=== PATIENT | female | born 1990 | race Hispanic/Latino ===

== ENCOUNTER 2021-01-23 17:09 | Emergency (ER) | payer BC, SELFPAY ==
[2021-01-23] MEDS ORDERED: METHYLPREDNISOLONE 125 MG INJ ONE (18:16)
[2021-01-23] MEDS ORDERED: DIPHENHYDRAMINE 50 MG/ML VIAL ONE (18:16)
--- NOTE | 2021-01-23 18:24 | EDPHYS ---
Physician Documentation [facility] Name: Deyanira Valencia Age: 30 yrs Sex: Female : 1990 Arrival Date: 01/23/2021 Time: 17:09 Bed 14 Private MD: Sindi Cao K ED Physician [place] Osorio HPI: 01/23 18:19 This 30 yrs old Female presents to ER via Ambulatory with complaints of Rash, rn Allergic Reaction. 18:19 The patient's rash thought to be caused by an unknown cause. The rash is located on the rn body diffusely. The rash can be described as erythematous, papular. Onset: The symptoms/episode began/occurred 2 week(s) ago. Associated signs and symptoms: Pertinent positives: itching, Pertinent negatives: burning sensation, difficulty breathing, fever, Pain. Severity of symptoms: At their worst the symptoms were mild in the emergency department the symptoms are unchanged. The patient has not experienced similar symptoms in the past. The patient has not recently seen a physician. And reports diffuse rash to entire body, started on torso and has spread to extremities, is very itchy. No shortness of breath or abdominal pain. No focal swelling. No change in medication or dosages. No known allergies. States improves with cortisone but then itchiness and rash returns.. Historical: - Allergies: 17:48 No Known Allergies; iw - Immunization history:: Adult Immunizations up to date. - Social history:: Smoking status: . - Family history:: not pertinent. - Hospitalizations: : No recent hospitalization is reported. ROS: 18:19 Constitutional: Negative for fever, chills, and weight loss, Eyes: Negative for injury, rn pain, redness, and discharge, Neck: Negative for injury, pain, and swelling, Cardiovascular: Negative for chest pain, palpitations, and edema, Respiratory: Negative for shortness of breath, cough, wheezing, and pleuritic chest pain, Abdomen/GI: Negative for abdominal pain, nausea, vomiting, diarrhea, and constipation, Back: Negative for injury and pain, : Negative for injury, bleeding, discharge, and swelling, MS/Extremity: Negative for injury and deformity, Skin: Positive for rash and itching Neuro: Negative for headache, weakness, numbness, tingling, and seizure. Exam: 18:19 Constitutional: This is a well developed, well nourished patient who is awake, alert, rn and in no acute distress. Head/Face: Normocephalic, atraumatic. Eyes: Pupils equal round and reactive to light, extra-ocular motions intact. Lids and lashes normal. Conjunctiva and sclera are non-icteric and not injected. Cornea within normal limits. Periorbital areas with no swelling, redness, or edema. ENT: No oral swelling or stridor Cardiovascular: Regular rate and rhythm. No pulse deficits. Respiratory: No increased work of breathing, no retractions or nasal flaring. Skin: Warm, dry, papular rash with excoriations diffusely. No bullae. No desquamation. No rash in flexural surfaces or on the hands. Vital Signs: 17:47 BP 113 / 84; Pulse 98; Resp 16; Temp 97.4; Pulse Ox 100% on R/A; iw 18:40 BP 124 / 87; Pulse 58; Resp 18; Pulse Ox 99% on R/A; jt3 MDM: 17:33 Patient medically screened. rn 18:19 Differential diagnosis: allergic reaction, Allergic reaction, drug reaction. Data rn reviewed: vital signs, nurses notes, and as a result, I will discharge patient. Counseling: I had a detailed discussion with the patient and/or guardian regarding: the historical points, exam findings, and any diagnostic results supporting the discharge/admit diagnosis, the need for outpatient follow up, to return to the emergency department if symptoms worsen or persist or if there are any questions or concerns that arise at home. Special discussion: I discussed with the patient/guardian in detail that at this point there is no indication for admission to the hospital. It is understood, however, that if the symptoms persist or worsen the patient needs to return immediately for re-evaluation. Administered Medications: 18:28 Drug: SOLU-Medrol (methylPREDNISolone sodium succinate) 125 mg Route: IM; Site: right jt3 gluteus; 18:51 Follow up: Response: No adverse reaction jt3 18:28 Drug: Benadryl (diphenhydrAMINE) 25 mg Route: IM; Site: right deltoid; jt3 18:51 Follow up: Response: No adverse reaction jt3 Disposition Summary: 01/23/21 18:23 Discharge Ordered Location: Home rn Problem: new rn Symptoms: have improved rn Condition: Stable rn Diagnosis - Rash and other nonspecific skin eruption rn Followup: rn - With: Private Physician - When: As needed - Reason: Recheck today's complaints, Re-evaluation by your physician Discharge Instructions: - Discharge Summary Sheet rn - Rash, Adult rn Forms: - Medication Reconciliation Form rn - Thank You Letter rn - Antibiotic infection control rn - Prescription Opioid Use rn - Work release form jt3 Prescriptions: - Hydroxyzine HCl 50 mg Oral Tablet - take 1 tablet by ORAL route every 8 hours As needed; 20 tablet; Refills: 0, rn Product Selection Permitted - Prednisone 20 mg Oral Tablet - take 3 tablets by ORAL route once daily for 5 days; 15 tablet; Refills: 0, rn Product Selection Permitted Signatures: Germania Haddad, RN Chico Zepeda MD MD rn TejcNicola santana RN RN jt3
--- NOTE | 2021-01-23 18:24 | ER ---
Nurse's Notes [facility] Name: Deyanira Valencia Age: 30 yrs Sex: Female : 1990 Arrival Date: 01/23/2021 Time: 17:09 Bed 14 Private MD: Sindi Cao K Diagnosis: Rash and other nonspecific skin eruption Presentation: 01/23 17:47 Chief complaint: Patient states: diffuse rash over torso and arms X 2 weeks , itchy. iw Coronavirus screen: At this time, the client does not indicate any symptoms associated with coronavirus-19. Ebola Screen: Patient negative for fever greater than or equal to 101.5 degrees Fahrenheit, and additional compatible Ebola Virus Disease symptoms Patient denies exposure to infectious person. Patient denies travel to an Ebola-affected area in the 21 days before illness onset. No symptoms or risks identified at this time. Onset: The symptoms/episode began/occurred 2 week(s) ago. Anaphylaxis evaluation, no signs or symptoms of anaphylaxis were noted. Initial Sepsis Screen: Does the patient meet any 2 criteria? No. Patient's initial sepsis screen is negative. Does the patient have a suspected source of infection? No. Patient's initial sepsis screen is negative. Risk Assessment: Do you want to hurt yourself or someone else? Patient reports no desire to harm self or others. Onset of symptoms was January 08, 2021. 17:47 Method Of Arrival: Ambulatory 17:47 Acuity: TONEY 5 iw Historical: - Allergies: 17:48 No Known Allergies; iw - Immunization history:: Adult Immunizations up to date. - Social history:: Smoking status: . - Family history:: not pertinent. - Hospitalizations: : No recent hospitalization is reported. Screenin:08 Abuse screen: Denies threats or abuse. Denies injuries from another. Nutritional jt3 screening: No deficits noted. Tuberculosis screening: No symptoms or risk factors identified. Fall Risk None identified. Assessment: 18:08 General: Appears in no apparent distress. Behavior is calm, cooperative. Pain: Denies jt3 pain. Respiratory: No deficits noted. Airway is patent Respiratory effort is even, unlabored, Breath sounds are clear. Derm: Rash noted that is red, Pt. reports small red bumps on her abdomen and under her breast. Alert and oriented x4. Denies difficulty breathing. Vital Signs: 17:47 BP 113 / 84; Pulse 98; Resp 16; Temp 97.4; Pulse Ox 100% on R/A; iw 18:40 BP 124 / 87; Pulse 58; Resp 18; Pulse Ox 99% on R/A; jt3 ED Course: 17:09 Patient arrived in ED. am2 17:10 Sindi Cao MD is Private Physician. am2 17:33 Chico Osorio MD is Attending Physician. rn 17:48 Triage completed. iw 17:49 Arm band placed on. iw 18:04 Nicola Iniguez RN is Primary Nurse. jt3 18:08 Patient has correct armband on for positive identification. Bed in low position. Call jt3 light in reach. Side rails up X2. 18:08 No provider procedures requiring assistance completed. jt3 Administered Medications: 18:28 Drug: SOLU-Medrol (methylPREDNISolone sodium succinate) 125 mg Route: IM; Site: right jt3 gluteus; 18:51 Follow up: Response: No adverse reaction jt3 18:28 Drug: Benadryl (diphenhydrAMINE) 25 mg Route: IM; Site: right deltoid; jt3 18:51 Follow up: Response: No adverse reaction jt3 Outcome: 18:23 Discharge ordered by . rn 18:45 Discharged to home ambulatory. jt3 18:45 Condition: improved 18:45 Discharge instructions given to patient. 18:49 Patient left the ED. jt3 Signatures: Germania Haddad RN DOTTY Chico Osorio MD MD rn Moreno, Amanda am2 Nicola Iniguez RN RN jt3
[2021-01-23 18:54] VITALS: TEMP 97.4
[2021-01-23 18:55] VITALS: BP 124/87; O2SAT 99
== END 2021-01-23 18:49 | disposition home or self-care (01) ==
LOC: ER 17:09
DX: R21 Rash and other nonspecific skin eruption (principal)
CPT/HCPCS: 96372; 99283; J1200; J2930

== ENCOUNTER 2022-06-08 14:33 | Emergency (ER) | payer OTHER ==
--- OUTSIDE RECORDS SUMMARY | 2022-06-08 14:39 | XMS REPORT | Continuity of Care Document ---
:1990 [facility] t Address [address] [facility] [address] [place] [address] Care Team Providers Name Role Phone Sindi Cao MD Primary Care Physician Jazzy Dominguez Attending Clinician Unavailable [email or web address] Attending Clinician Unavailable Dana Nunn MD Attending Clinician DANA NUNN Attending Clinician Unavailable Jazzy Dominguez Attending Clinician [phone] [email or web address] Attending Clinician Unavailable Gabino Alexis Attending Clinician [phone] DAVID VAUGHN Attending Clinician Unavailable MARIANA WAITE Attending Clinician Unavailable Jazzy Dominguez Admitting Clinician Unavailable [email or web address] Admitting Clinician Unavailable Dana Nunn MD Admitting Clinician DANA NUNN Admitting Clinician Unavailable GC_[place] Admitting Clinician Unavailable Payers Payer Name Policy Type Policy Number Effective Date Expiration Date Serena strong [facility] [id number] 2021 CHOICE (MEDICAID 00:00:00 REPLACEMENT - HMO) Problems Condition Condition Condition Status Onset Resolution Last Treating Co mments Source Name Details Category Date Date Treatment Clinician Date Alteration Alteration Disease Active 2021-03 [facility] in comfort in comfort 0-07 [facility] [place] [facility] uterine uterine Branch contractio contractio ns ns SARS-CoV-2 SARS-CoV-2 Problem Active [facility] 7[facility]06 Medical 00:00: 00 Genital Genital Problem Active [facility] herpes Herpes 5-12 Medical simplex Simplex 00:00: 00 Bile leak Bile leak Disease Active 2012-[address] [facility] Injury of Injury of Disease Active 2012-[address] [facility] bile duct bile duct 0[facility]28 [facility] Chest pain Chest pain Disease [facility] [place] Disease Active [facility] lithiasis lithiasis 7-16 [facility] with with 00:00: Medical obstructio obstructio 00 Ce nter n n ARF (acute ARF (acute Disease Active [facility] renal renal 7[facility] failure) failure) 00[facility] Medica l 00 Center Abdominal Abdominal Disease Active [facility] pain pain [facility] Allergies, Adverse Reactions, Alerts Allergy Allergy Status Severity Reaction(s) Onset Inactive Treating Comm ents Source Name Type Date Date Clinician No Known DA Active U 2021-03 [facility] [place] NO KNOWN Drug Active Univers ALLERGIE Class ity [facility] Social History Social Habit Start Date Stop Date Quantity Comments Source ASSERTION 2021-04-23 [facility] 00[facility]00 [facility] Alcohol intake 2015-09-02 2015-09-[address] [facility] 00:00:00 00:00:00 non-drinker of Medical Ce nter alcohol (finding) Sex Assigned At [address] [facility] 00:[facility]00 [facility] Smoking Status Start Date Stop Date Source Never Smoker [facility] Tobacco smoking consumption unknown [facility] Medications Ordered Filled Start Stop Current Ordering Indication Dosage Frequency Signature Comments Components Source Medication Medication Date Date Medication? Clinician (SIG) Name Name acyclovir acyclovir No 1 Q8H acyclovir [facility] 400 mg 400 mg 400 mg [facility] tablet Take tablet Take tablet 1 tablet 1 tablet Take 1 every 8 every 8 tablet hours by hours by every 8 oral route oral route hours by for 30 for 30 oral route days. days. for 30 days. fluticasone fluticasone No fluticason [facility] propionate propionate e Med ical 50 50 propionate mcg/actuati mcg/actuati 50 on nasal on nasal mcg/actuat spray,suspe spray,suspe ion nasal nsion SHAKE nsion SHAKE spray,susp LIQUID AND LIQUID AND ension USE 1 SPRAY USE 1 SPRAY SHAKE IN EACH IN EACH LIQUID AND NOSTRIL NOSTRIL USE 1 EVERY DAY EVERY DAY SPRAY IN EACH NOSTRIL EVERY DAY metronidazo metronidazo No 1 BID metronidaz [facility] le 500 mg le 500 mg ole 500 mg Medical tablet Take tablet Take tablet 1 tablet 1 tablet Take 1 twice a day twice a day tablet by oral by oral twice a route for 7 route for 7 day by days. days. oral route for 7 days. ondansetron ondansetron No 1 Q8H ondansetro [facility] HCl 4 mg HCl 4 mg n HCl 4 mg M edical tablet Take tablet Take tablet 1 tablet 1 tablet Take 1 every 8 every 8 tablet hours by hours by every 8 oral route. oral route. hours by oral route. valacyclovi valacyclovi No 1 Q12H valacyclov [facility] r 1 gram r 1 gram ir 1 gram Me dical tablet Take tablet Take tablet 1 tablet 1 tablet Take 1 every 12 every 12 tablet hours by hours by every 12 oral route oral route hours by for 7 days. for 7 days. oral route for 7 days. acyclovir acyclovir No 1 Q8H acyclovir [facility] 400 mg 400 mg 400 mg Medical tablet Take tablet Take tablet 1 tablet 1 tablet Take 1 every 8 every 8 tablet hours by hours by every 8 oral route oral route hours by for 30 for 30 oral route days. days. for 30 days. fluticasone fluticasone No fluticason [facility] propionate propionate e Med ical 50 50 propionate mcg/actuati mcg/actuati 50 on nasal on nasal mcg/actuat spray,suspe spray,suspe ion nasal nsion SHAKE nsion SHAKE spray,susp LIQUID AND LIQUID AND ension USE 1 SPRAY USE 1 SPRAY SHAKE IN EACH IN EACH LIQUID AND NOSTRIL NOSTRIL USE 1 EVERY DAY EVERY DAY SPRAY IN EACH NOSTRIL EVERY DAY metronidazo metronidazo No 1 BID metronidaz [facility] le 500 mg le 500 mg ole 500 mg Medical tablet Take tablet Take tablet 1 tablet 1 tablet Take 1 twice a day twice a day tablet by oral by oral twice a route for 7 route for 7 day by days. days. oral route for 7 days. ondansetron ondansetron No 1 Q8H ondansetro [facility] HCl 4 mg HCl 4 mg n HCl 4 mg M edical tablet Take tablet Take tablet 1 tablet 1 tablet Take 1 every 8 every 8 tablet hours by hours by every 8 oral route. oral route. hours by oral route. valacyclovi valacyclovi No 1 Q12H valacyclov [facility] r 1 gram r 1 gram ir 1 gram Me dical tablet Take tablet Take tablet 1 tablet 1 tablet Take 1 every 12 every 12 tablet hours by hours by every 12 oral route oral route hours by for 7 days. for 7 days. oral route for 7 days. acyclovir acyclovir No acyclovir [facility] 400 mg 400 mg 400 mg Medical tablet TAKE tablet TAKE tablet 1 TABLET BY 1 TABLET BY TAKE 1 MOUTH EVERY MOUTH EVERY TABLET BY 8 HOURS 8 HOURS MOUTH EVERY 8 HOURS fluticasone fluticasone No fluticason [facility] propionate propionate e Med ical 50 50 propionate mcg/actuati mcg/actuati 50 on nasal on nasal mcg/actuat spray,suspe spray,suspe ion nasal nsion SHAKE nsion SHAKE spray,susp LIQUID AND LIQUID AND ension USE 1 SPRAY USE 1 SPRAY SHAKE IN EACH IN EACH LIQUID AND NOSTRIL NOSTRIL USE 1 EVERY DAY EVERY DAY SPRAY IN EACH NOSTRIL EVERY DAY metronidazo metronidazo No 1 BID metronidaz [facility] le 500 mg le 500 mg ole 500 mg Medical tablet Take tablet Take tablet 1 tablet 1 tablet Take 1 twice a day twice a day tablet by oral by oral twice a route for 7 route for 7 day by days. days. oral route for 7 days. ondansetron ondansetron No 1 Q8H ondansetro [facility] HCl 4 mg HCl 4 mg n HCl 4 mg M edical tablet Take tablet Take tablet 1 tablet 1 tablet Take 1 every 8 every 8 tablet hours by hours by every 8 oral route. oral route. hours by oral route. valacyclovi valacyclovi No 1 Q12H valacyclov [facility] r 1 gram r 1 gram ir 1 gram Me dical tablet Take tablet Take tablet 1 tablet 1 tablet Take 1 every 12 every 12 tablet hours by hours by every 12 oral route oral route hours by for 7 days. for 7 days. oral route for 7 days. acyclovir acyclovir No acyclovir [facility] 400 mg 400 mg 400 mg Medical tablet TAKE tablet TAKE tablet 1 TABLET BY 1 TABLET BY TAKE 1 MOUTH EVERY MOUTH EVERY TABLET BY 8 HOURS 8 HOURS MOUTH EVERY 8 HOURS fluticasone fluticasone No fluticason [facility] propionate propionate e Med ical 50 50 propionate mcg/actuati mcg/actuati 50 on nasal on nasal mcg/actuat spray,suspe spray,suspe ion nasal nsion SHAKE nsion SHAKE spray,susp LIQUID AND LIQUID AND ension USE 1 SPRAY USE 1 SPRAY SHAKE IN EACH IN EACH LIQUID AND NOSTRIL NOSTRIL USE 1 EVERY DAY EVERY DAY SPRAY IN EACH NOSTRIL EVERY DAY metronidazo metronidazo No 1 BID metronidaz [facility] le 500 mg le 500 mg ole 500 mg Medical tablet Take tablet Take tablet 1 tablet 1 tablet Take 1 twice a day twice a day tablet by oral by oral twice a route for 7 route for 7 day by days. days. oral route for 7 days. ondansetron ondansetron No 1 Q8H ondansetro [facility] HCl 4 mg HCl 4 mg n HCl 4 mg M edical tablet Take tablet Take tablet 1 tablet 1 tablet Take 1 every 8 every 8 tablet hours by hours by every 8 oral route. oral route. hours by oral route. valacyclovi valacyclovi No 1 Q12H valacyclov [facility] r 1 gram r 1 gram ir 1 gram Me dical tablet Take tablet Take tablet 1 tablet 1 tablet Take 1 every 12 every 12 tablet hours by hours by every 12 oral route oral route hours by for 7 days. for 7 days. oral route for 7 days. ondansetron ondansetron No 1 Q8H ondansetro [facility] HCl 4 mg HCl 4 mg n HCl 4 mg M edical tablet Take tablet Take tablet 1 tablet 1 tablet Take 1 every 8 every 8 tablet hours by hours by every 8 oral route. oral route. hours by oral route. ondansetron ondansetron No 1 Q8H ondansetro [facility] HCl 4 mg HCl 4 mg n HCl 4 mg M edical tablet Take tablet Take tablet 1 tablet 1 tablet Take 1 every 8 every 8 tablet hours by hours by every 8 oral route. oral route. hours by oral route. ondansetron ondansetron No 1 Q8H ondansetro [facility] HCl 4 mg HCl 4 mg n HCl 4 mg M edical tablet Take tablet Take tablet 1 tablet 1 tablet Take 1 every 8 every 8 tablet hours by hours by every 8 oral route. oral route. hours by oral route. valacyclovi valacyclovi No 1 Q12H valacyclov [facility] r 1 gram r 1 gram ir 1 gram Me dical tablet Take tablet Take tablet 1 tablet 1 tablet Take 1 every 12 every 12 tablet hours by hours by every 12 oral route oral route hours by for 7 days. for 7 days. oral route for 7 days. metronidazo metronidazo No 1 BID metronidaz [facility] le 500 mg le 500 mg ole 500 mg Medical tablet Take tablet Take tablet 1 tablet 1 tablet Take 1 twice a day twice a day tablet by oral by oral twice a route for 7 route for 7 day by days. days. oral route for 7 days. ondansetron ondansetron No 1 Q8H ondansetro [facility] HCl 4 mg HCl 4 mg n HCl 4 mg M edical tablet Take tablet Take tablet 1 tablet 1 tablet Take 1 every 8 every 8 tablet hours by hours by every 8 oral route. oral route. hours by oral route. valacyclovi valacyclovi No 1 Q12H valacyclov [facility] r 1 gram r 1 gram ir 1 gram Me dical tablet Take tablet Take tablet 1 tablet 1 tablet Take 1 every 12 every 12 tablet hours by hours by every 12 oral route oral route hours by for 7 days. for 7 days. oral route for 7 days. metronidazo metronidazo No 1 BID metronidaz [facility] le 500 mg le 500 mg ole 500 mg Medical tablet Take tablet Take tablet 1 tablet 1 tablet Take 1 twice a day twice a day tablet by oral by oral twice a route for 7 route for 7 day by days. days. oral route for 7 days. ondansetron ondansetron No 1 Q8H ondansetro [facility] HCl 4 mg HCl 4 mg n HCl 4 mg M edical tablet Take tablet Take tablet 1 tablet 1 tablet Take 1 every 8 every 8 tablet hours by hours by every 8 oral route. oral route. hours by oral route. valacyclovi valacyclovi No 1 Q12H valacyclov [facility] r 1 gram r 1 gram ir 1 gram Me dical tablet Take tablet Take tablet 1 tablet 1 tablet Take 1 every 12 every 12 tablet hours by hours by every 12 oral route oral route hours by for 7 days. for 7 days. oral route for 7 days. metronidazo metronidazo No 1 BID metronidaz [facility] le 500 mg le 500 mg ole 500 mg Medical tablet Take tablet Take tablet 1 tablet 1 tablet Take 1 twice a day twice a day tablet by oral by oral twice a route for 7 route for 7 day by days. days. oral route for 7 days. ondansetron ondansetron No 1 Q8H ondansetro [facility] HCl 4 mg HCl 4 mg n HCl 4 mg M edical tablet Take tablet Take tablet 1 tablet 1 tablet Take 1 every 8 every 8 tablet hours by hours by every 8 oral route. oral route. hours by oral route. valacyclovi valacyclovi No 1 Q12H valacyclov [facility] r 1 gram r 1 gram ir 1 gram Me dical tablet Take tablet Take tablet 1 tablet 1 tablet Take 1 every 12 every 12 tablet hours by hours by every 12 oral route oral route hours by for 7 days. for 7 days. oral route for 7 days. metronidazo metronidazo No 1 BID metronidaz [facility] le 500 mg le 500 mg ole 500 mg Medical tablet Take tablet Take tablet 1 tablet 1 tablet Take 1 twice a day twice a day tablet by oral by oral twice a route for 7 route for 7 day by days. days. oral route for 7 days. ondansetron ondansetron No 1 Q8H ondansetro [facility] HCl 4 mg HCl 4 mg n HCl 4 mg M edical tablet Take tablet Take tablet 1 tablet 1 tablet Take 1 every 8 every 8 tablet hours by hours by every 8 oral route. oral route. hours by oral route. valacyclovi valacyclovi No 1 Q12H valacyclov [facility] r 1 gram r 1 gram ir 1 gram Me dical tablet Take tablet Take tablet 1 tablet 1 tablet Take 1 every 12 every 12 tablet hours by hours by every 12 oral route oral route hours by for 7 days. for 7 days. oral route for 7 days. metronidazo metronidazo No 1 BID metronidaz [facility] le 500 mg le 500 mg ole 500 mg Medical tablet Take tablet Take tablet 1 tablet 1 tablet Take 1 twice a day twice a day tablet by oral by oral twice a route for 7 route for 7 day by days. days. oral route for 7 days. ondansetron ondansetron No 1 Q8H ondansetro [facility] HCl 4 mg HCl 4 mg n HCl 4 mg M edical tablet Take tablet Take tablet 1 tablet 1 tablet Take 1 every 8 every 8 tablet hours by hours by every 8 oral route. oral route. hours by oral route. valacyclovi valacyclovi No 1 Q12H valacyclov [facility] r 1 gram r 1 gram ir 1 gram Me dical tablet Take tablet Take tablet 1 tablet 1 tablet Take 1 every 12 every 12 tablet hours by hours by every 12 oral route oral route hours by for 7 days. for 7 days. oral route for 7 days. fluticasone fluticasone No fluticason [facility] propionate propionate e Med ical 50 50 propionate mcg/actuati mcg/actuati 50 on nasal on nasal mcg/actuat spray,suspe spray,suspe ion nasal nsion SHAKE nsion SHAKE spray,susp LIQUID AND LIQUID AND ension USE 1 SPRAY USE 1 SPRAY SHAKE IN EACH IN EACH LIQUID AND NOSTRIL NOSTRIL USE 1 EVERY DAY EVERY DAY SPRAY IN EACH NOSTRIL EVERY DAY metronidazo metronidazo No 1 BID metronidaz [facility] le 500 mg le 500 mg ole 500 mg Medical tablet Take tablet Take tablet 1 tablet 1 tablet Take 1 twice a day twice a day tablet by oral by oral twice a route for 7 route for 7 day by days. days. oral route for 7 days. ondansetron ondansetron No 1 Q8H ondansetro [facility] HCl 4 mg HCl 4 mg n HCl 4 mg M edical tablet Take tablet Take tablet 1 tablet 1 tablet Take 1 every 8 every 8 tablet hours by hours by every 8 oral route. oral route. hours by oral route. valacyclovi valacyclovi No 1 Q12H valacyclov [facility] r 1 gram r 1 gram ir 1 gram Me dical tablet Take tablet Take tablet 1 tablet 1 tablet Take 1 every 12 every 12 tablet hours by hours by every 12 oral route oral route hours by for 7 days. for 7 days. oral route for 7 days. acyclovir acyclovir No acyclovir [facility] 400 mg 400 mg 400 mg Medical tablet TAKE tablet TAKE tablet 1 TABLET BY 1 TABLET BY TAKE 1 MOUTH EVERY MOUTH EVERY TABLET BY 8 HOURS 8 HOURS MOUTH EVERY 8 HOURS fluticasone fluticasone No fluticason [facility] propionate propionate e Med ical 50 50 propionate mcg/actuati mcg/actuati 50 on nasal on nasal mcg/actuat spray,suspe spray,suspe ion nasal nsion SHAKE nsion SHAKE spray,susp LIQUID AND LIQUID AND ension USE 1 SPRAY USE 1 SPRAY SHAKE IN EACH IN EACH LIQUID AND NOSTRIL NOSTRIL USE 1 EVERY DAY EVERY DAY SPRAY IN EACH NOSTRIL EVERY DAY ibuprofen ibuprofen No ibuprofen [facility] 600 mg 600 mg 600 mg Medical tablet TAKE tablet TAKE tablet 1 TABLET BY 1 TABLET BY TAKE 1 MOUTH EVERY MOUTH EVERY TABLET BY 6 HOURS 6 HOURS MOUTH NEEDED FOR NEEDED FOR EVERY 6 MILD PAIN. MILD PAIN. HOURS USE FIRST USE FIRST NEEDED FOR MILD PAIN. USE FIRST metronidazo metronidazo No 1 BID metronidaz [facility] le 500 mg le 500 mg ole 500 mg Medical tablet Take tablet Take tablet 1 tablet 1 tablet Take 1 twice a day twice a day tablet by oral by oral twice a route for 7 route for 7 day by days. days. oral route for 7 days. ondansetron ondansetron No 1 Q8H ondansetro [facility] HCl 4 mg HCl 4 mg n HCl 4 mg M edical tablet Take tablet Take tablet 1 tablet 1 tablet Take 1 every 8 every 8 tablet hours by hours by every 8 oral route. oral route. hours by oral route. oxycodone 5 oxycodone 5 No oxycodone [facility] mg tablet mg tablet 5 mg Medic al TAKE 1 TAKE 1 tablet TABLET BY TABLET BY TAKE 1 MOUTH EVERY MOUTH EVERY TABLET BY 4 HOURS 4 HOURS MOUTH NEEDED FOR NEEDED FOR EVERY 4 MODERATE MODERATE HOURS PAIN PAIN NEEDED FOR MODERATE PAIN valacyclovi valacyclovi No 1 Q12H valacyclov [facility] r 1 gram r 1 gram ir 1 gram Me dical tablet Take tablet Take tablet 1 tablet 1 tablet Take 1 every 12 every 12 tablet hours by hours by every 12 oral route oral route hours by for 7 days. for 7 days. oral route for 7 days. acyclovir acyclovir No acyclovir [facility] 400 mg 400 mg 400 mg Medical tablet TAKE tablet TAKE tablet 1 TABLET BY 1 TABLET BY TAKE 1 MOUTH EVERY MOUTH EVERY TABLET BY 8 HOURS 8 HOURS MOUTH EVERY 8 HOURS fluticasone fluticasone No fluticason [facility] propionate propionate e Med ical 50 50 propionate mcg/actuati mcg/actuati 50 on nasal on nasal mcg/actuat spray,suspe spray,suspe ion nasal nsion SHAKE nsion SHAKE spray,susp LIQUID AND LIQUID AND ension USE 1 SPRAY USE 1 SPRAY SHAKE IN EACH IN EACH LIQUID AND NOSTRIL NOSTRIL USE 1 EVERY DAY EVERY DAY SPRAY IN EACH NOSTRIL EVERY DAY ibuprofen ibuprofen No ibuprofen [facility] 600 mg 600 mg 600 mg Medical tablet TAKE tablet TAKE tablet 1 TABLET BY 1 TABLET BY TAKE 1 MOUTH EVERY MOUTH EVERY TABLET BY 6 HOURS 6 HOURS MOUTH NEEDED FOR NEEDED FOR EVERY 6 MILD PAIN. MILD PAIN. HOURS USE FIRST USE FIRST NEEDED FOR MILD PAIN. USE FIRST metronidazo metronidazo No 1 BID metronidaz [facility] le 500 mg le 500 mg ole 500 mg Medical tablet Take tablet Take tablet 1 tablet 1 tablet Take 1 twice a day twice a day tablet by oral by oral twice a route for 7 route for 7 day by days. days. oral route for 7 days. ondansetron ondansetron No 1 Q8H ondansetro [facility] HCl 4 mg HCl 4 mg n HCl 4 mg M edical tablet Take tablet Take tablet 1 tablet 1 tablet Take 1 every 8 every 8 tablet hours by hours by every 8 oral route. oral route. hours by oral route. oxycodone 5 oxycodone 5 No oxycodone [facility] mg tablet mg tablet 5 mg Medic al TAKE 1 TAKE 1 tablet TABLET BY TABLET BY TAKE 1 MOUTH EVERY MOUTH EVERY TABLET BY 4 HOURS 4 HOURS MOUTH NEEDED FOR NEEDED FOR EVERY 4 MODERATE MODERATE HOURS PAIN PAIN NEEDED FOR MODERATE PAIN valacyclovi valacyclovi No 1 Q12H valacyclov [facility] r 1 gram r 1 gram ir 1 gram Me dical tablet Take tablet Take tablet 1 tablet 1 tablet Take 1 every 12 every 12 tablet hours by hours by every 12 oral route oral route hours by for 7 days. for 7 days. oral route for 7 days. Immunizations Ordered Immunization Filled Immunization Date Status Commen ts Source Name Name Tdap Tdap Unknown Completed [facility] Tdap Tdap Unknown Completed [facility] Tdap Tdap Unknown Completed [facility] Tdap Tdap Unknown Completed [facility] Tdap Tdap Unknown Completed [facility] Tdap Tdap Unknown Completed [facility] Tdap Tdap Unknown Completed [facility] Tdap Tdap Unknown Completed [facility] Tdap Tdap Unknown Completed [facility] Tdap Tdap Unknown Completed [facility] Vital Signs Vital Name Observation Time Observation Value Comments Source BP Diastolic 2022-02-26 00:00:00 62 mm[Hg] [facility] Height 2022-02-26 00:00:00 60 [in_i] [facility] BMI (Body Mass 2022-02-26 00:00:00 33.6 kg/m2 [facility] Medical Index) BP Systolic 2022-02-26 00:00:00 120 mm[Hg] [facility] Body Weight 2022-02-26 00:00:00 172 [lb_av] [facility] BP Diastolic 2022-01-23 00:00:00 80 mm[Hg] [facility] Height 2022-01-23 00:00:00 60 [in_i] [facility] BMI (Body Mass 2022-01-23 00:00:00 32.6 kg/m2 [facility] Medical Index) BP Systolic 2022-01-23 00:00:00 120 mm[Hg] [facility] Body Weight 2022-01-23 00:00:00 167 [lb_av] [facility] BP Diastolic 2022-01-06 00:00:00 80 mm[Hg] [facility] Height 2022-01-06 00:00:00 60 [in_i] [facility] BMI (Body Mass 2022-01-06 00:00:00 36.3 kg/m2 [facility] Medical Index) BP Systolic 2022-01-06 00:00:00 124 mm[Hg] [facility] Body Weight 2022-01-06 00:00:00 186 [lb_av] [facility] BP Diastolic 2021-12-31 00:00:00 64 mm[Hg] [facility] Height 2021-12-31 00:00:00 60 [in_i] [facility] BMI (Body Mass 2021-12-31 00:00:00 35.7 kg/m2 [facility] Medical Index) BP Systolic 2021-12-31 00:00:00 130 mm[Hg] [facility] Body Weight 2021-12-31 00:00:00 183 [lb_av] [facility] Heart rate 2021-12-26 15:00:00 76 /min [facility] Oxygen saturation in 2021-12-26 15:00:00 98 /min [facility] Arterial blood by [facility] Pulse oximetry Branch Systolic blood 2021-12-26 14:45:00 127 mm[Hg] [facility] Diastolic blood 2021-12-26 14:45:00 76 mm[Hg] [facility] Body temperature 2021-12-26 12:00:00 36.89 Dannielle [facility] 2021-12-26 12:00:00 18 /min [facility] Body height 2021-12-26 12:00:00 152.4 cm [facility] Body weight 2021-12-26 12:00:00 82.101 kg [facility] BMI 2021-12-26 12:00:00 35.35 kg/m2 [facility] BP Diastolic 2021-12-25 00:00:00 60 mm[Hg] [facility] Height 2021-12-25 00:00:00 60 [in_i] [facility] BMI (Body Mass 2021-12-25 00:00:00 36.1 kg/m2 [facility] Medical Index) BP Systolic 2021-12-25 00:00:00 120 mm[Hg] [facility] Body Weight 2021-12-25 00:00:00 185 [lb_av] [facility] BP Diastolic 2021-12-17 00:00:00 78 mm[Hg] [facility] BP Systolic 2021-12-17 00:00:00 110 mm[Hg] [facility] Body Weight 2021-12-17 00:00:00 184 [lb_av] [facility] BP Diastolic 2021-12-03 00:00:00 66 mm[Hg] [facility] Height 2021-12-03 00:00:00 60 [in_i] [facility] BMI (Body Mass 2021-12-03 00:00:00 35.3 kg/m2 [facility] Medical Index) BP Systolic 2021-12-03 00:00:00 120 mm[Hg] [facility] Body Weight 2021-12-03 00:00:00 181 [lb_av] [facility] BP Diastolic 2021-11-19 00:00:00 58 mm[Hg] [facility] Height 2021-11-19 00:00:00 60 [in_i] [facility] BMI (Body Mass 2021-11-19 00:00:00 34.6 kg/m2 [facility] Medical Index) BP Systolic 2021-11-19 00:00:00 100 mm[Hg] [facility] Body Weight 2021-11-19 00:00:00 177 [lb_av] [facility] BP Diastolic 2021-11-05 00:00:00 70 mm[Hg] [facility] Height 2021-11-05 00:00:00 60 [in_i] [facility] BMI (Body Mass 2021-11-05 00:00:00 33.6 kg/m2 [facility] Medical Index) BP Systolic 2021-11-05 00:00:00 102 mm[Hg] [facility] Body Weight 2021-11-05 00:00:00 172 [lb_av] [facility] BP Diastolic 2021-10-22 00:00:00 60 mm[Hg] [facility] Height 2021-10-22 00:00:00 60 [in_i] [facility] BMI (Body Mass 2021-10-22 00:00:00 31[facility]8 [facility] BP Systolic 2021-10-22 00:00:00 110 mm[Hg] [facility] Body Weight 2021-10-22 00:00:00 163 [lb_av] [facility] BP Diastolic 2021-09-24 00:00:00 68 mm[Hg] [facility] Height 2021-09-24 00:00:00 60 [in_i] [facility] BMI (Body Mass 2021-09-24 00:00:00 31.6 kg/m2 [facility] BP Systolic 2021-09-24 00:00:00 100 mm[Hg] [facility] Body Weight 2021-09-24 00:00:00 162 [lb_av] [facility] BP Diastolic 2021-08-26 00:00:00 72 mm[Hg] [facility] BP Systolic 2021-08-26 00:00:00 102 mm[Hg] [facility] Body Weight 2021-08-26 00:00:00 158 [lb_av] [facility] BP Diastolic 2021-07-29 00:00:00 70 mm[Hg] [facility] Height 2021-07-29 00:00:00 60 [in_i] [facility] BMI (Body Mass 2021-07-29 00:00:00 30.1 kg/m2 [facility] BP Systolic 2021-07-29 00:00:00 124 mm[Hg] [facility] Body Weight 2021-07-29 00:00:00 154 [lb_av] Jw M edical BP Diastolic 2021-07-15 00:00:00 58 mm[Hg] [facility] ed[facility] Height 2021-07-15 00:00:00 60 [in_i] [facility] ed[facility] BMI (Body Mass 2021-07-15 00:00:00 29.5 kg/m2 [facility] BP Systolic 2021-07-15 00:00:00 116 mm[Hg] [facility] Body Weight 2021-07-15 00:00:00 151 [lb_av] [facility] BP Diastolic 2021-07-01 00:00:00 64 mm[Hg] [facility] Height 2021-07-01 00:00:00 60 [in_i] [facility] BMI (Body Mass 2021-07-01 00:00:00 29.3 kg/m2 [facility]) BP Systolic 2021-07-01 00:00:00 110 mm[Hg] Jw [facility] ed[facility] Body Weight 2021-07-01 00:00:00 150 [lb_av] Jw Oquendo edical Procedures Procedure Date / Time Performing Clinician Source Performed [id number] 2022-01-10 00:00:00 ROMMEL.Patricia [facility] NOTICE OF PRIVACY 2021-12-26 11:37:32 Doctor Unassigned, No [facility] PRACTICES Name Medical Branch CONSENT/REFUSAL FOR 2021-12-26 11:37:17 Doctor Unassigned, No Un [facility] DIAGNOSIS AND TREATMENT Name Medical Branch ASSIGNMENT OF BENEFITS 2021-12-26 11:36:58 Doctor Unassigned, No [facility] Name Medical Branch ULTRASOUND RE TO 2021-11-19 00:00:00 [facility] EVALUATION OF UTERUS PER FETUS US, obstetric, 2021-07-29 00:00:00 [facility] maternal evaluation + anatomy ABDOMINAL ULTRASOUND OF 2021-07-01 00:00:00 [facility] UTERUS (LESS THAN 14 WEEKS 0 DAYS) SINGLE OR FIRST FETUS Procedure on Small [facility] Intestine Procedure on [facility] Gallbladder Plan of Care Planned Activity Planned Date Details Comments Source Future Scheduled Test 2022-06-08 COVID-19 VACCINE [facility] 14:36:05 (#1) [code = COVID-19 VACCINE (#1)] Future Scheduled Test 2022-06-08 Screening for [facility] 14:36:05 malignant neoplasm of cervix (procedure) [code = 617534907] Future Scheduled Test 2022-06-08 INFLUENZA VACCINE [facility] 14:36:05 [code = INFLUENZA VACCINE] Diagnostic Test 2022-01-06 urinalysis, [facility] Pending 00:00:00 dipstick [code = urinalysis, dipstick] Encounters Start End Encounter Admission Attending Care Care Encounter Source Date/Time Date/Time Type Type Clinicians Facility Department ID 2022-01-14 [id number] [facility] 13:49:[address] [facility] 2022-02-26 2022-02-26 Sameen [facility] [id number] [facility] 00:00:00 00:00:00 Elina Dominguez [facility] karen ARCOS: [address], Office* [address] [address] , Ph. 2022-02-25 2022-02-25 Outpatient GC_[facility]AOMC_ PRIV PRIV [id number] [facility] 00:00:00 00:00:00 Noorcolt [id number] [facility] teodoro 2022-02-25 2022-02-25 Outpatient GC_[facility]OM[facility]_ PRIV PRIV 237 [id number] [facility] 00:00:00 00:00:00 Noorudrayna [id number] [facility] 2022-02-25 2022-02-25 Outpatient GC_[facility]OM[facility]_ PRIV PRIV 237 [id number] [facility] 00:00:00 00:00:00 Noorcolt [id number] [facility] 2022-02-16 2022-02-16 Outpatient GC_[facility]WHAOMC_ PRIV PRIV 237 [id number] [facility] 00:00:00 00:00:00 Noorudrayna [id number] [facility] teodoro 2022-01-23 2022-01-23 Outpatient GC_[facility]AOMC_ PRIV PRIV 237 [id number] [facility] 00:00:00 00:00:00 Noorudrayna [id number] [facility] teodoro 2022-01-23 2022-01-23 Sameen [facility] [id number] [facility] 00:00:00 00:00:00 Elina Dominguez [facility] karen ARCOS: [address] [facility] Kevin [address], Office* [address], [place] [address] , Ph. 2022-01-22 2022-01-22 Outpatient GC_[facility]WHAOMC_ PRIV PRIV 237 [id number] [facility] 00:00:00 00:00:00 Noorudrayna [id number] [facility] teodoro 2022-01-17 2022-01-17 Outpatient GC_[facility]_ PRIV PRIV 237 [id number] [facility] 00:00:00 00:00:00 Noorudrayna [id number] [facility] teodoro 2022-01-15 2022-01-15 Outpatient GC_[facility]OM[facility]_ PRIV PRIV 237 [id number] [facility] 00:00:00 00:00:00 Daliceliocolt [id number] [facility] 2022-01-09 2022-01-13 Inpatient EM MICHAEL Dmoinguez OBPP [id number] [facility] 12:49:00 23:00:00 Sameen 49 [facility] 2022-01-06 2022-01-06 [facility]en [facility] 00:00:00 00:00:00 Elina Dominguez MD: [address], Office* [address], [place] [address] , Ph. 2021-12-31 2021-12-31 Emergency EM OLINDA Dominguez MAGALI [id number] [facility] 12:36:00 16:04:00 Sameen 38 [facility] 2021-12-31 2021-12-31 Sameen [facility] 00:00:00 00:00:00 Elina Dominguez [place] karen ARCOS: [address] T[address], Office* [address], [place] [address] , Ph. 2021-12-26 2021-12-26 [facility] [id number] Univers 06:50:00 10:15:00 Encounter Dana SORTO [id number] itmadeline [facility] [id number] [facility] [id number] [facility] 083 Branch 2021-12-26 2021-12-26 Outpatient P [facility] T[facility] [id number] Univers 06:50:00 10:15:00 DANA [facility] 2021-12-25 2021-12-25 Sameen [facility] 06 [facility] 00:00:00 00:00:00 Elina Dominguez [place] karen ARCOS: [address], Office* [address], [place] [address] , Ph. 2021-12-17 2021-12-17 Sameen [facility] 00:00:00 00:00:00 Angelica [facility] karen MD: 7900 [facility], Office* [address], [place] [address] , Ph. 2021-12-07 2021-12-07 Outpatient GC_[facility]AOM[facility]_ PRIV PRIV [id number] [facility] 00:00:00 00:00:00 Nooruddin [id number] [facility] 2021-12-03 2021-12-03 Outpatient Nooruddin, PRIV PRIV [id number] 00:00:00 00:00:00 Sameen [id number] 2021-12-03 2021-12-03 Sameen [facility] [place] [facility] 00:00:00 00:00:00 Angelica [facility] karen MD: 7900 [facility] Kevin Colbertnin [address], Office* [address], [place] [address] , Ph. 2021-11-28 2021-11-28 Outpatient GC_SWHATBIC PRIV PRIV 237 [id number] [facility] 00:00:00 00:00:00 _Nooruddi [id number] [facility] 2021-11-19 2021-11-19 Outpatient Nooruddin, PRIV PRIV [id number] 00:00:00 00:00:00 Same [id number] 2021-11-19 2021-11-19 Sameen [facility] 00:00:00 00:00:00 Angelica [facility] karen MD: [address] G[facility]ril[facility] CLINICAvril [address], Office* [address], [place] [address] , Ph. 2021-11-07 2021-11-07 Outpatient GC_[facility]_ PRIV PRIV 237 [id number] [facility] 00:00:00 00:00:00 Nooruddin [id number] [facility] teodoro 2021-11-05 2021-11-05 Gabino [facility] 17 [facility] 00:00:00 00:00:00 Cody [facility] gerard Alexis GC_SHAHID_ : [address]* [address], [address], [place] [address] , Ph. 2021-11-05 2021-11-05 Outpatient Reuben, PRIV PRIV [id number] 00:00:00 00:00:00 Gabino [id number] Cody [id number] 2021-10-31 2021-10-31 Outpatient GC_[facility]_ PRIV PRIV 237 [id number] [facility] 00:00:00 00:00:00 Nooruddin [id number] [facility] 2021-10-22 2021-10-22 Outpatient GC_[facility]AOM[facility]_ PRIV PRIV 237 [id number] [facility] 00:00:00 00:00:00 Nooruddin [id number] [facility] 2021-10-22 2021-10-22 Sameen [facility] 03 [facility] 00:00:00 00:00:00 Elina Dominguez [place] karen ARCOS: 7900 GC_[facility]_ Kevin [address], Office* [address], [place] [address] , Ph. 2021-10-22 2021-10-22 Outpatient Nooruddin, PRIV PRIV [id number] 00:00:00 00:00:00 Sameen [id number] 2021-09-30 2021-09-30 Outpatient GC_[facility]_ PRIV PRIV 237 [id number] [facility] 00:00:00 00:00:00 Nooruddin [id number] [facility] teodoro 2021-09-24 2021-09-24 Outpatient GC_[facility]_ PRIV PRIV 237 [id number] [facility] 12:11:00 12:11:00 Nooruddin [id number] [facility] 2021-09-24 2021-09-24 Sameen [facility] 06 [facility] 00:00:00 00:00:00 Elina Dominguez [place] karen ARCOS: 7900 GC_[facility]_ Kevin [address], Office* [address], [place] [address] , Ph. 2021-09-24 2021-09-24 Outpatient Nooruddin, PRIV PRIV [id number] 00:00:00 00:00:00 [facility] [id number] 2021-09-18 2021-09-18 Outpatient GC_[facility]WHAOMC_ PRIV PRIV [id number] [facility] 12:55:00 12:55:00 Nooruddin [id number] [facility] 2021-09-18 2021-09-18 Outpatient GC_SWHAOMC_ PRIV PRIV 237 [id number] [facility] 12:55:00 12:55:00 Nooruddin [id number] [facility] 2021-08-28 2021-08-28 Outpatient GC_[facility]WHAOMC_ PRIV PRIV 237 [id number] [facility] 08:31:00 08:31:00 Nooruddin [id number] [facility] 2021-08-26 2021-08-26 Outpatient GC_[facility]_ PRIV PRIV 237 [id number] [facility] 11:32:00 11:32:00 Nooruddin [id number] [facility] 2021-08-26 2021-08-26 Sameen [facility] [id number] [facility] 00:00:00 00:00:00 Angelica [facility] karen ARCOS: 7400 GC_[facility]_ Kevin [address], Office* [address], [place] [address] , Ph. 2021-08-26 2021-08-26 Outpatient Nooruddin, PRIV PRIV [id number] 00:00:00 00:00:00 Galina [id number] 2021-08-21 2021-08-21 Outpatient GC_SWHATBIC PRIV PRIV [id number] [facility] 03:23:00 03:23:00 _Nooruddi [id number] [facility] 2021-08-21 2021-08-21 Outpatient GC_[facility]AOMC_ PRIV PRIV [id number] [facility] 03:23:00 03:23:00 Nooruddin [id number] [facility] 2021-08-19 2021-08-19 Outpatient GC_SWHATBIC PRIV PRIV 237 [id number] [facility] 10:21:00 10:21:00 _Nooruddi [id number] [facility] 2021-07-31 2021-07-31 Outpatient GC_[facility]WHAOMC_ PRIV PRIV 237 [id number] [facility] 11:07:00 11:07:00 Nooruddin [id number] [facility] 2021-07-29 2021-07-29 Outpatient GC_[facility]AOMC_ PRIV PRIV 237 [id number] [facility] 04:05:00 04:05:00 Noorudrayna [id number] [facility] 2021-07-29 2021-07-29 Sameen [facility] 10 [facility] 00:00:00 00:00:00 Angelica [facility] karen ARCOS: 7900 GC_SWHAOMC_ [facility], Office* [address], [place] [address] , Ph. 2021-07-29 2021-07-29 Outpatient Nooruddin, PRIV PRIV [id number] 00:00:00 00:00:00 Jazzy [id number] 2021-07-23 2021-07-23 Outpatient GC_[facility]_ PRIV PRIV 237 [id number] [facility] 07:00:00 07:00:00 Nooruddin [id number] [facility] 2021-07-23 2021-07-23 Outpatient GC_SWHAOMC_ PRIV PRIV 237 [id number] [facility] 07:00:00 07:00:00 Noorcolt [id number] [facility] 2021-07-22 2021-07-22 Outpatient GC_SWHAOMC_ PRIV PRIV 237 [id number] [facility] 02:09:00 02:09:00 Nooruddin [id number] [facility] 2021-07-15 2021-07-15 Outpatient GC_[facility]AOMC_ PRIV PRIV 237 [id number] [facility] 02:31:00 02:31:00 Nooruddin [id number] [facility] 2021-07-15 2021-07-15 Sameen [facility] 00:00:00 00:00:00 Angelica [facility] karen MD: 7900 GC_S[facility]AOMC_ Kevin [facility], Office* [address], [place] [address] , Ph. 2021-07-15 2021-07-15 Outpatient Nooruddin, PRIV PRIV [id number] 00:00:00 00:00:00 Jazzy [id number] 2021-07-14 2021-07-14 Outpatient GC_[facility]AOM[facility]_ PRIV PRIV 237 [id number] [facility] 01:31:00 01:31:00 Nooruddin [id number] [facility] 2021-07-10 2021-07-10 Outpatient GC_[facility]WHAOMC_ PRIV PRIV [id number] [facility] 01:29:00 01:29:00 Nooruddin [id number] [facility] 2021-07-09 2021-07-09 Outpatient GC_SWHAOMC_ PRIV PRIV 237 [id number] [facility] 07:54:00 07:54:00 Nooruddin [id number] [facility] 2021-07-01 2021-07-01 Outpatient GC_SWHAOMC_ PRIV PRIV 237 [id number] [facility] 02:59:00 02:59:00 Nooruddin [id number] [facility] 2021-07-01 2021-07-01 Outpatient Nooruddin, PRIV PRIV [id number] 00:00:00 00:00:00 Jazzy [id number] 2021-07-01 2021-07-01 Sameen [facility] 00:00:00 00:00:00 Angelica [facility] karen ARCOS: 7900 GC_[facility]OM[facility]_ Kevin [facility], Office* [address], [place] [address] , Ph. 2021-06-30 2021-06-30 Outpatient GC_[facility]AOMC_ PRIV PRIV 237 [id number] [facility] 04:43:00 04:43:00 Nooruddin [id number] [facility] 2021-06-27 2021-06-27 Outpatient GC_[facility]AOMC_ PRIV PRIV 237 [id number] [facility] 04:12:00 04:12:00 Nooruddin [id number] [facility] 2021-06-20 2021-06-20 Outpatient GC_SWHAOMC_ PRIV PRIV 237 [id number] [facility] 12:04:00 12:04:00 Nooruddin [id number] [facility] 2021-06-03 2021-06-03 Outpatient GC_[facility]WHAOMC_ PRIV PRIV [id number] [facility] 10:20:00 10:20:00 Nooruddin [id number] [facility] 2012-09-20 2012-09-20 Outpatient JH VAUGHN, [facility] [id number] 06:13:00 06:13:00 DAVID [id number] [facility] 2012-07-28 2012-07-28 Emergency ER RAVINDRA, [facility] [id number] [place] 21:12:00 23:40:00 MARIANA [id number] [facility] Results Test Description Test Time Test Comments Results Result Comments Source SURGICAL 2022-01-27 16:46:00 Test Item Value Reference Range Interpretation Comme nts SURGICAL RUN DATE: (test 01/27/22 [facility] PAGE 1 RUN TIME: 1646 Specimen Inquiry RUN USER: INTERFACE code = PATIENT: HIEU SINHA LOC: BE U #: [id number] AGE/SX: 31/ ROOM: [facility] RE01/09/22REG DR: Sa vic Dominguez MD : 89 BED: A DIS: 01/13/22 STATUS: DIS IN TLOC: SPEC #: [id number] RECD: STATUS: MARVINMarlon ROSA #: [id number] EZIO: 01/10/22- SUBM DR: Jazzy Dominguez MD ENTERED: 01/12/22 SP TYPE: SURGICAL OTHR DR: ORDERED: ANATOMIC SPEC, SPEC TRACK, [id number] PROCEDURES: 88 307 (01/12/22) TISSUES: A. 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 - Umbilical cord with 3 coils per 10 cm.- Three vessel umbilical cord with no histo logic abnormalities. - membranes with mild acute chorioamnionitis. GROSS DESCRIPTION Received shala kelly, labeled with Patient's name, , MRN and "placenta", is a singletonplacenta with attac hed cord and membranes. The umbilical cord measures 48 cm in totallength (including 12 cm detached fr agment), 1.5 cm in diameter, is centrally placed, 7 cmfrom the nearest placental edge, is tammie-whi te, smooth and glistening. Cross sectioningdemonstrates 3 vessels. There are 3 coils in 10 cm of cord.The membranes are estrada, with white patches, dusky and semiopaque. They have marginalattachment and are ruptured 2 cm from the disc edge.The placental disc is ovoid, measures 19.5 x 15 x 2.8 cm, and weig hs 418 grams without themembranes and cord. The surface is purple-blue, smooth and glis tening, withunremarkable vasculature. The maternal surface estrada-brown, smooth, glistening; it is in tactand complete. Serial sections through the disc show estrada-red, beefy parenchyma; no lesionsare gr ossly identified. [employer] Route Traffic Controller sections submitted as follows: A1: Membrane roll and cordA2-4: Disc cros s-sections.XZ 01/26/22 Technical component performed at [id number] , [place], [place] [address] Unless gross only, the diagnosis is based upon microscopic examination.Immunohistochemi stry: This test was developed and its performance characteristicsdetermined by this laboratory. It has n ot been approved nor does it need approval by the CONTINUED ON NEXT PAGE RUN DATE: 01/27/22 [facility] PAGE 2 RUN TIME: 1646 Specimen Inquiry RUN USER: INTERFACE SPEC #: [id number] PATIENT: HIEU LOPEZ #[id number] (Continued) GROSS DESCRIPTION (Continued ) [facility]. Appropriate positive and negative controls are reviewed and judged to beacceptable. This kierra milton is certified under the Clinical Laboratory ImprovementAmendments (CLIA-88) as qualified to pe rform high complexity clinical laboratory testing. CLINICAL INFORMATION 01/10/22, 39.3 WEEKS, G2 T0 L0, C/S, FEVER , CHORIO, FAILURE OF DESCENT, HSV+. Signed SIGNATURE ON FILE Socorro Padron 01/27/22 1646 END OF REPORT COMPREHENSIVE METABOLIC [id number] 11:21:00 Test Item Value Reference Range Interpretation Comments SODIUM (test code = NA) 138 mEq/L 135-145 N POTASSIUM (test code = K) 3.4 mEq/L 3.5-5.0 L CHLORIDE (test code = CL) 105 mEq/L 100-115 N CARBON DIOXIDE (test code = CO2) 28 mEq/L 22-31 N ANION GAP (test code = GAP) 8.80 10-20 L GLUCOSE (test code = GLU) 91 mg/dL 65-110 N BLOOD UREA NITROGEN (test code = 11 mg/dL 7-18 N BUN) GLOMERULAR FILTRATION RATE (test 99 ml/min >60 N code = GFR) CREATININE (test code = CREAT) 0.7 mg/dL 0.5-1.0 N TOTAL PROTEIN (test code = PROT) 4.8 gm/dL 6.3-8.2 L ALBUMIN (test code = ALB) 1.9 gm/dL 3.4-4.8 L CALCIUM (test code = CA) 8.0 mg/dL 8.4-10.2 L BILIRUBIN TOTAL (test code = BILT) 0.4 mg/dL 0.2-1.0 N SGOT/AST (test code = AST) 16 units/L 15-37 N SGPT/ALT (test code = ALT) 14 units/L 12-78 N ALKALINE PHOSPHATASE TOTAL (test 74 units/L 46-116 code = ALKP) NURSE ADVISED SHE WILL DRAW THIS PATIENT.CBC W/AUTO [id number] 11:11:00 Test Item Value Reference Range Interpretation Comments WHITE BLOOD CELL (test 17.0 K/mm3 6.5-12.3 H Resul ts verified by code = WBC) repeat analysis RED BLOOD CELL (test 3.35 M/mm3 3.51-4.69 L code = RBC) HEMOGLOBIN (test code = 10.1 g/dL 10.1-13.8 N HGB) HEMATOCRIT (test code = 29.9 % 32.5-41.8 L HCT) MEAN CELL VOLUME (test 89.3 fL 84.6-96.6 N code = MCV) MEAN CELL HGB (test code 30.1 pg 27.3-33.9 N = MCH) MEAN CELL HGB 33.8 gm/dL 32.0-34.2 N CONCETRATION (test code = MCHC) RED CELL DISTRIBUTION 13.1 % 12.2-16.3 N WIDTH (test code = RDW) PLATELET COUNT (test 319 K/mm3 134-363 N code = PLT) MEAN PLATELET VOLUME 9.4 fL 9.2-12.7 N (test code = MPV) NEUTROPHIL % (test code 85.3 % 57.9-77.3 H = NT%) LYMPHOCYTE % (test code 8.9 % 14.5-29.7 L = LY%) MONOCYTE % (test code = 4.1 % 3.6-10.2 N MO%) EOSINOPHIL % (test code 0.6 % 0.0-3.0 N = EO%) BASOPHIL % (test code = 0.2 % 0.1-0.9 N BA%) NEUTROPHIL # (test code 14.5 K/mm3 = NT#) LYMPHOCYTE # (test code 1.5 K/mm3 = LY#) MONOCYTE # (test code = 0.7 K/mm3 MO#) EOSINOPHIL # (test code 0.11 K/mm3 = EO#) BASOPHIL # (test code = 0.0 K/mm3 BA#) RBC MORPHOLOGY REQUIRED NORMAL NORMAL (test code = RBCM) PLATELET MORPHOLOGY NORMAL NORMAL REQUIRED (test code = PLTMR) NURSE ADVISED SHE WILL DRAW THIS PATIENT.- XR ABDOMEN 1 [id number] 00:00:00 [facility] : 1990 Sex: F Patient Name: HIEU LOPEZ Unit No: [id number] EXAMS: CPT CODE: [id number] XR ABDOMEN 1 V 58240 PROCEDURE INFORMATION: Exam: XR Abdomen Exam date and time: 01/12/2022 10:06 AM Age: 31 years old Clinical indication: Nausea and vomiting; Prior surgery; Surgery type: 01/10, [id number]; Additional info: Continuous nausea and vomiting TECHNIQUE: Imaging protocol: Radiologic exam of the abdomen. Views: Frontal supine view of the abdomen. 1 View. COMPARISON: No relevant prior studies available. FINDINGS: Heart/Mediastinum: The cardiac silhouette is magnified in the AP projection. Lungs: Clear lung bases. Pleural spaces: No pleural fluid. Gastrointestinal tract: Diffuse bowel air distention without pneumatosis. Low volume air is identified in the rectal vault favoring preserved bowel patency. Organs: Cholecystectomy clips are seen in the right upper quadrant. Vasculature: No portal venous air. Bones/joints: The visualized skeleton is grossly unremarkable. Soft tissues: No abnormal radiopaque densities. IMPRESSION: 1. Findings favoring postoperative adynamic ileus. 2. No pneumatosis or portal venous air. 3. Clear lung bases. 4. Prior cholecystectomy. at 1019 Reported and signed by: Rebel Fuchs, [facility]: Jazzy Dominguez MD Technologist: Rod Johnson, RT Trnscrbd D/ (1019) GCD.CPS Orig Print D/T: S: 01/12/2022 (1019) [facility] NAME: HIEU LOPEZ Radiology Department PHYS: MARICEL.[place] - Jazzy Dominguez [address] : 1990 AGE: 31 SEX: F [place], [place] [address] LOC: F.4670 A PHONE #: [phone] EXAM DATE: 01/12/2022 STATUS: ADM IN FAX #: [phone] RAD NO: Page 1 Signed ReportHGB [id number] 12:18:00 Test Item Value Reference Range Interpretation Comments HEMOGLOBIN (test code = HGB) 10.5 g/dL 10.1-13.8 N HEMATOCRIT (test code = HCT) 30.5 % 32.5-41.8 L UR PROTEIN/CREATININE [id number] 00:41:00 Test Item Value Reference Range Interpretation Comments UR PROTEIN RANDOM (test code = 246.5 mg/dL PROTU) UR CREATININE RANDOM (test code 130.3 mg/dL = CREATU) PROTEIN/CREATININE RATIO (test 1.9 mg/gcrea <200 code = P/CRATIO) COMPREHENSIVE METABOLIC [id number] 22:33:00 Test Item Value Reference Range Interpretation Comments SODIUM (test code = NA) 134 mEq/L 135-145 L POTASSIUM (test code = K) 4.4 mEq/L 3.5-5.0 N CHLORIDE (test code = CL) 101 mEq/L 100-115 N CARBON DIOXIDE (test code = CO2) 24 mEq/L 22-31 N ANION GAP (test code = GAP) 13.70 10-20 N GLUCOSE (test code = GLU) 132 mg/dL 65-110 H BLOOD UREA NITROGEN (test code = 9 mg/dL 7-18 N BUN) GLOMERULAR FILTRATION RATE (test 66 ml/min >60 N code = GFR) CREATININE (test code = CREAT) 1.0 mg/dL 0.5-1.0 N TOTAL PROTEIN (test code = PROT) 5.9 gm/dL 6.3-8.2 L ALBUMIN (test code = ALB) 2.4 gm/dL 3.4-4.8 L CALCIUM (test code = CA) 8.3 mg/dL 8.4-10.2 L BILIRUBIN TOTAL (test code = 0.5 mg/dL 0.2-1.0 N BILT) SGOT/AST (test code = AST) 20 units/L 15-37 N SGPT/ALT (test code = ALT) 27 units/L 12-78 N ALKALINE PHOSPHATASE TOTAL (test 117 units/L 46-116 H code = ALKP) AG HEPATITIS B [id number] 14:27:00 Test Item Value Reference Range Interpretation Comments AG HEPATITIS B SURFACE (test code NONREACTIVE NONREACTIVE = HBSAG) AB HEPATITIS C [id number] 14:27:00 Test Item Value Reference Range Interpretation Comments AB HEPATITIS C (test code = NONREACTIVE NONREACTIVE HCVAB) SIGNAL TO CUTOFF (test code = 0.03 <0.80 N CUTOFF) AB [id number] 14:27:00 Test Item Value Reference Range Interpretation Comments AB TREPONEMA (test code = TREPAB) NONREACTIVE NONREACTIVE AB HIV 1 14:27:00 Test Item Value Reference Range Interpretation Comments AB HIV 1 2 (test NONREACTIVE NONREACTIVE Done by [facility] code = [id number]) 4th Gen HIV Ag/Ab Combo Screen CBC W/AUTO [id number] 13:17:00 Test Item Value Reference Range Interpretation Comments WHITE BLOOD CELL (test code = WBC) 9.3 K/mm3 6.5-12.3 N RED BLOOD CELL (test code = RBC) 4.10 M/mm3 3.51-4.69 N HEMOGLOBIN (test code = HGB) 12.4 g/dL 10.1-13.8 N HEMATOCRIT (test code = HCT) 36.5 % 32.5-41.8 N MEAN CELL VOLUME (test code = MCV) 89.0 fL 84.6-96.6 N MEAN CELL HGB (test code = MCH) 30.2 pg 27.3-33.9 N MEAN CELL HGB CONCETRATION (test 34.0 gm/dL 32.0-34.2 N code = MCHC) RED CELL DISTRIBUTION WIDTH (test 12.8 % 12.2-16.3 N code = RDW) PLATELET COUNT (test code = PLT) 279 K/mm3 134-363 N MEAN PLATELET VOLUME (test code = 10.0 fL 9.2-12.7 N MPV) NEUTROPHIL % (test code = NT%) 71.4 % 57.9-77.3 N LYMPHOCYTE % (test code = LY%) 19.3 % 14.5-29.7 N MONOCYTE % (test code = MO%) 7.1 % 3.6-10.2 N EOSINOPHIL % (test code = EO%) 1.2 % 0.0-3.0 N BASOPHIL % (test code = BA%) 0.4 % 0.1-0.9 N NEUTROPHIL # (test code = NT#) 6.6 K/mm3 LYMPHOCYTE # (test code = LY#) 1.8 K/mm3 MONOCYTE # (test code = MO#) 0.7 K/mm3 EOSINOPHIL # (test code = EO#) 0.11 K/mm3 BASOPHIL # (test code = BA#) 0.0 K/mm3 RBC MORPHOLOGY REQUIRED (test code NORMAL NORMAL = RBCM) PLATELET MORPHOLOGY REQUIRED (test NORMAL NORMAL code = PLTMR) RUPTURE OF [id number] 12:23:00 Test Item Value Reference Range Interpretation Comments RUPTURE OF MEMBRANES (test code = RUPTURED ROM) Urinalysis macro (dipstick) panel - [id number] 13:27:00 Test Item Value Reference Range Interpretation Comments Leukocytes (test code = Leukocytes) Negative Nitrite (test code = Nitrite) negative Protein (test code = Protein) Trace Glucose (test code = Glucose) Negative [facility]) panel - [id number] 09:58:00 Test Item Value Reference Range Interpretation Comments Leukocytes (test code = Leukocytes) Negative Nitrite (test code = Nitrite) negative Protein (test code = Protein) Negative Glucose (test code = Glucose) Negative [facility] macro (dipstick) panel - [id number] 09:58:00 Test Item Value Reference Range Interpretation Comments Leukocytes (test code = Leukocytes) Negative Nitrite (test code = Nitrite) negative Protein (test code = Protein) Negative Glucose (test code = Glucose) Negative [facility] MedicalRUPTURE OF [id number] 15:32:00 Test Item Value Reference Range Interpretation Comments RUPTURE OF MEMBRANES (test code NON-RUPTURED = ROM) - US [id number] 00:00:00 [facility] : 1990 Sex: F Patient Name: HIEU LOPEZ Unit No: [id number] EXAMS: CPT CODE: [id number] US LTD 96733 PROCEDURE INFORMATION: Exam: US , Limited Exam date and time: 12/31/2021 1:46 PM Age: 31 years old Clinical indication: Lmp or gestational age (in weeks): 38; Antepartum complications; Other: Low fluid; LABS AND CLINICAL REPORTS: Gestational age (Established): 38 w 0 d Estimated due date (Established): 01/14/2022 TECHNIQUE: Imaging protocol: Real- time ultrasound of the maternal uterus with image documentation. Exam focused on the clinical indication. COMPARISON: No relevant prior studies available. FINDINGS: JAVIER (known): 01/14/2022. GA (known JAVIER): 38 weeks 0 days . Presentation: Vertex. Heart rate: 150 bpm. Placenta: Anterior, grade 2/3 placenta with no evidence of placenta previa nor retroplacental fluid collection. Amniotic fluid: Amniotic fluid index equals 9.2 cm. Cervix: Not well seen Other findings: Amniotic fluid index: MATY is 9.2 cm. heart rate: 150 bpm IMPRESSION: Live intrauterine gestation as described. at 1418 Reported and signed by: Moris Escobar MD CC: Jazzy Dominguez MD Technologist: Mayra Cooper RDMS Probe: Trnscrbd D/ (1418) GCD.CPS Orig Print D/T: S: 12/31/2021 (1418) [facility] NAME: HIEU LOPEZ Radiology Department PHYS: MARICELBurton - Jazzy Dominguez [address] : 1990 AGE: 31 SEX: F [place] [address] LOC: JacMAGALI PHONE #: [phone] EXAM DATE: 12/31/2021 STATUS: REG ER FAX #: [phone] RAD NO: Page 1 Signed Report Patient Name: HIEU LOPEZ Unit No: [id number] EXAMS: CPT CODE: [id number] LTD 73425 (Continued) [facility] NAME: HIEU LOPEZN Radiology Department PHYS: Jazzy Salvador [address] : 1990 AGE: 31 SEX: F [place] [address] LOC: JacMAGALI PHONE #: [phone] EXAM DATE: 12/31/2021 STATUS: REG ER FAX #: [phone] RAD NO: Page 2 Signed ReportUrinalysis macro (dipstick) panel - [id number] 16:19:00 Test Item Value Reference Range Interpretation Comments Leukocytes (test code = Leukocytes) Negative Nitrite (test code = Nitrite) negative Protein (test code = Protein) Trace Glucose (test code = Glucose) Negative [facility] MedicalUrinalysis macro (dipstick) panel - [id number] 16:19:00 Test Item Value Reference Range Interpretation Comments Leukocytes (test code = Leukocytes) Negative Nitrite (test code = Nitrite) negative Protein (test code = Protein) Trace Glucose (test code = Glucose) Negative [facility] MedicalUrinalysis macro (dipstick) panel - [id number] 16:19:00 Test Item Value Reference Range Interpretation Comments Leukocytes (test code = Leukocytes) Negative Nitrite (test code = Nitrite) negative Protein (test code = Protein) Trace Glucose (test code = Glucose) Negative [facility] MedicalUrinalysis macro (dipstick) panel - [id number] 16:19:00 Test Item Value Reference Range Interpretation Comments Leukocytes (test code = Leukocytes) Negative Nitrite (test code = Nitrite) negative Protein (test code = Protein) Trace Glucose (test code = Glucose) Negative [facility] MedicalStreptococcus agalactiae [Presence] in Specimen by Organism specific [id number] 00:00:00 Test Item Value Reference Range Interpretation Comments culture, genital (strep B) (test negative negative code = culture, genital (strep B)) [facility] MedicalStreptococcus agalactiae [Presence] in Specimen by Organism specific [id number] 00:00:00 Test Item Value Reference Range Interpretation Comments culture, genital (strep B) (test negative negative code = culture, genital (strep B)) [facility] MedicalStreptococcus agalactiae [Presence] in Specimen by Organism specific [id number] 00:00:00 Test Item Value Reference Range Interpretation Comments culture, genital (strep B) (test negative negative code = culture, genital (strep B)) [facility] MedicalStreptococcus agalactiae [Presence] in Specimen by Organism specific [id number] 00:00:00 Test Item Value Reference Range Interpretation Comments culture, genital (strep B) (test negative negative code = culture, genital (strep B)) [facility] MedicalUrinalysis macro (dipstick) panel - [id number] 15:55:00 Test Item Value Reference Range Interpretation Comments Leukocytes (test code = Leukocytes) Negative Nitrite (test code = Nitrite) negative Protein (test code = Protein) Trace Glucose (test code = Glucose) Negative [facility] MedicalUrinalysis macro (dipstick) panel - [id number] 15:55:00 Test Item Value Reference Range Interpretation Comments Leukocytes (test code = Leukocytes) Negative Nitrite (test code = Nitrite) negative Protein (test code = Protein) Trace Glucose (test code = Glucose) Negative [facility] MedicalUrinalysis macro (dipstick) panel - [id number] 15:55:00 Test Item Value Reference Range Interpretation Comments Leukocytes (test code = Leukocytes) Negative Nitrite (test code = Nitrite) negative Protein (test code = Protein) Trace Glucose (test code = Glucose) Negative [facility] MedicalReagin Ab [Presence] in Serum by [id number] 00:00:00 Test Item Value Reference Range Interpretation Comments RPR (test code = RPR) non-reactive non-reactive [facility] MedicalHIV 1+2 Ab+HIV1 p24 Ag [Presence] in Serum or Plasma by [id number] 00:00:00 Test Item Value Reference Range Interpretation Comments HIV Ag/Ab (test code = HIV non-reactive non-reactive Ag/Ab) [facility] MedicalReagin Ab [Presence] in Serum by [id number] 00:00:00 Test Item Value Reference Range Interpretation Comments RPR (test code = RPR) non-reactive non-reactive [facility] MedicalHIV 1+2 Ab+HIV1 p24 Ag [Presence] in Serum or Plasma by [id number] 00:00:00 Test Item Value Reference Range Interpretation Comments HIV Ag/Ab (test code = HIV non-reactive non-reactive Ag/Ab) [facility] MedicalReagin Ab [Presence] in Serum by [id number] 00:00:00 Test Item Value Reference Range Interpretation Comments RPR (test code = RPR) non-reactive non-reactive [facility] MedicalHIV 1+2 Ab+HIV1 p24 Ag [Presence] in Serum or Plasma by [id number] 00:00:00 Test Item Value Reference Range Interpretation Comments HIV Ag/Ab (test code = HIV non-reactive non-reactive Ag/Ab) [facility] MedicalChlamydia trachomatis+Neisseria gonorrhoeae rRNA [Presence] in Urine by [id number] 00:00:00 Test Item Value Reference Range Interpretation Comments aptima combo 2 urine (CT) (test code = CT neg negative aptima combo 2 urine (CT)) aptima combo 2 urine (GC) (test code = GC neg negative aptima combo 2 urine (GC)) [facility] MedicalChlamydia trachomatis+Neisseria gonorrhoeae rRNA [Presence] in Urine by [id number] 00:00:00 Test Item Value Reference Range Interpretation Comments aptima combo 2 urine (CT) (test code = CT neg negative aptima combo 2 urine (CT)) aptima combo 2 urine (GC) (test code = GC neg negative aptima combo 2 urine (GC)) [facility] MedicalChlamydia trachomatis+Neisseria gonorrhoeae rRNA [Presence] in Urine by [id number] 00:00:00 Test Item Value Reference Range Interpretation Comments aptima combo 2 urine (CT) (test code = CT neg negative aptima combo 2 urine (CT)) aptima combo 2 urine (GC) (test code = GC neg negative aptima combo 2 urine (GC)) [facility] MedicalChlamydia trachomatis+Neisseria gonorrhoeae rRNA [Presence] in Urine by [id number] 00:00:00 Test Item Value Reference Range Interpretation Comments aptima combo 2 urine (CT) (test code = CT neg negative aptima combo 2 urine (CT)) aptima combo 2 urine (GC) (test code = GC neg negative aptima combo 2 urine (GC)) [facility] MedicalCBC panel - Blood by Automated [id number] 00:00:00 Test Item Value Reference Range Interpretation Comments WBC (test code = WBC) 9.1 10 3.7-12.0 RBC (test code = RBC) 3.60 10 3.60-5.50 L HGB (test code = HGB) 11.0 g/dL 11.5-15.6 L HCT (test code = HCT) 32.0 % 34.5-46.5 L MCV (test code = MCV) 88.9 um 80.0-102.0 MCH (test code = MCH) 30.6 pg 25.0-34.1 MCHC (test code = MCHC) 34.5 g/dL 29.0-35.0 RDW (test code = RDW) 13.1 % 10.9-16.9 plt (test code = plt) 284 10 136-392 MPV (test code = MPV) 7.4 um 7.4-11.1 L gran % (test code = gran %) 68.3 % 36.0-78.0 lymph % (test code = lymph %) 20.4 % 12.0-48.0 mono % (test code = mono %) 8.0 % 0.0-13.0 eos % (test code = eos %) 3 % 0-8 baso % (test code = baso %) 1 % 0-2 gran # (test code = gran #) 6.2 10 1.2-6.8 lymph # (test code = lymph #) 1.9 10 1.2-3.2 mono # (test code = mono #) 0.7 10 0.3-0.8 eos # (test code = eos #) 0.3 10 0.0-0.2 H baso # (test code = baso #) 0.0 10 0.0-0.2 [facility] panel - Blood by Automated [id number] 00:00:00 Test Item Value Reference Range Interpretation Comments WBC (test code = WBC) 9.1 10 3.7-12.0 RBC (test code = RBC) 3.60 10 3.60-5.50 L HGB (test code = HGB) 11.0 g/dL 11.5-15.6 L HCT (test code = HCT) 32.0 % 34.5-46.5 L MCV (test code = MCV) 88.9 um 80.0-102.0 MCH (test code = MCH) 30.6 pg 25.0-34.1 MCHC (test code = MCHC) 34.5 g/dL 29.0-35.0 RDW (test code = RDW) 13.1 % 10.9-16.9 plt (test code = plt) 284 10 136-392 MPV (test code = MPV) 7.4 um 7.4-11.1 L gran % (test code = gran %) 68.3 % 36.0-78.0 lymph % (test code = lymph %) 20.4 % 12.0-48.0 mono % (test code = mono %) 8.0 % 0.0-13.0 eos % (test code = eos %) 3 % 0-8 baso % (test code = baso %) 1 % 0-2 gran # (test code = gran #) 6.2 10 1.2-6.8 lymph # (test code = lymph #) 1.9 10 1.2-3.2 mono # (test code = mono #) 0.7 10 0.3-0.8 eos # (test code = eos #) 0.3 10 0.0-0.2 H baso # (test code = baso #) 0.0 10 0.0-0.2 [facility] panel - Blood by Automated [id number] 00:00:00 Test Item Value Reference Range Interpretation Comments WBC (test code = WBC) 9.1 10 3.7-12.0 RBC (test code = RBC) 3.60 10 3.60-5.50 L HGB (test code = HGB) 11.0 g/dL 11.5-15.6 L HCT (test code = HCT) 32.0 % 34.5-46.5 L MCV (test code = MCV) 88.9 um 80.0-102.0 MCH (test code = MCH) 30.6 pg 25.0-34.1 MCHC (test code = MCHC) 34.5 g/dL 29.0-35.0 RDW (test code = RDW) 13.1 % 10.9-16.9 plt (test code = plt) 284 10 136-392 MPV (test code = MPV) 7.4 um 7.4-11.1 L gran % (test code = gran %) 68.3 % 36.0-78.0 lymph % (test code = lymph %) 20.4 % 12.0-48.0 mono % (test code = mono %) 8.0 % 0.0-13.0 eos % (test code = eos %) 3 % 0-8 baso % (test code = baso %) 1 % 0-2 gran # (test code = gran #) 6.2 10 1.2-6.8 lymph # (test code = lymph #) 1.9 10 1.2-3.2 mono # (test code = mono #) 0.7 10 0.3-0.8 eos # (test code = eos #) 0.3 10 0.0-0.2 H baso # (test code = baso #) 0.0 10 0.0-0.2 [facility] panel - Blood by Automated [id number] 00:00:00 Test Item Value Reference Range Interpretation Comments WBC (test code = WBC) 9.1 10 3.7-12.0 RBC (test code = RBC) 3.60 10 3.60-5.50 L HGB (test code = HGB) 11.0 g/dL 11.5-15.6 L HCT (test code = HCT) 32.0 % 34.5-46.5 L MCV (test code = MCV) 88.9 um 80.0-102.0 MCH (test code = MCH) 30.6 pg 25.0-34.1 MCHC (test code = MCHC) 34.5 g/dL 29.0-35.0 RDW (test code = RDW) 13.1 % 10.9-16.9 plt (test code = plt) 284 10 136-392 MPV (test code = MPV) 7.4 um 7.4-11.1 L gran % (test code = gran %) 68.3 % 36.0-78.0 lymph % (test code = lymph %) 20.4 % 12.0-48.0 mono % (test code = mono %) 8.0 % 0.0-13.0 eos % (test code = eos %) 3 % 0-8 baso % (test code = baso %) 1 % 0-2 gran # (test code = gran #) 6.2 10 1.2-6.8 lymph # (test code = lymph #) 1.9 10 1.2-3.2 mono # (test code = mono #) 0.7 10 0.3-0.8 eos # (test code = eos #) 0.3 10 0.0-0.2 H baso # (test code = baso #) 0.0 10 0.0-0.2 [facility] MedicalUrinalysis macro (dipstick) panel - [id number] 14:51:00 Test Item Value Reference Range Interpretation Comments Leukocytes (test code = Leukocytes) Negative Nitrite (test code = Nitrite) negative Protein (test code = Protein) Negative Glucose (test code = Glucose) Negative [facility] MedicalUrinalysis macro (dipstick) panel - [id number] 14:51:00 Test Item Value Reference Range Interpretation Comments Leukocytes (test code = Leukocytes) Negative Nitrite (test code = Nitrite) negative Protein (test code = Protein) Negative Glucose (test code = Glucose) Negative [facility] MedicalUrinalysis macro (dipstick) panel - [id number] 14:51:00 Test Item Value Reference Range Interpretation Comments Leukocytes (test code = Leukocytes) Negative Nitrite (test code = Nitrite) negative Protein (test code = Protein) Negative Glucose (test code = Glucose) Negative [facility] MedicalUrinalysis macro (dipstick) panel - [id number] 10:42:38 Test Item Value Reference Range Interpretation Comments Protein (test code = Protein) Negative Glucose (test code = Glucose) Negative [facility] MedicalUrinalysis macro (dipstick) panel - [id number] 10:42:38 Test Item Value Reference Range Interpretation Comments Protein (test code = Protein) Negative Glucose (test code = Glucose) Negative [facility] MedicalUrinalysis macro (dipstick) panel - [id number] 10:42:38 Test Item Value Reference Range Interpretation Comments Protein (test code = Protein) Negative Glucose (test code = Glucose) Negative [facility] MedicalUrinalysis macro (dipstick) panel - [id number] 10:42:38 Test Item Value Reference Range Interpretation Comments Protein (test code = Protein) Negative Glucose (test code = Glucose) Negative [facility] MedicalUrinalysis macro (dipstick) panel - [id number] 14:19:00 Test Item Value Reference Range Interpretation Comments Leukocytes (test code = Leukocytes) Negative Nitrite (test code = Nitrite) negative Protein (test code = Protein) Negative Glucose (test code = Glucose) Negative [facility] MedicalUrinalysis macro (dipstick) panel - [id number] 12:33:00 Test Item Value Reference Range Interpretation Comments Leukocytes (test code = Leukocytes) Negative Nitrite (test code = Nitrite) negative Protein (test code = Protein) Negative Glucose (test code = Glucose) Negative [facility] MedicalGlucose [Mass/volume] in Serum or Plasma --1 hour post dose [id number] 00:00:00 Test Item Value Reference Range Interpretation Comments g.T.T. 1HR(50) (test code = g.T.T. 133 mg/dL <140 1HR(50)) [facility] MedicalGlucose [Mass/volume] in Serum or Plasma --1 hour post dose [id number] 00:00:00 Test Item Value Reference Range Interpretation Comments g.T.T. 1HR(50) (test code = g.T.T. 133 mg/dL <140 1HR(50)) [facility]CBC panel - Blood by Automated [id number] 00:00:00 Test Item Value Reference Range Interpretation Comments WBC (test code = WBC) 8.0 10 3.7-12.0 RBC (test code = RBC) 3.91 10 3.60-5.50 HGB (test code = HGB) 12.1 g/dL 11.5-15.6 HCT (test code = HCT) 35.2 % 34.5-46.5 MCV (test code = MCV) 90.2 um 80.0-102.0 MCH (test code = MCH) 31.0 pg 25.0-34.1 MCHC (test code = MCHC) 34.3 g/dL 29.0-35.0 RDW (test code = RDW) 13.1 % 10.9-16.9 plt (test code = plt) 294 10 136-392 MPV (test code = MPV) 6.9 um 7.4-11.1 L gran % (test code = gran %) 69.3 % 36.0-78.0 lymph % (test code = lymph %) 22.2 % 12.0-48.0 mono % (test code = mono %) 6.5 % 0.0-13.0 eos % (test code = eos %) 2 % 0-8 baso % (test code = baso %) 0 % 0-2 gran # (test code = gran #) 5.5 10 1.2-6.8 lymph # (test code = lymph #) 1.8 10 1.2-3.2 mono # (test code = mono #) 0.5 10 0.3-0.8 eos # (test code = eos #) 0.1 10 0.0-0.2 baso # (test code = baso #) 0.0 10 0.0-0.2 [facility] panel - Blood by Automated [id number] 00:00:00 Test Item Value Reference Range Interpretation Comments WBC (test code = WBC) 8.0 10 3.7-12.0 RBC (test code = RBC) 3.91 10 3.60-5.50 HGB (test code = HGB) 12.1 g/dL 11.5-15.6 HCT (test code = HCT) 35.2 % 34.5-46.5 MCV (test code = MCV) 90.2 um 80.0-102.0 MCH (test code = MCH) 31.0 pg 25.0-34.1 MCHC (test code = MCHC) 34.3 g/dL 29.0-35.0 RDW (test code = RDW) 13.1 % 10.9-16.9 plt (test code = plt) 294 10 136-392 MPV (test code = MPV) 6.9 um 7.4-11.1 L gran % (test code = gran %) 69.3 % 36.0-78.0 lymph % (test code = lymph %) 22.2 % 12.0-48.0 mono % (test code = mono %) 6.5 % 0.0-13.0 eos % (test code = eos %) 2 % 0-8 baso % (test code = baso %) 0 % 0-2 gran # (test code = gran #) 5.5 10 1.2-6.8 lymph # (test code = lymph #) 1.8 10 1.2-3.2 mono # (test code = mono #) 0.5 10 0.3-0.8 eos # (test code = eos #) 0.1 10 0.0-0.2 baso # (test code = baso #) 0.0 10 0.0-0.2 [facility] MedicalUrinalysis macro (dipstick) panel - [id number] 11:12:00 Test Item Value Reference Range Interpretation Comments Leukocytes (test code = Leukocytes) Negative Nitrite (test code = Nitrite) negative Protein (test code = Protein) Negative Glucose (test code = Glucose) Negative [facility] 1- aptima [id number] 00:00:00 Test Item Value Reference Range Interpretation Comments hsv 1- aptima tube (test code = hsv detected not detected A 1- aptima tube) [facility] 2- aptima [id number] 00:00:00 Test Item Value Reference Range Interpretation Comments hsv 2- aptima tube (test code = not detected not detected hsv 2- aptima tube) [facility] 1- aptima [id number] 00:00:00 Test Item Value Reference Range Interpretation Comments hsv 1- aptima tube (test code = hsv detected not detected A 1- aptima tube) [facility] 2- aptima [id number] 00:00:00 Test Item Value Reference Range Interpretation Comments hsv 2- aptima tube (test code = not detected not detected hsv 2- aptima tube) [facility] [Mass/volume] in Serum or [id number] 00:00:00 Test Item Value Reference Range Interpretation Comments maternal serum AFP screen (test code negative = maternal serum AFP screen) [facility] MedicalUrinalysis macro (dipstick) panel - [id number] 09:11:00 Test Item Value Reference Range Interpretation Comments Leukocytes (test code = Leukocytes) Negative Nitrite (test code = Nitrite) negative Protein (test code = Protein) Trace Glucose (test code = Glucose) Negative [facility] MedicalUrinalysis macro (dipstick) panel - [id number] 09:11:00 Test Item Value Reference Range Interpretation Comments Leukocytes (test code = Leukocytes) Negative Nitrite (test code = Nitrite) negative Protein (test code = Protein) Trace Glucose (test code = Glucose) Negative [facility] MedicalUrinalysis macro (dipstick) panel - [id number] 10:27:00 Test Item Value Reference Range Interpretation Comments Leukocytes (test code = Leukocytes) Negative Nitrite (test code = Nitrite) negative Protein (test code = Protein) Negative Glucose (test code = Glucose) Negative [facility] Medicalpap, LB + HR [id number] 00:00:00 Test Item Value Reference Range Interpretation Comments Pap, liquid-based (test code = Pap, nilm nilm liquid-based) [facility] Medicalpap, LB + HR [id number] 00:00:00 Test Item Value Reference Range Interpretation Comments Pap, liquid-based (test code = Pap, nilm nilm liquid-based) [facility] MedicalChlamydia trachomatis and Neisseria gonorrhoeae rRNA panel - Specimen by JAVED with probe [id number] 00:00:00 Test Item Value Reference Range Interpretation Comments aptima combo 2 swab (CT) (test code = CT neg negative aptima combo 2 swab (CT)) aptima combo 2 swab (GC) (test code = GC neg negative aptima combo 2 swab (GC)) [facility] MedicalChlamydia trachomatis and Neisseria gonorrhoeae rRNA panel - Specimen by JAVED with probe [id number] 00:00:00 Test Item Value Reference Range Interpretation Comments aptima combo 2 swab (CT) (test code = CT neg negative aptima combo 2 swab (CT)) aptima combo 2 swab (GC) (test code = GC neg negative aptima combo 2 swab (GC)) [facility] MedicalHemoglobin electrophoresis panel in [id number] 00:00:00 Test Item Value Reference Range Interpretation Comments Hb A (test code = 97.3 % 96.7-97.8 Hb A) Hb A2 (test code = 2.7 % 2.2-3.2 Hb A2) Hb C (test code = not detected not detected Hb C) Hb F (test code = not detected See_Comment [Automate d message] Hb F) The system P2i generated this result transmitted ref erence range: <or=0.5. The reference range was not used to interpr et this result as normal/abnormal . Hb other (test not detected not detected code = Hb other) Hb S (test code = not detected not detected Hb S) [facility] Medicalimm/non-imm varicella IgG Ab.2021-07-04 00:00:00 Test Item Value Reference Range Interpretation Comments varicella zos. (IgG) (test code = immune immune varicella zos. (IgG)) [facility] MedicalBacteria identified in Urine by [id number] 00:00:00 Test Item Value Reference Range Interpretation Comments bacteria, urine (test code = none none-few bacteria, urine) blood, urine (test code = negative negative blood, urine) bilirubin, urine (test code = negative negative bilirubin, urine) cast, granular, ur (test code none seen 0-1 = cast, granular, ur) cast, hyaline, urine (test 0-4 0-4 code = cast, hyaline, urine) cast, RBC, urine (test code = none seen 0-1 cast, RBC, urine) character (test code = turbid clear A character) color (test code = color) yellow yellow, straw, keenan crystal amt. urine (test code none none = crystal amt. urine) crystals urine (test code = none none crystals urine) culture, urine (test code = no growth no growth culture, urine) epithelial cells, ur (test few none-few code = epithelial cells, ur) glucose, urine (test code = negative negative glucose, urine) ketone, urine (test code = trace negative A ketone, urine) leukocyte esterase (test code negative negative = leukocyte esterase) nitrites urine (test code = negative negative nitrites urine) pH urine (test code = pH 5.5 5.0-8.0 urine) protein, urine (test code = negative negative protein, urine) RBC, urine (test code = RBC, none seen none seen urine) specific gravity ur (test code 1.030 1.003-1.030 = specific gravity ur) urobilinogen urine (test code 0.2 mg/dL 0.2-1.0 = urobilinogen urine) WBC, urine (test code = WBC, 0-4 0-4 urine) [facility] panel - Serum and [id number] 00:00:00 Test Item Value Reference Range Interpretation Comments WBC (test code = 7.87 x10(3)/uL 4.00-10.10 WBC) RBC (test code = 4.19 x10(6)/uL 3.58-5.19 RBC) HGB (test code = 13.1 g/dL 11.0-15.5 HGB) HCT (test code = 37.4 % 31.5-44.8 HCT) MCV (test code = 89.3 fL 78.0-98.0 MCV) MCH (test code = 31.3 pg 25.2-32.6 MCH) MCHC (test code = 35.0 g/dL 31.0-34.7 H MCHC) RDW (test code = 12.7 % 12.0-15.5 RDW) platelet count (test 301 x10(3)/uL 140-425 code = platelet count) lymphs (test code = 24.1 % 13.7-50.9 lymphs) monos (test code = 6.2 % 3.0-11.9 monos) eos (test code = 1.7 % 0.0-5.0 eos) basos (test code = 0.5 % 0.0-1.0 basos) MPV (test code = 10.3 fL 8.6-12.1 MPV) polys (test code = 67.1 % 37.1-78.1 polys) RPR (test code = non-reactive non-reactive RPR) immature 0.4 % 0.0-1.0 granulocytes (test code = immature granulocytes) ABO/Rh blood type O pos (test code = ABO/Rh blood type) antibody screen negative negative (test code = antibody screen) hep. B surf. Ag non-reactive non-reactive (test code = hep. B surf. Ag) rubella,IgG (test 179.9 [IU]/mL See_Comment [Automat ed code = rubella,IgG) message] The system which generated this result transmitted reference range : immune >9.9. Th e reference range was not used to interpret this result as normal/abnormal . [facility] in [id number] 00:00:00 Test Item Value Reference Range Interpretation Comments Hb A (test code = 97.3 % 96.7-97.8 Hb A) Hb A2 (test code = 2.7 % 2.2-3.2 Hb A2) Hb C (test code = not detected not detected Hb C) Hb F (test code = not detected See_Comment [Automate d message] Hb F) The system P2i generated this result transmitted ref erence range: <or=0.5. The reference range was not used to interpr et this result as normal/abnormal . Hb other (test not detected not detected code = Hb other) Hb S (test code = not detected not detected Hb S) [facility].2021-07-04 00:00:00 Test Item Value Reference Range Interpretation Comments varicella zos. (IgG) (test code = immune immune varicella zos. (IgG)) [facility] in [facility] by [id number] 00:00:00 Test Item Value Reference Range Interpretation Comments bacteria, urine (test code = none none-few bacteria, urine) blood, urine (test code = negative negative blood, urine) bilirubin, urine (test code = negative negative bilirubin, urine) cast, granular, ur (test code none seen 0-1 = cast, granular, ur) cast, hyaline, urine (test 0-4 0-4 code = cast, hyaline, urine) cast, RBC, urine (test code = none seen 0-1 cast, RBC, urine) character (test code = turbid clear A character) color (test code = color) yellow yellow, straw, keenan crystal amt. urine (test code none none = crystal amt. urine) crystals urine (test code = none none crystals urine) culture, urine (test code = no growth no growth culture, urine) epithelial cells, ur (test few none-few code = epithelial cells, ur) glucose, urine (test code = negative negative glucose, urine) ketone, urine (test code = trace negative A ketone, urine) leukocyte esterase (test code negative negative = leukocyte esterase) nitrites urine (test code = negative negative nitrites urine) pH urine (test code = pH 5.5 5.0-8.0 urine) protein, urine (test code = negative negative protein, urine) RBC, urine (test code = RBC, none seen none seen urine) specific gravity ur (test code 1.030 1.003-1.030 = specific gravity ur) urobilinogen urine (test code 0.2 mg/dL 0.2-1.0 = urobilinogen urine) WBC, urine (test code = WBC, 0-4 0-4 urine) [facility] and [id number] 00:00:00 Test Item Value Reference Range Interpretation Comments WBC (test code = 7.87 x10(3)/uL 4.00-10.10 WBC) RBC (test code = 4.19 x10(6)/uL 3.58-5.19 RBC) HGB (test code = 13.1 g/dL 11.0-15.5 HGB) HCT (test code = 37.4 % 31.5-44.8 HCT) MCV (test code = 89.3 fL 78.0-98.0 MCV) MCH (test code = 31.3 pg 25.2-32.6 MCH) MCHC (test code = 35.0 g/dL 31.0-34.7 H MCHC) RDW (test code = 12.7 % 12.0-15.5 RDW) platelet count (test 301 x10(3)/uL 140-425 code = platelet count) lymphs (test code = 24.1 % 13.7-50.9 lymphs) monos (test code = 6.2 % 3.0-11.9 monos) eos (test code = 1.7 % 0.0-5.0 eos) basos (test code = 0.5 % 0.0-1.0 basos) MPV (test code = 10.3 fL 8.6-12.1 MPV) polys (test code = 67.1 % 37.1-78.1 polys) RPR (test code = non-reactive non-reactive RPR) immature 0.4 % 0.0-1.0 granulocytes (test code = immature granulocytes) ABO/Rh blood type O pos (test code = ABO/Rh blood type) antibody screen negative negative (test code = antibody screen) hep. B surf. Ag non-reactive non-reactive (test code = hep. B surf. Ag) rubella,IgG (test 179.9 [IU]/mL See_Comment [Automat ed code = rubella,IgG) message] The system which generated this result transmitted reference range : immune >9.9. Th e reference range was not used to interpret this result as normal/abnormal . [facility] panel in [id number] 00:00:00 Test Item Value Reference Range Interpretation Comments Hb A (test code = 97.3 % 96.7-97.8 Hb A) Hb A2 (test code = 2.7 % 2.2-3.2 Hb A2) Hb C (test code = not detected not detected Hb C) Hb F (test code = not detected See_Comment [Automate d message] Hb F) The system P2i generated this result transmitted ref erence range: <or=0.5. The reference range was not used to interpr et this result as normal/abnormal . Hb other (test not detected not detected code = Hb other) Hb S (test code = not detected not detected Hb S) [facility] varicella IgG Ab.2021-07-04 00:00:00 Test Item Value Reference Range Interpretation Comments varicella zos. (IgG) (test code = immune immune varicella zos. (IgG)) [facility]acteria identified in Urine by [id number] 00:00:00 Test Item Value Reference Range Interpretation Comments bacteria, urine (test code = none none-few bacteria, urine) blood, urine (test code = negative negative blood, urine) bilirubin, urine (test code = negative negative bilirubin, urine) cast, granular, ur (test code none seen 0-1 = cast, granular, ur) cast, hyaline, urine (test 0-4 0-4 code = cast, hyaline, urine) cast, RBC, urine (test code = none seen 0-1 cast, RBC, urine) character (test code = turbid clear A character) color (test code = color) yellow yellow, straw, keenan crystal amt. urine (test code none none = crystal amt. urine) crystals urine (test code = none none crystals urine) culture, urine (test code = no growth no growth culture, urine) epithelial cells, ur (test few none-few code = epithelial cells, ur) glucose, urine (test code = negative negative glucose, urine) ketone, urine (test code = trace negative A ketone, urine) leukocyte esterase (test code negative negative = leukocyte esterase) nitrites urine (test code = negative negative nitrites urine) pH urine (test code = pH 5.5 5.0-8.0 urine) protein, urine (test code = negative negative protein, urine) RBC, urine (test code = RBC, none seen none seen urine) specific gravity ur (test code 1.030 1.003-1.030 = specific gravity ur) urobilinogen urine (test code 0.2 mg/dL 0.2-1.0 = urobilinogen urine) WBC, urine (test code = WBC, 0-4 0-4 urine) [place] [id number] panel - Serum and [id number] 00:00:00 Test Item Value Reference Range Interpretation Comments WBC (test code = 7.87 x10(3)/uL 4.00-10.10 WBC) RBC (test code = 4.19 x10(6)/uL 3.58-5.19 RBC) HGB (test code = 13.1 g/dL 11.0-15.5 HGB) HCT (test code = 37.4 % 31.5-44.8 HCT) MCV (test code = 89.3 fL 78.0-98.0 MCV) MCH (test code = 31.3 pg 25.2-32.6 MCH) MCHC (test code = 35.0 g/dL 31.0-34.7 H MCHC) RDW (test code = 12.7 % 12.0-15.5 RDW) platelet count (test 301 x10(3)/uL 140-425 code = platelet count) lymphs (test code = 24.1 % 13.7-50.9 lymphs) monos (test code = 6.2 % 3.0-11.9 monos) eos (test code = 1.7 % 0.0-5.0 eos) basos (test code = 0.5 % 0.0-1.0 basos) MPV (test code = 10.3 fL 8.6-12.1 MPV) polys (test code = 67.1 % 37.1-78.1 polys) RPR (test code = non-reactive non-reactive RPR) immature 0.4 % 0.0-1.0 granulocytes (test code = immature granulocytes) ABO/Rh blood type O pos (test code = ABO/Rh blood type) antibody screen negative negative (test code = antibody screen) hep. B surf. Ag non-reactive non-reactive (test code = hep. B surf. Ag) rubella,IgG (test 179.9 [IU]/mL See_Comment [Automat ed code = rubella,IgG) message] The system which generated this result transmitted reference range : immune >9.9. Th e reference range was not used to interpret this result as normal/abnormal . [facility]/Hemoglobin.total in [id number] 00:00:00 Test Item Value Reference Range Interpretation Comments Hemoglobin A1c/Hemoglobin.total in 4.9 % 4.0-5.6 Blood (test code = 4548-4) [facility] 2000 [facility] - Serum or [id number] 00:00:00 Test Item Value Reference Range Interpretation Comments sodium (test code = 136 mmol/L 136-145 sodium) potassium (test code = 4.0 mmol/L 3.5-5.5 potassium) chloride (test code = 102 mmol/L 98-107 chloride) CO2 (test code = CO2) 22 mmol/ L 23-27 L glucose (test code = 97 mg/dL 70-99 glucose) BUN (test code = BUN) 8 mg/dL 6-20 creatinine (test code = 0.6 mg/dL 0.5-0.9 creatinine) calcium (test code = 9.3 mg/dL 8.8-10.6 calcium) total protein (test code = 6.5 g/dL 6.0-8.3 total protein) albumin (test code = 3.8 g/dL 3.5-5.2 albumin) total bilirubin (test code 0.2 mg/dL 0.0-1.2 = total bilirubin) alkaline phosphatase (test 43 U/L 44-147 L code = alkaline phosphatase) AST (SGOT) (test code = 14 U/L 0-32 AST (SGOT)) ALT (SGPT) (test code = 9 U/L 0-33 ALT (SGPT)) globulin (test code = 2.7 g/dL 1.7-3.7 globulin) A/G ratio (test code = A/G 1.4 calc. 1.1-2.9 ratio) BUN/creatinine ratio (test 13.3 calc 10.0-28.0 code = BUN/creatinine ratio) eGFR non- 126.519 >60.000 (test code = eGFR mL/min/1.73A? non-) eGFR 151.823 >60.000 (test code = eGFR mL/min/1.73A? serbian) [facility] MedicalHemoglobin A1c/Hemoglobin.total in [id number] 00:00:00 Test Item Value Reference Range Interpretation Comments Hemoglobin A1c/Hemoglobin.total in 4.9 % 4.0-5.6 Blood (test code = 4548-4) [facility] - Serum or [id number] 00:00:00 Test Item Value Reference Range Interpretation Comments sodium (test code = 136 mmol/L 136-145 sodium) potassium (test code = 4.0 mmol/L 3.5-5.5 potassium) chloride (test code = 102 mmol/L 98-107 chloride) CO2 (test code = CO2) 22 mmol/ L 23-27 L glucose (test code = 97 mg/dL 70-99 glucose) BUN (test code = BUN) 8 mg/dL 6-20 creatinine (test code = 0.6 mg/dL 0.5-0.9 creatinine) calcium (test code = 9.3 mg/dL 8.8-10.6 calcium) total protein (test code = 6.5 g/dL 6.0-8.3 total protein) albumin (test code = 3.8 g/dL 3.5-5.2 albumin) total bilirubin (test code 0.2 mg/dL 0.0-1.2 = total bilirubin) alkaline phosphatase (test 43 U/L 44-147 L code = alkaline phosphatase) AST (SGOT) (test code = 14 U/L 0-32 AST (SGOT)) ALT (SGPT) (test code = 9 U/L 0-33 ALT (SGPT)) globulin (test code = 2.7 g/dL 1.7-3.7 globulin) A/G ratio (test code = A/G 1.4 calc. 1.1-2.9 ratio) BUN/creatinine ratio (test 13.3 calc 10.0-28.0 code = BUN/creatinine ratio) eGFR non- 126.519 >60.000 (test code = eGFR mL/min/1.73A? non-) eGFR 151.823 >60.000 (test code = eGFR mL/min/1.73A? serbian) [facility] MedicalHemoglobin A1c/Hemoglobin.total in [id number] 00:00:00 Test Item Value Reference Range Interpretation Comments Hemoglobin A1c/Hemoglobin.total in 4.9 % 4.0-5.6 Blood (test code = 4548-4) [facility] - Serum or [id number] 00:00:00 Test Item Value Reference Range Interpretation Comments sodium (test code = 136 mmol/L 136-145 sodium) potassium (test code = 4.0 mmol/L 3.5-5.5 potassium) chloride (test code = 102 mmol/L 98-107 chloride) CO2 (test code = CO2) 22 mmol/ L 23-27 L glucose (test code = 97 mg/dL 70-99 glucose) BUN (test code = BUN) 8 mg/dL 6-20 creatinine (test code = 0.6 mg/dL 0.5-0.9 creatinine) calcium (test code = 9.3 mg/dL 8.8-10.6 calcium) total protein (test code = 6.5 g/dL 6.0-8.3 total protein) albumin (test code = 3.8 g/dL 3.5-5.2 albumin) total bilirubin (test code 0.2 mg/dL 0.0-1.2 = total bilirubin) alkaline phosphatase (test 43 U/L 44-147 L code = alkaline phosphatase) AST (SGOT) (test code = 14 U/L 0-32 AST (SGOT)) ALT (SGPT) (test code = 9 U/L 0-33 ALT (SGPT)) globulin (test code = 2.7 g/dL 1.7-3.7 globulin) A/G ratio (test code = A/G 1.4 calc. 1.1-2.9 ratio) BUN/creatinine ratio (test 13.3 calc 10.0-28.0 code = BUN/creatinine ratio) eGFR non- 126.519 >60.000 (test code = eGFR mL/min/1.73A? non-) eGFR 151.823 >60.000 (test code = eGFR mL/min/1.73A? serbian) [facility]+HIV1 p24 Ag [Presence] in Serum or Plasma by [id number] 00:00:00 Test Item Value Reference Range Interpretation Comments ethnicity: (test code = other ethnicity:) race: (test code = race:) other HIV Ag/Ab (test code = HIV non-reactive non-reactive Ag/Ab) [facility]atitis C virus Ab [Units/volume] in Serum by Immunoassay 2021-07-01 00:00:00 Test Item Value Reference Range Interpretation Comments ethnicity: (test code = other ethnicity:) race: (test code = race:) other hep C Ab. (S/co ratio) (test 0.09 S/co <0.80 code = hep C Ab. (S/co ratio)) hep. C Ab. (test code = hep. C non-reactive non-reactive Ab.) [facility] 1+2 Ab+HIV1 p24 Ag [Presence] in Serum or Plasma by [id number] 00:00:00 Test Item Value Reference Range Interpretation Comments ethnicity: (test code = other ethnicity:) race: (test code = race:) other HIV Ag/Ab (test code = HIV non-reactive non-reactive Ag/Ab) [facility]atitis C virus Ab [Units/volume] in Serum by Immunoassay 2021-07-01 00:00:00 Test Item Value Reference Range Interpretation Comments ethnicity: (test code = other ethnicity:) race: (test code = race:) other hep C Ab. (S/co ratio) (test 0.09 S/co <0.80 code = hep C Ab. (S/co ratio)) hep. C Ab. (test code = hep. C non-reactive non-reactive Ab.) [facility]HIV 1+2 Ab+HIV1 p24 Ag [Presence] in Serum or Plasma by [id number] 00:00:00 Test Item Value Reference Range Interpretation Comments ethnicity: (test code = other ethnicity:) race: (test code = race:) other HIV Ag/Ab (test code = HIV non-reactive non-reactive Ag/Ab) [facility]atitis C virus Ab [Units/volume] in Serum by Immunoassay 2021-07-01 00:00:00 Test Item Value Reference Range Interpretation Comments ethnicity: (test code = other ethnicity:) race: (test code = race:) other hep C Ab. (S/co ratio) (test 0.09 S/co <0.80 code = hep C Ab. (S/co ratio)) hep. C Ab. (test code = hep. C non-reactive non-reactive Ab.) [facility]
--- NOTE | 2022-06-08 17:48 | RAD REPORT ---
EXAM DESCRIPTION: Marielle Single View06/08/2022 5:17 pm CLINICAL HISTORY: Chest pain COMPARISON: 2012 FINDINGS: The lungs appear clear of acute infiltrate. The heart is normal size IMPRESSION: No acute abnormalities displayed
--- NOTE | 2022-06-08 18:04 | ER ---
Nurse's Notes [facility] Name: Deyanira Valencia Age: 31 yrs Sex: Female : 1990 Arrival Date: 06/08/2022 Time: 14:35 Bed IW1 Private MD: Diagnosis: Acute serous otitis media, left ear;Cough Presentation: 06/08 15:28 Chief complaint: Patient states: "I've had a cough with phlegm for 7 weeks now and I've aa5 taken antibiotics and steroids already". Coronavirus screen: cough unrelated to allergies. Ebola Screen: Patient denies travel to an Ebola-affected area in the 21 days before illness onset. Initial Sepsis Screen: Does the patient meet any 2 criteria? No. Patient's initial sepsis screen is negative. Does the patient have a suspected source of infection? No. Patient's initial sepsis screen is negative. Risk Assessment: Do you want to hurt yourself or someone else? Patient reports no desire to harm self or others. Onset of symptoms was 2022. 15:28 Method Of Arrival: Ambulatory aa5 15:28 Acuity: TONEY 3 aa5 Historical: - Allergies: 15:31 No Known Allergies; aa5 - PMHx: 15:31 None; aa5 - PSHx: 15:31 Cholecystectomy; aa5 15:33 Bile duct repair; aa5 - Immunization history:: Adult Immunizations unknown. - Social history:: Smoking status: Patient denies any tobacco usage or history of. Assessment: 18:35 Reassessment: Patient is alert, oriented x 3, equal unlabored respirations, skin aa5 warm/dry/pink. Vital Signs: 15:28 BP 146 / 98; Pulse 88; Resp 18 S; Temp 98(TE); Pulse Ox 100% on R/A; Weight 77.11 kg aa5 (R); Height 5 ft. 0 in. (R); 15:28 Body Mass Index 33.20 (77.11 kg, 152.4 cm) aa5 ED Course: 14:35 Patient arrived in ED. rg4 14:41 Steve Bravo PA is PHCP. [facility] 14:42 Jose Trujillo MD is Attending Physician. jmm 15:28 Arm band placed on. aa5 15:29 Triage completed. aa5 17:19 Chest Single View XRAY In Process Unspecified. EDMS 18:36 No provider procedures requiring assistance completed. Patient did not have IV access aa5 during this emergency room visit. Administered Medications: No medications were administered Outcome: 18:03 Discharge ordered by . dileep 18:36 Discharged to home ambulatory. aa5 18:36 Condition: stable 18:36 Discharge instructions given to patient, Instructed on discharge instructions, follow up and referral plans. medication usage, Demonstrated understanding of instructions, follow-up care, medications, Prescriptions given X 2. 18:36 Patient left the ED. aa5 Signatures: Dispatcher [employer] EDMS Steve Bravo PA PA jmm Calderon, Audri RN RN aa5 [facility] rg4 Corrections: (The following items were deleted from the chart) 15:34 15:28 BP 146 / 98; Pulse 88bpm; Resp 18bpm; Spontaneous; Pulse Ox 100% RA; Temp 98F aa5 Temporal; 77.11 kg Reported; Height 5 ft. 2 in. Reported; BMI: 31.0; aa5
--- NOTE | 2022-06-08 18:05 | EDPHYS ---
Physician Documentation [facility] Name: Deyanira Valencia Age: 31 yrs Sex: Female : 1990 Arrival Date: 06/08/2022 Time: 14:35 Bed IW1 Private MD: ED Physician Jose Trujillo HPI: 06/08 15:34 This 31 yrs old Female presents to ER via Ambulatory with complaints of Cough. [facility] 15:34 The patient or guardian reports cough. Onset: The symptoms/episode began/occurred jmm gradually, 7 week(s) ago. This is a 31 year old female with no chronic medical conditions that presents to the ED with complaints of cough, congestion, left ear pain. Recently finished a course of amoxicillin and steroids without relief. . Historical: - Allergies: 15:31 No Known Allergies; aa5 - PMHx: 15:31 None; aa5 - PSHx: 15:31 Cholecystectomy; aa5 15:33 Bile duct repair; aa5 - Immunization history:: Adult Immunizations unknown. - Social history:: Smoking status: Patient denies any tobacco usage or history of. ROS: 15:34 Constitutional: Negative for fever, chills, and weight loss, Cardiovascular: Negative jm for chest pain, palpitations, and edema. 15:34 ENT: Positive for ear pain. 15:34 Respiratory: Positive for cough. 15:34 All other systems are negative. Exam: 15:34 Constitutional: This is a well developed, well nourished patient who is awake, alert, jmm and in no acute distress. Head/Face: atraumatic. Eyes: EOMI, no conjunctival erythema appreciated 15:34 Neck: Trachea midline, Supple Chest/axilla: Normal chest wall appearance and motion. Cardiovascular: Regular rate and rhythm. No edema appreciated Respiratory: Normal respirations, no respiratory distress appreciated Abdomen/GI: Non distended Back: Normal ROM Skin: General appearance color normal MS/ Extremity: Moves all extremities, no obvious deformities appreciated, no edema noted to the lower extremities Neuro: Awake and alert Psych: Behavior is normal, Mood is normal, Patient is cooperative and pleasant 15:34 ENT: TM's: erythema, that is moderate, on the left, Posterior pharynx: erythema, that is mild. Vital Signs: 15:28 BP 146 / 98; Pulse 88; Resp 18 S; Temp 98(TE); Pulse Ox 100% on R/A; Weight 77.11 kg aa5 (R); Height 5 ft. 0 in. (R); 15:28 Body Mass Index 33.20 (77.11 kg, 152.4 cm) aa5 MDM: 15:34 Patient medically screened. [facility] 19:29 Differential Diagnosis: Bronchitis Upper Respiratory Infection Pharyngitis Otitis jmm Media. Data reviewed: vital signs, nurses notes, radiologic studies, plain films. Independent interpretation of the following test(s) in the Emergency Department X-Ray: My interpretation is no infiltrate appreciated. Counseling: I had a detailed discussion with the patient and/or guardian regarding: the historical points, exam findings, and any diagnostic results supporting the discharge/admit diagnosis, radiology results, the need for outpatient follow up, to return to the emergency department if symptoms worsen or persist or if there are any questions or concerns that arise at home. 06/08 15:34 Order name: Chest Single View XRAY; Complete Time: 17:49 jm Administered Medications: No medications were administered Disposition Summary: 06/08/22 18:03 Discharge Ordered Location: Home [facility] Condition: Stable [facility] Diagnosis - Acute serous otitis media, left ear jmm - Cough jm Followup: jmm - With: Private Physician - When: 2 - 3 days - Reason: Recheck today's complaints, Continuance of care, Re-evaluation by your physician Discharge Instructions: - Discharge Summary Sheet jmm - Otitis Media, Adult jmm - Cough, Adult jmm Forms: - Medication Reconciliation Form [facility] - Thank You Letter jm - Antibiotic Education m - Prescription Opioid Use [facility] - Work release form eb Prescriptions: - cefdinir 300 mg Oral capsule - take 1 capsule by ORAL route 2 times per day for 10 days; 20 capsule; Refills: jm 0, Product Selection Permitted - albuterol sulfate 90 mcg/actuation Inhalation HFA Aerosol Inhaler - inhale 2 Inhaler by INHALATION route every 4 to 6 hours as needed for shortness jmm of breath or wheezing; do not exceed 16 puffs per 24 hrs; 1 unit; Refills: 0, Product Selection Permitted Signatures: Dispatcher [employer] Steve Burns PA PA jmm Calderon, Audri, RN RN aa5
[2022-06-08 21:02] VITALS: BP 146/98; TEMP 98; O2SAT 100
== END 2022-06-08 18:36 | disposition home or self-care (01) ==
LOC: ER 14:33
DX: R05.9 Cough, unspecified (principal); H65.02 Acute serous otitis media, left ear
CPT/HCPCS: 71045

== ENCOUNTER 2022-06-12 09:01 | Emergency (ER) | payer OTHER ==
--- OUTSIDE RECORDS SUMMARY | 2022-06-12 09:06 | XMS REPORT | Continuity of Care Document ---
:1990 Author Organization [facility] t Address [address] [facility] [address] [place] [address] Care Team Providers Name Role Phone Sindi Cao MD Primary Care Physician Jazzy Dominguez Attending Clinician Unavailable GC_SHAHID_Angelica Attending Clinician Unavailable Dana Nunn MD Attending Clinician DANA NUNN Attending Clinician Unavailable Jazzy Dominguez Attending Clinician [phone] GC_GONZALEZ_Darin Attending Clinician Unavailable Gabino Alexis Attending Clinician [phone] DAVID VAUGHN Attending Clinician Unavailable MARIANA WAITE Attending Clinician Unavailable Jazzy Dominguez Admitting Clinician Unavailable GC_SHAHID_Angelica Admitting Clinician Unavailable Dana Nunn MD Admitting Clinician DANA NUNN Admitting Clinician Unavailable GC_Charlotte Admitting Clinician Unavailable Payers Payer Name Policy Type Policy Number Effective Date Expiration Date Serena strong [facility] [id number] 2021 CHOICE (MEDICAID 00:00:00 REPLACEMENT - HMO) [...] [facility] [place] NO KNOWN Drug Active Univers ALLERGIE Class ity of S [facility] Social History Social Habit Start Date Stop Date Quantity Comments Source ASSERTION 2021-04-23 University of 00:00:00 [facility] Alcohol intake 2015-09-02 2015-09-[address] [facility] 00:[facility]00 00:00:00 non-drinker of Medical Ce nter alcohol (finding) Sex Assigned At [address] [facility] 00:[facility] Smoking Status Start Date Stop Date Source Never Smoker [facility] Tobacco smoking consumption unknown [facility] Medications Ordered Filled Start Stop Current Ordering [...] BMI (Body Mass 2022-02-26 00:00:00 33.6 kg/m2 [facility] Medical Index) BP Systolic 2022-02-26 00:00:00 120 mm[Hg] Jw [facility] edical Body Weight 2022-02-26 00:00:00 172 [lb_av] Jw [facility] ed[facility] BP Diastolic 2022-01-23 00:00:00 80 mm[Hg] Jw [facility] Height 2022-01-23 00:00:00 60 [in_i] Jw [facility] edical BMI (Body Mass 2022-01-23 00:00:00 32.6 kg/m2 [facility] Medical Index) BP Systolic 2022-01-23 00:00:00 120 mm[Hg] Jw Oquendo edical Body Weight 2022-01-23 00:00:00 167 [lb_av] Jw O[facility]endo edical BP Diastolic 2022-01-06 00:00:00 80 mm[Hg] Jw [facility] edical Height 2022-01-06 00:00:00 60 [in_i] Jw Oquendo edical BMI (Body Mass 2022-01-06 00:00:00 36.3 kg/m2 [facility] Medical Index) BP Systolic 2022-01-06 00:00:00 124 mm[Hg] Jw O[facility]endo edical Body Weight 2022-01-06 00:00:00 186 [lb_av] Jw Oquendo edical BP Diastolic 2021-12-31 00:00:00 64 mm[Hg] Jw [facility] edical Height 2021-12-31 00:00:00 60 [in_i] Jw Oquendo edical BMI (Body Mass 2021-12-31 00:00:00 35.7 kg/m2 [facility] Medical Index) BP Systolic 2021-12-31 00:00:00 130 mm[Hg] Jw [facility] ed[facility] Body Weight 2021-12-31 00:00:00 183 [lb_av] Jw O[facility]endo edical Heart rate 2021-12-26 15:00:00 76 /min [facility] Oxygen saturation in 2021-12-26 15:00:00 98 /min [facility] Arterial blood by [facility] Pulse oximetry Branch Systolic blood 2021-12-26 14:45:00 127 mm[Hg] [facility]iver [facility] Diastolic blood 2021-12-26 14:45:00 76 mm[Hg] [facility] Body temperature 2021-12-26 12:00:00 36.89 Dannielle [facility] 2021-12-26 12:00:00 18 /min [facility] Body height 2021-12-26 12:00:00 152.4 cm [facility] Body weight 2021-12-26 12:00:00 82.101 kg [facility] BMI 2021-12-26 12:00:00 35.35 kg/m2 [facility] BP Diastolic 2021-12-25 00:00:00 60 mm[Hg] Jw [facility] ed[facility] Height 2021-12-25 00:00:00 60 [in_i] Jw Oquendo edical BMI (Body Mass 2021-12-25 00:00:00 36.1 kg/m2 [facility] Medical Index) BP Systolic 2021-12-25 00:00:00 120 [...] BMI (Body Mass 2021-12-03 00:00:00 35.3 kg/m2 [facility] Medical Index) BP Systolic 2021-12-03 00:00:00 120 mm[Hg] Jw M edical Body Weight 2021-12-03 00:00:00 181 [lb_av] Jw [facility]endo edical BP Diastolic 2021-11-19 00:00:00 58 mm[Hg] Jw M edical Height 2021-11-19 00:00:00 60 [in_i] Jw Oquendo edical BMI (Body Mass 2021-11-19 00:00:00 34.6 kg/m2 [facility] Medical Index) BP Systolic 2021-11-19 00:00:00 100 mm[Hg] Jw M edical Body Weight 2021-11-19 00:00:00 177 [lb_av] Jw [facility]endo edical BP Diastolic 2021-11-05 00:00:00 70 mm[Hg] Jw M edical Height 2021-11-05 00:00:00 60 [in_i] Jw Oquendo edical BMI (Body Mass 2021-11-05 00:00:00 33.6 kg/m2 [facility] Medical Index) BP Systolic 2021-11-05 00:00:00 102 mm[Hg] Jw M edical Body Weight 2021-11-05 00:00:00 172 [lb_av] Jw M edical BP Diastolic 2021-10-22 00:00:00 60 mm[Hg] Marjorieia M edical Height 2021-10-22 00:00:00 60 [in_i] Jw M edical BMI (Body Mass 2021-10-22 00:00:00 31.8 kg/m[facility] BP Systolic 2021-10-22 00:00:00 110 mm[Hg] [facility] M edical Body Weight 2021-10-22 00:00:00 163 [lb_av] [facility] BP Diastolic 2021-09-24 00:00:00 68 mm[Hg] [facility] M edical Height 2021-09-24 00:00:00 60 [in_i] [facility] M edical BMI (Body Mass 2021-09-24 00:00:00 31.6 kg/m2 [facility]) BP Systolic 2021-09-24 00:00:00 100 mm[Hg] [facility] M edical Body Weight 2021-09-24 00:00:00 162 [lb_av] Jw M edical BP Diastolic 2021-08-26 00:00:00 72 mm[Hg] [facility] M ed[facility] BP Systolic 2021-08-26 00:00:00 102 mm[Hg] [facility] M ed[facility] Body Weight 2021-08-26 00:00:00 158 [lb_av] Jw M edical BP Diastolic 2021-07-29 00:00:00 70 mm[Hg] Jw M edical Height 2021-07-29 00:00:00 60 [in_i] Jw M edical BMI (Body Mass 2021-07-29 00:00:00 30.1 kg/m2 [facility]) BP Systolic 2021-07-29 00:00:00 124 mm[Hg] Jw M edical Body Weight 2021-07-29 00:00:00 154 [lb_av] Jw M edical BP Diastolic 2021-07-15 00:00:00 58 mm[Hg] Jw M edical Height 2021-07-15 00:00:00 60 [in_i] Jw M edical BMI (Body Mass 2021-07-15 00:00:00 29.5 kg/m2 [facility]) BP Systolic 2021-07-15 00:00:00 116 mm[Hg] [facility] M edical Body Weight 2021-07-15 00:00:00 151 [lb_av] [facility] M ed[facility] BP Diastolic 2021-07-01 00:00:00 64 mm[Hg] [facility] ed[facility] Height 2021-07-01 00:00:00 60 [in_i] Marjorieia M edical BMI (Body Mass 2021-07-01 00:00:00 29.3 kg/m2 [facility] Index) BP Systolic 2021-07-01 00:00:00 110 mm[Hg] Jw Oquendo edical Body Weight 2021-07-01 00:00:00 150 [lb_av] Jw [facility] edical Procedures Procedure Date / Time Performing Clinician Source Performed [id number] 2022-01-10 00:00:00 JOHN [facility] NOTICE OF PRIVACY 2021-12-26 11:37:32 Doctor Unassigned, No [facility] PRACTICES Name Medical Branch CONSENT/REFUSAL FOR 2021-12-26 11:37:17 Doctor Unassigned, No [facility] Name Medical Branch ASSIGNMENT OF BENEFITS 2021-12-26 11:36:58 Doctor Unassigned, No [facility] Name Medical Branch ULTRASOUND RE TO 2021-11-19 [...] COVID-19 VACCINE (#1)] Future Scheduled Test 2022-06-08 COVID-19 VACCINE [facility] 14:36:05 (#1) [code = COVID-19 VACCINE (#1)] Future Scheduled Test 2022-06-08 [facility] 14:36:05 malignant neoplasm of cervix (procedure) [code = 607053781] Future Scheduled Test 2022-06-08 Screening for [facility] 14:36:05 malignant neoplasm of cervix (procedure) [code = 194953880] Future Scheduled Test 2022-06-[address] [facility] 14:36:05 [code = INFLUENZA VACCINE] Future Scheduled Test 2022-06-[address] [facility] 14:36:05 [code = INFLUENZA VACCINE] Diagnostic Test 2022-01-06 urinalysis, [facility] Pending 00:00:00 dipstick [code = urinalysis, dipstick] Encounters Start End Encounter Admission Attending Care Care Encounter Source Date/Time Date/Time Type Type Clinicians Facility Department ID 2022-01-14 [id number] [facility] 13:49:00 Sameen [facility] 2022-02-26 2022-02-26 [facility]en [facility] [id number] [facility] 00:00:00 00:00:00 Elina Dominguez MD: [address] [facility] [address], Office* [address], [place] [address] , Ph. 2022-02-25 2022-02-25 Outpatient GC_SWHAOMC_ PRIV PRIV 237 [id number] [facility] 00:00:00 00:00:00 Daliorcolt [id number] [facility] 2022-02-25 2022-02-25 Outpatient GC_SWHAOMC_ PRIV PRIV 237 [id number] [facility] 00:00:00 00:00:00 Noorudrayna [id number] [facility] 2022-02-25 2022-02-25 Outpatient GC_SWHAOMC_ PRIV PRIV 237 [id number] [facility] 00:00:00 00:00:00 Noorudrayna [id number] [facility] 2022-02-16 2022-02-16 Outpatient GC_SWHAOMC_ PRIV PRIV 237 [id number] [facility] 00:00:00 00:00:00 Noorudrayna [id number] [facility] 2022-01-23 2022-01-23 Outpatient GC_SWHAOMC_ PRIV PRIV 237 [id number] [facility] 00:00:00 00:00:00 Noorudrayna [id number] [facility] 2022-01-23 2022-01-23 Sameen [facility] [id number] [facility] 00:00:00 00:00:00 Elina Dominguez MD: [address] [facility], Office* [address], [place] [address] , Ph. 2022-01-22 2022-01-22 Outpatient GC_SWHAOMC_ PRIV PRIV 237 [id number] [facility] 00:00:00 00:00:00 Noorudrayna [id number] [facility] 2022-01-17 2022-01-17 Outpatient GC_SWHAOMC_ PRIV PRIV 237 [id number] [facility] 00:00:00 00:00:00 Nooruddin [id number] [facility] 2022-01-15 2022-01-15 Outpatient GC_SWHAOMC_ PRIV PRIV 237 [id number] [facility] 00:00:00 00:00:00 Nooruddin [id number] [facility] 2022-01-09 2022-01-13 Inpatient EM MICHAEL Dominguez OB [id number] [facility] 12:49:00 23:00:00 Sameen 49 [facility] [place] 2022-01-06 2022-01-06 Sameen [facility] 18 [facility] 00:00:00 00:00:00 Elina Dominguez MD: [address] [facility], Office* [address], [place] [address] , Ph. 2021-12-31 2021-12-31 Emergency EM MICHAEL Dominguez MAGALI [id number] [facility] 12:36:00 16:04:00 Sameen 38 [facility] [place] 2021-12-31 2021-12-31 Sameen [facility] 12 [facility] 00:00:00 00:00:00 Elina Dominguez In karen MD: [address] [facility], Office* [address], [place] [address] , Ph. 2021-12-26 2021-12-26 [facility] [id number] Univers 06:50:00 10:15:00 Encounter Dana SORTO [id number] [facility] [id number] [facility] [id number] [place] [id number] Branch 2021-12-26 2021-12-26 Outpatient P ADUM, [facility] TORIE [id number] Univers 06:50:00 10:15:00 DANA jennymadeline [facility] 2021-12-25 2021-12-25 Sameen [facility] 00:00:00 00:00:00 Elina Dominguez In karen ARCOS: [address] [facility], Office* [address], [place] [address] , Ph. 2021-12-17 2021-12-17 Sameen [facility] 00:00:00 00:00:00 Angelica [facility] In karen ARCOS: 7900 GC_[facility], Office* [address], [place] [address] , Ph. 2021-12-07 2021-12-07 Outpatient GC_SWHAOMC_ PRIV PRIV [id number] [facility] 00:00:00 00:00:00 Noorudrayna [id number] [facility] 2021-12-03 2021-12-03 Outpatient Nooruddin, PRIV PRIV [id number] 00:00:00 00:00:00 Jazzy [id number] 2021-12-03 2021-12-03 Sameen [facility] 00:00:00 00:00:00 Angelica [facility] In karen ARCOS: 79[address] [facility] [place] [facility], Office* [address], [place] [address] , Ph. 2021-11-28 2021-11-28 Outpatient GC_SWHATBIC PRIV PRIV 237 [id number] [facility] 00:00:00 00:00:00 _Nooruddi [id number] [facility] 2021-11-19 2021-11-19 Outpatient Nooruddin, PRIV PRIV [id number] 00:00:00 00:00:00 Sameen [id number] 2021-11-19 2021-11-19 Sameen [facility] 00:00:00 00:00:00 Elina Dominguez MD: [address], Office* [address], [place] [address] , Ph. 2021-11-07 2021-11-07 Outpatient GC_SWHAOMC_ PRIV PRIV 237 [id number] [facility] 00:00:00 00:00:00 Nooruddin [id number] Medi teodoro 2021-11-05 2021-11-05 Gabino [facility] 00:00:00 00:00:00 [facility] TOM Alexis MD: [address], [address], [place] [address] , Ph. 2021-11-05 2021-11-05 Outpatient Alexis, PRIV PRIV [id number] 00:00:00 00:00:00 Gabino [id number] Cody [id number] 2021-10-31 2021-10-31 Outpatient GC_SWHAOMC_ PRIV PRIV 237 [id number] [facility] 00:00:00 00:00:00 Nooruddin [id number] [facility] teodoro 2021-10-22 2021-10-22 Outpatient GC_SWHAOMC_ PRIV PRIV 237 [id number] [facility] 00:00:00 00:00:00 Nooruddin [id number] [facility] teodoro 2021-10-22 2021-10-22 Sameen [facility] 00:00:00 00:00:00 Elina Dominguez MD: [address] YANELYOMRoxie [address], Office* [address], [place] [address] , Ph. 2021-10-22 2021-10-22 Outpatient Noorudrayna, PRIV PRIV [id number] 00:00:00 00:00:00 Sameen [id number] 2021-09-30 2021-09-30 Outpatient GC_SWHAOMC_ PRIV PRIV 237 [id number] [facility] 00:00:00 00:00:00 Noorcolt [id number] [facility] 2021-09-24 2021-09-24 Outpatient GC_SWHAOMC_ PRIV PRIV 237 [id number] [facility] 12:11:00 12:11:00 Noorcolt [id number] [facility] 2021-09-24 2021-09-24 Sameen [facility] 06 [facility] 00:00:00 00:00:00 Eilna Dominguez MD: [address] GC_[facility]_ Kevin [facility], Office* [address], [place] [address] , Ph. 2021-09-24 2021-09-24 Outpatient Angelica, PRIV PRIV [id number] 00:00:00 00:00:00 Sameen [id number] 2021-09-18 2021-09-18 Outpatient GC_SWHAOMC_ PRIV PRIV 237 [id number] [facility] 12:55:00 12:55:00 Noorcolt [id number] [facility] 2021-09-18 2021-09-18 Outpatient GC_SWHAOMC_ PRIV PRIV [id number] [facility] 12:55:00 12:55:00 Noorcolt [id number] [facility] 2021-08-28 2021-08-28 Outpatient GC_SWHAOMC_ PRIV PRIV 237 [id number] [facility] 08:31:00 08:31:00 Noorcolt [id number] [facility] 2021-08-26 2021-08-26 Outpatient GC_SWHAOMC_ PRIV PRIV 237 [id number] [facility] 11:32:00 11:32:00 Nomarielle [id number] [facility] 2021-08-26 2021-08-26 Sameen [facility] [id number] [facility] 00:00:00 00:00:00 Elina Dominguez MD: 7900 GC_[facility]_ Kevin [address] [place], Office* [address], [place] [address] , Ph. 2021-08-26 2021-08-26 Outpatient Nooruddin, PRIV PRIV [id number] 00:00:00 00:00:00 Jazzy [id number] 2021-08-21 2021-08-21 Outpatient GC_SWHATBIC PRIV PRIV 237 [id number] [facility] 03:23:00 03:23:00 _Nooruddi [id number] [facility] 2021-08-21 2021-08-21 Outpatient GC_SWHAOMC_ PRIV PRIV [id number] [facility] 03:23:00 03:23:00 Nooruddin [id number] [facility] 2021-08-19 2021-08-19 Outpatient GC_SWHATBIC PRIV PRIV 237 [id number] [facility] 10:21:00 10:21:00 _Nooruddi [id number] [facility] 2021-07-31 2021-07-31 Outpatient GC_SWHAOMC_ PRIV PRIV [id number] [facility] 11:07:00 11:07:00 Nooruddin [id number] [facility] 2021-07-29 2021-07-29 Outpatient GC_SWHAOMC_ PRIV PRIV [id number] [facility] 04:05:00 04:05:00 Nooruddin [id number] [facility] 2021-07-29 2021-07-29 Sameen [facility] 10 [facility] 00:00:00 00:00:00 Angelica [facility] karen ARCOS: 7900 GC_S[facility]AOMC_ Kevin [address] [place], Office* [address], [place] [address] , Ph. 2021-07-29 2021-07-29 Outpatient Nooruddin, PRIV PRIV [id number] 00:00:00 00:00:00 Jazzy [id number] 2021-07-23 2021-07-23 Outpatient GC_SWHAOMC_ PRIV PRIV [id number] [facility] 07:00:00 07:00:00 Noorudrayna [id number] [facility] 2021-07-23 2021-07-23 Outpatient GC_SWHAOMC_ PRIV PRIV [id number] [facility] 07:00:00 07:00:00 Nooruddin [id number] [facility] 2021-07-22 2021-07-22 Outpatient GC_SWHAOMC_ PRIV PRIV [id number] [facility] 02:09:00 02:09:00 Noorudrayna [id number] [facility] 2021-07-15 2021-07-15 Outpatient GC_SWHAOMC_ PRIV PRIV [id number] [facility] 02:31:00 02:31:00 Noorudrayna [id number] [facility] 2021-07-15 2021-07-15 Sameen [facility] 00:00:00 00:00:00 Angelica [facility] karen ARCOS: 7900 GC_[facility]OM[facility]_ Kevin [facility], Office* [address], [place] [address] , Ph. 2021-07-15 2021-07-15 Outpatient Noorudrayna, PRIV PRIV [id number]- 00:00:00 00:00:00 Jazzy [id number] 2021-07-14 2021-07-14 Outpatient GC_SWHAOMC_ PRIV PRIV [id number] [facility] 01:31:00 01:31:00 Noorudrayna [id number] [facility] 2021-07-10 2021-07-10 Outpatient GC_SWHAOMC_ PRIV PRIV [id number] [facility] 01:29:00 01:29:00 Noorcolt [id number] [facility] 2021-07-09 2021-07-09 Outpatient GC_SWHAOMC_ PRIV PRIV [id number] [facility] 07:54:00 07:54:00 Noorudrayna [id number] [facility] 2021-07-01 2021-07-01 Outpatient GC_SWHAOMC_ PRIV PRIV 237 [id number] [facility] 02:59:00 02:59:00 Nooruddin [id number] [facility] 2021-07-01 2021-07-01 Outpatient MAJRORIE Dominguez PRIV [id number] 00:00:00 00:00:00 Jazzy [id number] 2021-07-01 2021-07-01 Sameen [facility] 12 [facility] 00:00:00 00:00:00 Angelica [facility] In karen ARCOS: 7900 GC_[facility]OM[facility]_ [facility], Office* [address], [place] [address] , Ph. 2021-06-30 2021-06-30 Outpatient GC_SWHAOMC_ PRIV PRIV [id number] [facility] 04:43:00 04:43:00 Nooruddin [id number] [facility] 2021-06-27 2021-06-27 Outpatient GC_SWHAOMC_ PRIV PRIV [id number] [facility] 04:12:00 04:12:00 Nooruddin [id number] [facility] 2021-06-20 2021-06-20 Outpatient GC_SWHAOMC_ PRIV PRIV [id number] [facility] 12:04:00 12:04:00 Nooruddin [id number] [facility] 2021-06-03 2021-06-03 Outpatient GC_SWHAOMC_ PRIV PRIV [id number] [facility] 10:20:00 10:20:00 Nooruddin [id number] [facility] 2012-09-20 2012-09-20 Outpatient JH VAUGHN, [facility] [id number] [place] 06:13:00 06:13:00 DAVID [id number] [facility] 2012-07-28 2012-07-28 Emergency ER RAVINDRA [facility] [id number] [place] 21:12:00 23:40:00 MARIANA [id number] [facility] Results Test Description Test Time Test Comments Results Result Comments Source SURGICAL 2022-01-27 16:46:00 Test Item Value Reference Range Interpretation Comme nts SURGICAL RUN DATE: (test 01/27/22 [facility] PAGE 1 RUN TIME: 1646 Specimen Inquiry RUN USER: INTERFACE code = PATIENT: ) IHEU LOPEZ LOC: BE U #: [id number] AGE/SX: 31/F ROOM: [facility] RE01/09/22REG DR: Sa vic Dominguez MD : 89 BED: A DIS: 01/13/22 STATUS: DIS IN TLOC: SPEC #: [id number] RECD: STATUS: VICKY ROSA #: [id number] EZIO: 01/10/22- SUBM DR: Jazzy Dominguez MD ENTERED: 01/12/22 SP TYPE: SURGICAL OTHR DR: ORDERED: ANATOMIC SPEC, SPEC TRACK, [id number] PROCEDURES: 883 07 (01/12/22) TISSUES: A. PLACENTA, THIRD TRIMESTER (30 [...] membranes with mild acute chorioamnionitis. GROSS DESCRIPTION Vishal kelly, labeled with Patient's name, MAURO, CAMELIA and "placenta", is a singletonplacenta with attac [...] beefy parenchyma; no lesionsare gr ossly identified. Architectural Designer sections submitted as follows: A1: Membrane roll and cordA2-4: Disc cros s-sections.XZ 01/26/22 Technical component performed at [id number] , [place], [place] [address] Unless gross only, the diagnosis is based upon microscopic examination.Immunohistochemi stry: This test was developed and its performance characteristicsdetermined by this laboratory. It has n ot been approved nor does it need approval by the CONTINUED ON NEXT PAGE RUN DATE: 01/27/22 Arnold garcia PAGE 2 RUN TIME: 6 Specimen Inquiry RUN USER: INTERFACE SPEC #: [id number] PATIENT: HIEU LOPEZ #[id number] (Continued) GROSS DESCRIPTION (Continued ) FDA. Appropriate positive and negative controls are reviewed and judged to beacceptable. Nemesio milton is certified under the Clinical Laboratory ImprovementAmendments (CLIA-88) as qualified to pe rform high complexity clinical laboratory testing. CLINICAL INFORMATION 01/10/22, 39.3 WEEKS, G2 T0 L0, C/S, FEVER , CHORIO, FAILURE OF DESCENT, HSV+. Signed SIGNATURE ON FILE Socorro Padron 01/27/22 1646 END OF REPORT COMPREHENSIVE METABOLIC [id number] 11:21:00 Test Item Value Reference Range Interpretation [...] ADVISED SHE WILL DRAW THIS PATIENT.CBC W/AUTO [id number] 11:11:00 Test Item Value Reference Range Interpretation [...] WILL DRAW THIS PATIENT.- XR ABDOMEN 1 [id number] 00:00:00 [facility] LOPEZRICKY HOYOSMadeline GLOVER : 1990 Sex: F Patient Name: HIEU LOPEZ Unit No: [id number] EXAMS: CPT CODE: [id number] XR ABDOMEN 1 [id number] PROCEDURE INFORMATION: Exam: XR Abdomen Exam date and time: 01/12/2022 10:06 AM Age: 31 years old Clinical indication: Nausea and vomiting; Prior surgery; Surgery type: 01/10, gallbladder 2012; Additional info: Continuous nausea and vomiting TECHNIQUE: Imaging protocol: Radiologic examof the abdomen. Views: Frontal supine view of [...] at 1019 Reported and signed by: Rebel Fuchs MD CC: Jazzy Dominguez MD Technologist: Rod Johnson, RT Trnscrbd D/ (1019) GCD.CPS Orig Print D/T: S: 01/12/2022 (1019) [facility] NAME: HIEU LOPEZ Radiology Department PHYS: MARICEL.Jazzy Lopez [address] : 1990 AGE: 31 SEX: F [place], [place] [address] LOC: [id number] [address] PHONE #: [phone] EXAM DATE: 01/12/2022 STATUS: ADM IN FAX #: [phone] RAD NO: Page 1 [facility] [id number] 12:18:00 Test Item Value Reference Range Interpretation Comments HEMOGLOBIN (test code = HGB) 10.5 g/dL 10.1-13.8 N HEMATOCRIT (test code = HCT) 30.5 % 32.5-41.8 L UR PROTEIN/CREATININE [id number] 00:41:00 Test Item Value Reference Range Interpretation Comments UR PROTEIN RANDOM (test code = 246.5 mg/dL PROTU) UR CREATININE RANDOM (test code 130.3 mg/dL = CREATU) PROTEIN/CREATININE RATIO (test 1.9 mg/gcrea <200 code = P/CRATIO) COMPREHENSIVE METABOLIC [id number] 22:33:00 Test Item Value Reference Range Interpretation [...] H code = ALKP) AG HEPATITIS B [id number] 14:27:00 Test Item Value Reference Range Interpretation Comments AG HEPATITIS B SURFACE (test code NONREACTIVE NONREACTIVE = HBSAG) AB HEPATITIS C [id number] 14:27:00 Test Item Value Reference Range Interpretation Comments AB HEPATITIS C (test code = NONREACTIVE NONREACTIVE HCVAB) SIGNAL TO CUTOFF (test code = 0.03 <0.80 N CUTOFF) AB [id number] 14:27:00 Test Item Value Reference Range Interpretation Comments AB TREPONEMA (test code = TREPAB) NONREACTIVE NONREACTIVE AB HIV 1 14:27:00 Test Item Value Reference Range Interpretation Comments AB HIV 1 2 (test NONREACTIVE NONREACTIVE Done by [facility] code = AUR10II) 4th Gen HIV Ag/Ab Combo Screen CBC W/AUTO [id number] 13:17:00 Test Item Value Reference Range Interpretation [...] NORMAL NORMAL code = PLTMR) RUPTURE OF [id number] 12:23:00 Test Item Value Reference Range Interpretation Comments RUPTURE OF MEMBRANES (test code = RUPTURED ROM) Urinalysis macro (dipstick) panel - [id number] 13:27:00 Test Item Value Reference Range Interpretation Comments Leukocytes (test code = Leukocytes) Negative Nitrite (test code = Nitrite) negative Protein (test code = Protein) Trace Glucose (test code = Glucose) Negative [facility]inal[facility] macro (dipstick) panel - [id number] 09:58:00 Test Item Value Reference Range Interpretation Comments Leukocytes (test code = Leukocytes) Negative Nitrite (test code = Nitrite) negative Protein (test code = Protein) Negative Glucose (test code = Glucose) Negative [facility] Medical[facility]inalysis macro (dipstick) panel - [id number] 09:58:00 Test Item Value Reference Range Interpretation Comments Leukocytes (test code = Leukocytes) Negative Nitrite (test code = Nitrite) negative Protein (test code = Protein) Negative Glucose (test code = Glucose) Negative [facility] MedicalRUPTURE OF [id number] 15:32:00 Test Item Value Reference Range Interpretation Comments RUPTURE OF MEMBRANES (test code NON-RUPTURED = ROM) - US [id number] 00:00:00 [facility]ICKY LOPEZMadeline GLOVER : 1990 Sex: F Patient Name: HIEU LOPEZN Unit No: [id number] EXAMS: CPT CODE: [id number] [place] [address]3944 PROCEDURE INFORMATION: Exam: US , Limited Exam [...] GCD.CPS Orig Print D/T: S: 12/31/2021 (1418) [facility] NAME: HIEU LOPEZ Radiology Department PHYS: MARICEL.Bur[place] - Jazzy Dominguez [address] : 1990 AGE: 31 SEX: F [place], [place] [address] LOC: JacMAGALI PHONE #: [phone] EXAM DATE: 12/31/2021 STATUS: REG ER FAX #: [phone] RAD NO: Page 1 Signed Report Patient Name: HIEU LOPEZ Unit No: [id number] EXAMS: CPT CODE: [id number] [place] L[place] 07059 (Continued) [facility] NAME: HIEU LOPEZ Radiology Department PHYS: DALIPAUL.[place] - Jazzy Dominguez [address] : 1990 AGE: 31 SEX: F [place], [place] [address] LOC: JacMAGALI PHONE #: [phone] EXAM DATE: 12/31/2021 STATUS: REG ER FAX #: [phone] RAD NO: Page 2 Signed Report Urinalysis macro (dipstick) panel - [id number] 16:19:00 Test Item Value Reference Range Interpretation Comments Leukocytes (test code = Leukocytes) Negative Nitrite (test code = Nitrite) negative Protein (test code = Protein) Trace Glucose (test code = Glucose) Negative [facility]Urinalysis macro (dipstick) panel - [id number] 16:19:00 Test Item Value Reference Range Interpretation Comments Leukocytes (test code = Leukocytes) Negative Nitrite (test code = Nitrite) negative Protein (test code = Protein) Trace Glucose (test code = Glucose) Negative [facility] MedicalUrinalysis macro (dipstick) panel - [id number] 16:19:00 Test Item Value Reference Range Interpretation Comments Leukocytes (test code = Leukocytes) Negative Nitrite (test code = Nitrite) negative Protein (test code = Protein) Trace Glucose (test code = Glucose) Negative [facility] MedicalUrinalysis macro (dipstick) panel - [id number] 16:19:00 Test Item Value Reference Range Interpretation Comments Leukocytes (test code = Leukocytes) Negative Nitrite (test code = Nitrite) negative Protein (test code = Protein) Trace Glucose (test code = Glucose) Negative [facility] MedicalStreptococcus agalactiae [Presence] in Specimen by Organism specific [id number] 00:00:00 Test Item Value Reference Range Interpretation Comments culture, genital (strep B) (test negative negative code = culture, genital (strep B)) [facility] MedicalStreptococcus agalactiae [Presence] in Specimen by Organism specific [id number] 00:00:00 Test Item Value Reference Range Interpretation Comments culture, genital (strep B) (test negative negative code = culture, genital (strep B)) [facility] MedicalStreptococcus agalactiae [Presence] in Specimen by Organism specific [id number] 00:00:00 Test Item Value Reference Range Interpretation Comments culture, genital (strep B) (test negative negative code = culture, genital (strep B)) [facility] MedicalStreptococcus agalactiae [Presence] in Specimen by Organism specific [id number] 00:00:00 Test Item Value Reference Range Interpretation Comments culture, genital (strep B) (test negative negative code = culture, genital (strep B)) [facility] MedicalUrinalysis macro (dipstick) panel - [id number] 15:55:00 Test Item Value Reference Range Interpretation Comments Leukocytes (test code = Leukocytes) Negative Nitrite (test code = Nitrite) negative Protein (test code = Protein) Trace Glucose (test code = Glucose) Negative [facility]Urinalysis macro (dipstick) panel - [id number] 15:55:00 Test Item Value Reference Range Interpretation Comments Leukocytes (test code = Leukocytes) Negative Nitrite (test code = Nitrite) negative Protein (test code = Protein) Trace Glucose (test code = Glucose) Negative [facility]Urinalysis macro (dipstick) panel - [id number] 15:55:00 Test Item Value Reference Range Interpretation Comments Leukocytes (test code = Leukocytes) Negative Nitrite (test code = Nitrite) negative Protein (test code = Protein) Trace Glucose (test code = Glucose) Negative [facility] MedicalReagin Ab [Presence] in Serum by [id number] 00:00:00 Test Item Value Reference Range Interpretation Comments RPR (test code = RPR) non-reactive non-reactive [facility] MedicalHIV 1+2 Ab+HIV1 p24 Ag [Presence] in Serum or Plasma by [id number] 00:00:00 Test Item Value Reference Range Interpretation Comments HIV Ag/Ab (test code = HIV non-reactive non-reactive Ag/Ab) [facility]Reagin Ab [Presence] in Serum by [id number] 00:00:00 Test Item Value Reference Range Interpretation Comments RPR (test code = RPR) non-reactive non-reactive [facility]HIV 1+2 Ab+HIV1 p24 Ag [Presence] in Serum or Plasma by [id number] 00:00:00 Test Item Value Reference Range Interpretation Comments HIV Ag/Ab (test code = HIV non-reactive non-reactive Ag/Ab) [facility]Reagin Ab [Presence] in Serum by [id number] 00:00:00 Test Item Value Reference Range Interpretation Comments RPR (test code = RPR) non-reactive non-reactive [facility]HIV 1+2 Ab+HIV1 p24 Ag [Presence] in Serum or Plasma by [id number] 00:00:00 Test Item Value Reference Range Interpretation Comments HIV Ag/Ab (test code = HIV non-reactive non-reactive Ag/Ab) [facility] MedicalChlamydia trachomatis+Neisseria gonorrhoeae rRNA [Presence] in Urine by [id number] 00:00:00 Test Item Value Reference Range Interpretation Comments aptima combo 2 urine (CT) (test code = CT neg negative aptima combo 2 urine (CT)) aptima combo 2 urine (GC) (test code = GC neg negative aptima combo 2 urine (GC)) [facility] MedicalChlamydia trachomatis+Neisseria gonorrhoeae rRNA [Presence] in Urine by [id number] 00:00:00 Test Item Value Reference Range Interpretation Comments aptima combo 2 urine (CT) (test code = CT neg negative aptima combo 2 urine (CT)) aptima combo 2 urine (GC) (test code = GC neg negative aptima combo 2 urine (GC)) [facility] MedicalChlamydia trachomatis+Neisseria gonorrhoeae rRNA [Presence] in Urine by [id number] 00:00:00 Test Item Value Reference Range Interpretation Comments aptima combo 2 urine (CT) (test code = CT neg negative aptima combo 2 urine (CT)) aptima combo 2 urine (GC) (test code = GC neg negative aptima combo 2 urine (GC)) [facility] MedicalChlamydia trachomatis+Neisseria gonorrhoeae rRNA [Presence] in Urine by [id number] 00:00:00 Test Item Value Reference Range Interpretation Comments aptima combo 2 urine (CT) (test code = CT neg negative aptima combo 2 urine (CT)) aptima combo 2 urine (GC) (test code = GC neg negative aptima combo 2 urine (GC)) [facility] panel - Blood by Automated [id number] 00:00:00 Test Item Value Reference Range Interpretation [...] code = baso #) 0.0 10 0.0-0.2 [facility] panel - Blood by Automated [id number] 00:00:00 Test Item Value Reference Range Interpretation [...] code = baso #) 0.0 10 0.0-0.2 [facility] panel - Blood by Automated [id number] 00:00:00 Test Item Value Reference Range Interpretation [...] code = baso #) 0.0 10 0.0-0.2 [facility] panel - Blood by Automated [id number] 00:00:00 Test Item Value Reference Range Interpretation [...] 0.0-0.2 [facility]inalysis macro (dipstick) panel - [id number] 14:51:00 Test Item Value Reference Range Interpretation Comments Leukocytes (test code = Leukocytes) Negative Nitrite (test code = Nitrite) negative Protein (test code = Protein) Negative Glucose (test code = Glucose) Negative [facility]Urinalysis macro (dipstick) panel - [id number] 14:51:00 Test Item Value Reference Range Interpretation Comments Leukocytes (test code = Leukocytes) Negative Nitrite (test code = Nitrite) negative Protein (test code = Protein) Negative Glucose (test code = Glucose) Negative [facility]Urinalysis macro (dipstick) panel - [id number] 14:51:00 Test Item Value Reference Range Interpretation Comments Leukocytes (test code = Leukocytes) Negative Nitrite (test code = Nitrite) negative Protein (test code = Protein) Negative Glucose (test code = Glucose) Negative [facility]Urinalysis macro (dipstick) panel - [id number] 10:42:38 Test Item Value Reference Range Interpretation Comments Protein (test code = Protein) Negative Glucose (test code = Glucose) Negative [facility]Urinalysis macro (dipstick) panel - [id number] 10:42:38 Test Item Value Reference Range Interpretation Comments Protein (test code = Protein) Negative Glucose (test code = Glucose) Negative [facility]Urinalysis macro (dipstick) panel - [id number] 10:42:38 Test Item Value Reference Range Interpretation Comments Protein (test code = Protein) Negative Glucose (test code = Glucose) Negative [facility]Urinalysis macro (dipstick) panel - [id number] 10:42:38 Test Item Value Reference Range Interpretation Comments Protein (test code = Protein) Negative Glucose (test code = Glucose) Negative [facility]Urinalysis macro (dipstick) panel - [id number] 14:19:00 Test Item Value Reference Range Interpretation Comments Leukocytes (test code = Leukocytes) Negative Nitrite (test code = Nitrite) negative Protein (test code = Protein) Negative Glucose (test code = Glucose) Negative [facility]Urinalysis macro (dipstick) panel - [id number] 12:33:00 Test Item Value Reference Range Interpretation Comments Leukocytes (test code = Leukocytes) Negative Nitrite (test code = Nitrite) negative Protein (test code = Protein) Negative Glucose (test code = Glucose) Negative [facility] MedicalGlucose [Mass/volume] in Serum or Plasma --1 hour post dose [id number] 00:00:00 Test Item Value Reference Range Interpretation Comments g.T.T. 1HR(50) (test code = g.T.T. 133 mg/dL <140 1HR(50)) [facility] MedicalGlucose [Mass/volume] in Serum or Plasma --1 hour post dose [id number] 00:00:00 Test Item Value Reference Range Interpretation Comments g.T.T. 1HR(50) (test code = g.T.T. 133 mg/dL <140 1HR(50)) [facility] panel - Blood by Automated [id number] 00:00:00 Test Item Value Reference Range Interpretation [...] code = baso #) 0.0 10 0.0-0.2 [facility] panel - Blood by Automated [id number] 00:00:00 Test Item Value Reference Range Interpretation [...] code = baso #) 0.0 10 0.0-0.2 [facility] - [id number] 11:12:00 Test Item Value Reference Range Interpretation Comments Leukocytes (test code = Leukocytes) Negative Nitrite (test code = Nitrite) negative Protein (test code = Protein) Negative Glucose (test code = Glucose) Negative [facility] 1- aptima [id number] 00:00:00 Test Item Value Reference Range Interpretation Comments hsv 1- aptima tube (test code = hsv detected not detected A 1- aptima tube) [facility] 2- aptima [id number] 00:00:00 Test Item Value Reference Range Interpretation Comments hsv 2- aptima tube (test code = not detected not detected hsv 2- aptima tube) [facility] 1- aptima [id number] 00:00:00 Test Item Value Reference Range Interpretation Comments hsv 1- aptima tube (test code = hsv detected not detected A 1- aptima tube) [facility] 2- aptima [id number] 00:00:00 Test Item Value Reference Range Interpretation Comments hsv 2- aptima tube (test code = not detected not detected hsv 2- aptima tube) [facility]-Snvaynxblym [Mass/volume] in Serum or [id number] 00:00:00 Test Item Value Reference Range Interpretation Comments maternal serum AFP screen (test code negative = maternal serum AFP screen) [facility] (dipstick) panel - [id number] 09:11:00 Test Item Value Reference Range Interpretation Comments Leukocytes (test code = Leukocytes) Negative Nitrite (test code = Nitrite) negative Protein (test code = Protein) Trace Glucose (test code = Glucose) Negative [facility]inalysis macro (dipstick) panel - [id number] 09:11:00 Test Item Value Reference Range Interpretation Comments Leukocytes (test code = Leukocytes) Negative Nitrite (test code = Nitrite) negative Protein (test code = Protein) Trace Glucose (test code = Glucose) Negative [facility]Urinalysis macro (dipstick) panel - [id number] 10:27:00 Test Item Value Reference Range Interpretation Comments Leukocytes (test code = Leukocytes) Negative Nitrite (test code = Nitrite) negative Protein (test code = Protein) Negative Glucose (test code = Glucose) Negative [facility] Medicalpap, LB + HR [id number] 00:00:00 Test Item Value Reference Range Interpretation Comments Pap, liquid-based (test code = Pap, nilm nilm liquid-based) [facility]pap, LB + HR [id number] 00:00:00 Test Item Value Reference Range Interpretation Comments Pap, liquid-based (test code = Pap, nilm nilm liquid-based) [facility] MedicalChlamydia trachomatis and Neisseria gonorrhoeae rRNA panel - Specimen by JAVED with probe [id number] 00:00:00 Test Item Value Reference Range Interpretation Comments aptima combo 2 swab (CT) (test code = CT neg negative aptima combo 2 swab (CT)) aptima combo 2 swab (GC) (test code = GC neg negative aptima combo 2 swab (GC)) [facility] MedicalChlamydia trachomatis and Neisseria gonorrhoeae rRNA panel - Specimen by JAVED with probe [id number] 00:00:00 Test Item Value Reference Range Interpretation Comments aptima combo 2 swab (CT) (test code = CT neg negative aptima combo 2 swab (CT)) aptima combo 2 swab (GC) (test code = GC neg negative aptima combo 2 swab (GC)) [facility] MedicalHemoglobin electrophoresis panel in [id number] 00:00:00 Test Item Value Reference Range Interpretation Comments Hb A (test code = 97.3 % 96.7-97.8 Hb A) Hb A2 (test code = 2.7 % 2.2-3.2 Hb A2) Hb C (test code = not detected not detected Hb C) Hb F (test code = not detected See_Comment [Automate d message] Hb F) The system [employer] generated this result transmitted ref erence range: [...] (IgG)) [facility] MedicalBacteria identified in Urine by [id number] 00:00:00 Test Item Value Reference Range Interpretation [...] (test code = WBC, 0-4 0-4 urine) [facility] and [id number] 00:00:00 Test Item Value Reference Range Interpretation [...] to interpret this result as normal/abnormal . [facility] MedicalHemoglobin electrophoresis panel in [id number] 00:00:00 Test Item Value Reference Range Interpretation Comments Hb A (test code = 97.3 % 96.7-97.8 Hb A) Hb A2 (test code = 2.7 % 2.2-3.2 Hb A2) Hb C (test code = not detected not detected Hb C) Hb F (test code = not detected See_Comment [Automate d message] Hb F) The system [employer] generated this result transmitted ref erence range: [...] code = immune immune varicella zos. (IgG)) [facility] MedicalBacteria identified in Urine by [id number] 00:00:00 Test Item Value Reference Range Interpretation [...] (test code = WBC, 0-4 0-4 urine) [place] [address] panel - Serum and [id number] 00:00:00 Test Item Value Reference Range Interpretation [...] to interpret this result as normal/abnormal . [facility] MedicalHemoglobin electrophoresis panel in [id number] 00:00:00 Test Item Value Reference Range Interpretation Comments Hb A (test code = 97.3 % 96.7-97.8 Hb A) Hb A2 (test code = 2.7 % 2.2-3.2 Hb A2) Hb C (test code = not detected not detected Hb C) Hb F (test code = not detected See_Comment [Automate d message] Hb F) The system [employer] generated this result transmitted ref erence range: [...] code = immune immune varicella zos. (IgG)) [facility] MedicalBacteria identified in Urine by [id number] 00:00:00 Test Item Value Reference Range Interpretation [...] (test code = WBC, 0-4 0-4 urine) [place] [address] panel - Serum and [id number] 00:00:00 Test Item Value Reference Range Interpretation [...] to interpret this result as normal/abnormal . [facility] HospitalHem[facility] A1c/Hemoglobin.total in [id number] 00:00:00 Test Item Value Reference Range Interpretation Comments Hemoglobin A1c/Hemoglobin.total in 4.9 % 4.0-5.6 Blood (test code = 4548-4) [facility] 2000 panel - Serum or [id number] 00:00:00 Test Item Value Reference Range Interpretation [...] 151.823 >60.000 (test code = eGFR mL/min/1.73A? wallisian) [facility] HospitalHemoglobin A1c/Hemoglobin.total in [id number] 00:00:00 Test Item Value Reference Range Interpretation Comments Hemoglobin A1c/Hemoglobin.total in 4.9 % 4.0-5.6 Blood (test code = 4548-4) [facility] 2000 panel - Serum or [id number] 00:00:00 Test Item Value Reference Range Interpretation [...] 151.823 >60.000 (test code = eGFR mL/min/1.73A? wallisian) [facility] MedicalHemoglobin A1c/Hemoglobin.total in [id number] 00:00:00 Test Item Value Reference Range Interpretation Comments Hemoglobin A1c/Hemoglobin.total in 4.9 % 4.0-5.6 Blood (test code = 4548-4) [facility] 2000 panel - Serum or [id number] 00:00:00 Test Item Value Reference Range Interpretation [...] 151.823 >60.000 (test code = eGFR mL/min/1.73A? wallisian) [facility]HIV 1+2 Ab+HIV1 p24 Ag [Presence] in Serum or Plasma by [id number] 00:00:00 Test Item Value Reference Range Interpretation [...] Ag [Presence] in Serum or Plasma by [id number] 00:00:00 Test Item Value Reference Range Interpretation [...] Ag [Presence] in Serum or Plasma by [id number] 00:00:00 Test Item Value Reference Range Interpretation Comments ethnicity: (test code = other ethnicity:) race: (test code = race:) other HIV Ag/Ab (test code = HIV non-reactive non-reactive Ag/Ab) [facility] virus Ab [Units/volume] in Serum by Immunoassay 2021-07-01 00:00:00 Test Item Value Reference Range Interpretation Comments ethnicity: (test code = other ethnicity:) race: (test code = race:) other hep C Ab. (S/co ratio) (test 0.09 S/co <0.80 code = hep C Ab. (S/co ratio)) hep. C Ab. (test code = hep. C non-reactive non-reactive Ab.) [facility]
--- NOTE | 2022-06-12 09:38 | ER ---
Nurse's Notes [facility] Name: Deyanira Valencia Age: 31 yrs Sex: Female : 1990 Arrival Date: 06/12/2022 Time: 09:05 Bed 20 Private MD: Diagnosis: Otitis media, unspecified, unspecified ear;Acute bronchospasm Presentation: 06/12 09:14 Chief complaint: Patient states: Cough x 8 months, brown sputum, had a chest x-ray jl7 Wednesday here, reports it was negative and MD prescribed Cefdinir but it's not helping. Left ear drainage x 1 year. Coronavirus screen: At this time, the client does not indicate any symptoms associated with coronavirus-19. Ebola Screen: No symptoms or risks identified at this time. Initial Sepsis Screen: Does the patient meet any 2 criteria? No. Patient's initial sepsis screen is negative. Does the patient have a suspected source of infection? No. Patient's initial sepsis screen is negative. Risk Assessment: Do you want to hurt yourself or someone else? Patient reports no desire to harm self or others. Onset of symptoms was December 2021. 09:14 Method Of Arrival: Ambulatory 7 09:14 Acuity: TONEY 3 jl7 Triage Assessment: 09:17 General: Appears in no apparent distress. uncomfortable, Behavior is calm, cooperative, jl7 appropriate for age. Pain: Complains of pain in left ear Pain currently is 7 out of 10 on a pain scale. Respiratory: Reports cough that is productive, persistent not auscultated in triage. 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 - Social history:: Smoking status: Patient denies any tobacco usage or history of. Screenin:04 [facility] ED Fall Risk Assessment (Adult) History of falling in the last 3 months, kr3 including since admission No falls in past 3 months (0 pts) Confusion or Disorientation No (0 pts) Intoxicated or Sedated No (0 pts) Impaired Gait No (0 pts) Mobility Assist Device Used No (0 pt) Altered Elimination No (0 pt) Score/Fall Risk Level 0 - 2 = Low Risk Oriented to surroundings, Maintained a safe environment, Educated pt \T\ family on fall prevention, incl call for assistance when getting out of bed, Assessed \T\ reinforced patient's understanding of fall precautions, Hourly rounding (assess needs \T\ fall precautionary measures) done. Abuse screen: Denies threats or abuse. Nutritional screening: No deficits noted. Tuberculosis screening: No symptoms or risk factors identified. Assessment: 10:03 Reassessment: Patient appears in no apparent distress at this time. Patient is alert, kr3 oriented x 3, equal unlabored respirations, skin warm/dry/pink. 10:05 Cardiovascular: Patient's skin is warm and dry. Respiratory: Airway is patent kr3 Respiratory effort is even, unlabored, Respiratory pattern is regular, symmetrical. Vital Signs: 09:14 BP 129 / 77; Pulse 91; Resp 17; Temp 98.1; Pulse Ox 99% on R/A; Weight 77.11 kg; Height jl7 5 ft. 0 in. ; Pain 7/10; 10:03 BP 128 / 74; Pulse 89; Resp 18; Temp 97.9(O); Pulse Ox 98% on R/A; kr3 09:14 Body Mass Index 33.20 (77.11 kg, 152.4 cm) jl7 09:14 Pain Scale: Adult [facility] ED Course: 09:05 Patient arrived in ED. mr 09:07 [facility] 09:07 Jacoby Fox MD is Attending Physician. jm 09:17 Triage completed. jl7 09:17 Arm band placed on right wrist. jl7 09:18 Bed in low position. Call light in reach. Side rails up X 1. kr3 09:37 Aicha Goyal MD is Referral Physician. jmm 09:40 Sandi March RN is Primary Nurse. kr3 10:04 No provider procedures requiring assistance completed. Patient did not have IV access kr3 during this emergency room visit. Administered Medications: 09:50 Drug: AZITHromycin PO 500 mg Route: PO; kr3 10:04 Follow up: Response: No adverse reaction kr3 Medication: 10:05 VIS not applicable for this client. kr3 Outcome: 09:38 Discharge ordered by . dileep 10:05 Discharged to home ambulatory. kr3 10:05 Condition: stable 10:05 Discharge instructions given to patient, Instructed on discharge instructions, follow up and referral plans. medication usage, Demonstrated understanding of instructions, follow-up care, medications, Prescriptions given X 1. 10:06 Patient left the ED. kr3 Signatures: Steve Bravo PA PA jmm Rivera, Mary mr Kerry Betancur RN RN jl7 Sandi March RN RN kr3
--- NOTE | 2022-06-12 09:38 | EDPHYS ---
Physician Documentation [facility] – [place], [place] Name: Deyanira Valencia Age: 31 yrs Sex: Female : 1990 Arrival Date: 06/12/2022 Time: 09:05 Bed 20 Private MD: ED Physician Jacoby Fox HPI: 06/12 09:34 This 31 yrs old Female presents to ER via Ambulatory with complaints of Cough, jmm Congestion, Ear Pain. 09:34 Onset: The symptoms/episode began/occurred gradually, 8 week(s) ago. Is a 31-year-old jmm female with no chronic medical conditions presents emerged part with complaints of cough beginning approximately 8 weeks ago along with left ear fullness. Patient recently visited the ED diagnosed with otitis media and prescribed cefdinir with no relief. Patient also complains of brown productive cough.. [employer]: 09:17 LMP 06/03/2022 jl7 Historical: - Allergies: 09:17 No Known Allergies; jl7 - Home Meds: 09:17 None [Active]; jl7 - PMHx: 09:17 None; jl7 - PSHx: 09:17 Bile duct repair; Cholecystectomy; jl7 - Immunization history:: Client reports having NOT received the Covid vaccine. - Social history:: Smoking status: Patient denies any tobacco usage or history of. ROS: 09:34 Constitutional: Negative for fever, chills, and weight loss, Cardiovascular: Negative jmm for chest pain, palpitations, and edema. 09:34 ENT: Positive for ear pain. 09:34 Respiratory: Positive for cough, wheezing. 09:34 All other systems are negative. Exam: 09:34 Constitutional: This is a well developed, well nourished patient who is awake, alert, jmm and in no acute distress. Head/Face: atraumatic. Eyes: EOMI, no conjunctival erythema appreciated 09:34 Neck: Trachea midline, Supple Chest/axilla: Normal chest wall appearance and motion. Cardiovascular: Regular rate and rhythm. No edema appreciated 09:34 Back: Normal ROM Skin: General appearance color normal MS/ Extremity: Moves all extremities, no obvious deformities appreciated, no edema noted to the lower extremities Neuro: Awake and alert Psych: Behavior is normal, Mood is normal, Patient is cooperative and pleasant 09:34 ENT: TM's: erythema, that is moderate, on the left, Posterior pharynx: erythema, that is mild. 09:34 Respiratory: the patient does not display signs of respiratory distress, Respirations: normal, Breath sounds: wheezing: that is mild, is scattered. Vital Signs: 09:14 BP 129 / 77; Pulse 91; Resp 17; Temp 98.1; Pulse Ox 99% on R/A; Weight 77.11 kg; Height jl7 5 ft. 0 in. ; Pain 7/10; 10:03 BP 128 / 74; Pulse 89; Resp 18; Temp 97.9(O); Pulse Ox 98% on R/A; kr3 09:14 Body Mass Index 33.20 (77.11 kg, 152.4 cm) jl7 09:14 Pain Scale: Adult jl7 MDM: 09:16 Patient medically screened. [facility] 09:36 Differential Diagnosis: Bronchitis Influenza Upper Respiratory Infection Otitis Media. [facility] Data reviewed: vital signs, nurses notes. I considered the following discharge prescriptions or medication management in the emergency department Medications were administered in the Emergency Department. See MAR. Historians other than the Patient: Mother. ED course: Patient is alert nontoxic in appearance in the ED. Will switch to azithromycin. Patient encouraged to follow-up with ENT. Otherwise given strict return precautions. Mother understood and agrees to plan of care. Patient understood and agrees to plan of care.. Administered Medications: 09:50 Drug: AZITHromycin PO 500 mg Route: PO; kr3 10:04 Follow up: Response: No adverse reaction kr3 Disposition: 14:49 Co-signature as Attending Physician, Jacoby Fox MD I reviewed the patient's care rt provided by the Advanced Practice Provider and agree with the diagnosis and treatment plan. Disposition Summary: 06/12/22 09:38 Discharge Ordered Location: Home [facility] Condition: Stable [facility] Diagnosis - Otitis media, unspecified, unspecified ear jmm - Acute bronchospasm [facility] Followup: [facility] - With: Aicha Goyal MD - When: 2 - 3 days - Reason: Recheck today's complaints, Continuance of care, Re-evaluation by your physician Discharge Instructions: - Discharge Summary Sheet jmm - Otitis Media, Adult m Forms: - Medication Reconciliation Form [facility] - Thank You Letter jm - Antibiotic Education m - Prescription Opioid Use [facility] Prescriptions: - Zithromax Z-Robert 250 mg Oral Tablet - take 1 tablet by ORAL route as directed for 5 days Day 1 - take two (2) tablets jm one time. Day 2, 3, 4 , 5 take one (1) tablet once daily.; 6 tablet; Refills: 0, Product Selection Permitted Signatures: Dispatcher [employer] EDMS Steve Bravo PA PA jmm Leal, Jahala, RN RN jl7 Sandi March RN RN kr3 Jacoby Fox MD MD rt Corrections: (The following items were deleted from the chart) 10:06 09:19 COVID-19/FLU A+B/RSV+MOL.LAB.BRZ ordered. EDMS EDMS
[2022-06-12] MEDS ORDERED: AZITHROMYCIN 250 MG TAB ONE (09:47)
[2022-06-12 10:26] VITALS: BP 128/74; TEMP 97.9; O2SAT 98
== END 2022-06-12 10:06 | disposition home or self-care (01) ==
LOC: ER 09:01
DX: J98.01 Acute bronchospasm (principal); H66.92 Otitis media, unspecified, left ear
CPT/HCPCS: 99283

== ENCOUNTER 2023-02-14 08:35 | Emergency (ER) | payer OTHER ==
--- OUTSIDE RECORDS SUMMARY | 2023-02-14 08:41 | XMS REPORT | Continuity of Care Document ---
:1990 Author Organization [facility] t Address [address] [facility] [address] [place] [address] Care Team Providers Name Role Phone Sharpless Primary Care Physician Jazzy Dominguez Attending Clinician Unavailable GC_Carlos Attending Clinician Unavailable Dana Nunn MD Attending Clinician DANA NUNN Attending Clinician Unavailable Jazzy Dominguez Attending Clinician [phone] GC_Charlotte Attending Clinician Unavailable Gabino Alexis Attending Clinician [phone] DAVID VAUGHN Attending Clinician Unavailable MARIANA WAITE Attending Clinician Unavailable Jazzy Dominguez Admitting Clinician Unavailable GC_Carlos Admitting Clinician Unavailable Dana Nunn MD Admitting Clinician DANA NUNN Admitting Clinician Unavailable GC_Charlotte Admitting Clinician Unavailable Payers Payer Name Policy Type Policy Number Effective Date Expiration Date Serena strong [facility] [id number] 2021 CHOICE (MEDICAID 00:00:00 REPLACEMENT - HMO) [...] Herpes 5-12 Medical simplex Simplex 00:00: 00 Injury of Injury of Disease Active 2012-[address] [facility] bile duct bile duct 0-28 [facility] Bile leak Bile leak Disease Active 2012-[address] [facility] Chest pain Chest [...] [facility] [place] NO KNOWN Drug Active Univers ALLERGIE Class ity of S [facility] Social History Social Habit Start Date Stop Date Quantity Comments Source ASSERTION 2021-04-23 [facility] 00:00:00 [facility] Sexual orientation [place] [facility] Alcohol intake 2015-09-02 2015-09-02 Current [facility] es 00:00:00 00:00:00 non-drinker of Medical Ce nter alcohol (finding) Sex Assigned At [birth year] [facility] kes 00:00:00 00:00:00 Medical Center Smoking Status Start Date Stop Date Source Never Smoker [facility] Tobacco smoking consumption unknown [facility] Medications Ordered Filled Start Stop Current Ordering [...] 7 days. oral route for 7 days. Vital Signs Vital Name Observation Time Observation Value Comments Source BP Diastolic 2022-02-26 00:00:00 62 mm[Hg] [facility] Height 2022-02-26 00:00:00 60 [in_i] [facility] BMI (Body Mass 2022-02-26 00:00:00 33.6 kg/m2 [facility] Medical Index) BP Systolic 2022-02-26 00:00:00 120 mm[Hg] [facility] Body Weight 2022-02-26 00:00:00 172 [lb_av] [facility] BP Diastolic 2022-01-23 00:00:00 80 mm[Hg] [facility] Height 2022-01-23 00:00:00 60 [in_i] [facility] BMI (Body Mass 2022-01-23 00:00:00 32.6 kg/m2 [facility] Medical Index) BP Systolic 2022-01-23 00:00:00 120 mm[Hg] [facility] Body Weight 2022-01-23 00:00:00 167 [lb_av] [facility] BP Diastolic 2022-01-06 00:00:00 80 mm[Hg] [facility] Height 2022-01-06 00:00:00 60 [in_i] [facility] BMI (Body Mass 2022-01-06 00:00:00 36.3 kg/m2 [facility] Medical Index) BP Systolic 2022-01-06 00:00:00 124 mm[Hg] [facility] Body Weight 2022-01-06 00:00:00 186 [lb_av] [facility] BP Diastolic 2021-12-31 00:00:00 64 mm[Hg] [facility] Height 2021-12-31 00:00:00 60 [in_i] [facility] BMI (Body Mass 2021-12-31 00:00:00 35.7 kg/m2 [facility] Medical Index) BP Systolic 2021-12-31 00:00:00 130 mm[Hg] [facility] Body Weight 2021-12-31 00:00:00 183 [lb_av] [facility] Heart rate 2021-12-26 15:00:00 76 /min [facility] Oxygen saturation in 2021-12-26 15:00:00 98 /min [facility] Arterial blood by [facility] Pulse oximetry Branch Systolic blood 2021-12-26 14:45:00 127 mm[Hg] Univer sity of pressure [facility] Diastolic blood 2021-12-26 14:45:00 76 mm[Hg] Unive rsity [facility] Body temperature 2021-12-26 12:00:00 36.89 Dannielle [facility] 2021-12-26 12:00:00 18 /min [facility] Body height 2021-12-26 12:00:00 152.4 cm [facility] Body weight 2021-12-26 12:00:00 82.101 kg [facility] BMI 2021-12-26 12:00:00 35.35 kg/m2 [facility] BP Diastolic 2021-12-25 00:00:00 60 mm[Hg] [facility] Height 2021-12-25 00:00:00 60 [in_i] [facility] BMI (Body Mass 2021-12-25 00:00:00 36.1 kg/m2 [facility] Medical Index) BP Systolic 2021-12-25 00:00:00 120 mm[Hg] [facility] Body Weight 2021-12-25 00:00:00 185 [lb_av] [facility] BP Diastolic 2021-12-17 00:00:00 78 mm[Hg] [facility] BP Systolic 2021-12-17 00:00:00 110 mm[Hg] [facility] Body Weight 2021-12-17 00:00:00 184 [lb_av] [facility] BP Diastolic 2021-12-03 00:00:00 66 mm[Hg] [facility] Height 2021-12-03 00:00:00 60 [in_i] [facility]w [facility] BMI (Body Mass 2021-12-03 00:00:00 35.3 kg/m2 [facility] Index) BP Systolic 2021-12-03 00:00:00 120 mm[Hg] [facility] Body Weight 2021-12-03 00:00:00 181 [lb_av] Jw M edical BP Diastolic 2021-11-19 00:00:00 58 mm[Hg] J[facility] M edical Height 2021-11-19 00:00:00 60 [in_i] [facility] BMI (Body Mass 2021-11-19 00:00:00 34.6 kg/m2 [facility] Medical Index) BP Systolic 2021-11-19 00:00:00 100 mm[Hg] Jw M edical Body Weight 2021-11-19 00:00:00 177 [lb_av] [facility] BP Diastolic 2021-11-05 00:00:00 70 mm[Hg] [facility] Height 2021-11-05 00:00:00 60 [in_i] [facility] BMI (Body Mass 2021-11-05 00:00:00 33.6 kg/m2 [facility] Medical Index) BP Systolic 2021-11-05 00:00:00 102 mm[Hg] [facility] Body Weight 2021-11-05 00:00:00 172 [lb_av] Jw M edical BP Diastolic 2021-10-22 00:00:00 60 mm[Hg] [facility] Height 2021-10-22 00:00:00 60 [in_i] [facility] BMI (Body Mass 2021-10-22 00:00:00 31.8 kg/m2 [facility] Medical Index) BP Systolic 2021-10-22 00:00:00 110 mm[Hg] Jw M edical Body Weight 2021-10-22 00:00:00 163 [lb_av] Jw M edical BP Diastolic 2021-09-24 00:00:00 68 mm[Hg] J[facility] M edical Height 2021-09-24 00:00:00 60 [in_i] [facility] BMI (Body Mass 2021-09-24 00:00:00 31.6 kg/m2 [facility] Medical Index) BP Systolic 2021-09-24 00:00:00 100 mm[Hg] [facility] Body Weight 2021-09-24 00:00:00 162 [lb_av] Jw M edical BP Diastolic 2021-08-26 00:00:00 72 mm[Hg] Jw M edical BP Systolic 2021-08-26 00:00:00 102 mm[Hg] [facility] M [facility] Body Weight 2021-08-26 00:00:00 158 [lb_av] Jw M edical BP Diastolic 2021-07-29 00:00:00 70 mm[Hg] [facility] M ed[facility] Height 2021-07-29 00:00:00 60 [in_i] [facility]w [facility] BMI (Body Mass 2021-07-29 00:00:00 30.1 kg/m2 [facility] Medical Index) BP Systolic 2021-07-29 00:00:00 124 mm[Hg] [facility] Body Weight 2021-07-29 00:00:00 154 [lb_av] [facility] BP Diastolic 2021-07-15 00:00:00 58 mm[Hg] [facility] M [facility] Height 2021-07-15 00:00:00 60 [in_i] [facility] BMI (Body Mass 2021-07-15 00:00:00 29.5 kg/m2 [facility] BP Systolic 2021-07-15 00:00:00 116 mm[Hg] [facility] Body Weight 2021-07-15 00:00:00 151 [lb_av] [facility] BP Diastolic 2021-07-01 00:00:00 64 mm[Hg] [facility] M [facility] Height 2021-07-01 00:00:00 60 [in_i] [facility]w [facility] BMI (Body Mass 2021-07-01 00:00:00 29.3 kg/m2 [facility] BP Systolic 2021-07-01 00:00:00 110 mm[Hg] [facility] M [facility] Body Weight 2021-07-01 00:00:00 150 [lb_av] [facility] Procedures Procedure Date / Time Performing Clinician Source Performed 80P04P2 2022-01-10 00:00:00 JOHN [facility] NOTICE OF PRIVACY 2021-12-26 11:37:32 Doctor Unassigned, No [facility] PRACTICES Name Medical Branch CONSENT/REFUSAL FOR 2021-12-26 11:37:17 [facility] Name [facility] ASSIGNMENT OF BENEFITS 2021-12-26 11:36:58 Doctor Unassigned, No [facility] Name Medical Branch ULTRASOUND RE TO 2021-11-19 [...] Date Details Comments Source Future Scheduled Test 2023-01-15 COVID-19 VACCINE [facility] 01:02:48 (#1) [code = COVID-19 VACCINE (#1)] Future Scheduled Test 2023-01-15 [facility] 01:02:48 malignant neoplasm of cervix (procedure) [code = 583037076] Future Scheduled Test 2023-01-15 INFLUENZA VACCINE [facility] 01:02:48 (#1) [code = INFLUENZA VACCINE (#1)] Future Scheduled Test 2022-06-08 Screening for [facility] 14:36:05 malignant neoplasm of cervix (procedure) [code = 267868890] Future Scheduled Test 2022-06-08 INFLUENZA VACCINE [facility] 14:36:05 [code = INFLUENZA VACCINE] Future Scheduled Test 2022-06-08 COVID-19 VACCINE [facility] 14:36:05 (#1) [code = COVID-19 VACCINE (#1)] Future Scheduled Test 2022-06-08 Screening for [facility] 14:36:05 malignant neoplasm of cervix (procedure) [code = 771356788] Future Scheduled Test 2022-06-08 INFLUENZA VACCINE [facility] 14:36:05 [code = INFLUENZA VACCINE] Future Scheduled Test 2022-06-08 COVID-19 VACCINE [facility] 14:36:05 (#1) [code = COVID-19 VACCINE (#1)] Diagnostic Test 2022-01-06 urinalysis, [facility] Pending 00:00:00 dipstick [code = urinalysis, dipstick] Encounters Start End Encounter Admission Attending Care Care Encounter Source Date/Time Date/Time Type Type Clinicians Facility Department ID 2022-01-14 Inpatient JH Dominguez [facility] [id number] [facility] 13:49:00 Sameen 08 [facility] 2022-02-26 2022-02-26 Sameen [facility] [id number] [facility] 00:00:00 00:00:00 Elina Dominguez MD: [address] [facility] [address], Office* [address], [place] [address] , Ph. 2022-02-25 2022-02-25 Outpatient GC_[facility]_ PRIV PRIV [id number] [facility] 00:00:00 00:00:00 Noorcolt [id number] [facility] 2022-02-25 2022-02-25 Outpatient GC_[facility]_ PRIV PRIV [id number] [facility] 00:00:00 00:00:00 Nooruddin [id number] [facility] 2022-02-25 2022-02-25 Outpatient GC_[facility]_ PRIV PRIV 237 [id number] [facility] 00:00:00 00:00:00 Noorudrayna [id number] [facility] teodoro 2022-02-16 2022-02-16 Outpatient GC_[facility]_ PRIV PRIV 237 [id number] [facility] 00:00:00 00:00:00 Nooruddin [id number] [facility] teodoro 2022-01-23 2022-01-23 Outpatient GC_[facility]_ PRIV PRIV 237 [id number] [facility] 00:00:00 00:00:00 Noorudrayna [id number] [facility] teodoro 2022-01-23 2022-01-23 Sameen [facility] [id number] [facility] 00:00:00 00:00:00 Elina Dominguez MD: [address] [facility] [address] [place], Office* [address], [place] [address] , Ph. 2022-01-22 2022-01-22 Outpatient GC_[facility]_ PRIV PRIV 237 [id number] [facility] 00:00:00 00:00:00 Nooruddin [id number] [facility] 2022-01-17 2022-01-17 Outpatient GC_[facility]_ PRIV PRIV 237 [id number] [facility] 00:00:00 00:00:00 Nooruddin [id number] [facility] 2022-01-15 2022-01-15 Outpatient GC_[facility]OM[facility]_ PRIV PRIV 237 [id number] [facility] 00:00:00 00:00:00 Noorudrayna [id number] [facility] 2022-01-09 2022-01-13 Inpatient EM Angelica [facility] OBPP [id number] [facility] 12:49:00 23:00:00 Sameen [facility] [place] 2022-01-06 2022-01-06 Sameen [facility] 18 [facility] 00:00:00 00:00:00 Elina Dominguez [facility] karen ARCOS: [address] [facility] Kevin [facility], Office* [address], [place] [address] , Ph. 2021-12-31 2021-12-31 Emergency EM Angelica [facility] MAGALI [id number] [facility] 12:36:00 16:04:00 Sameen 38 [facility] [place] 2021-12-31 2021-12-31 Sameen [facility] 12 [facility] 00:00:00 00:00:00 Elina Dominguez [facility] karen ARCOS: [address] [facility], Office* [address], [place] [address] , Ph. 2021-12-26 2021-12-26 [facility] [id number] Univers 06:50:00 10:15:00 Encounter [id number] [facility] [id number] [facility] 083 Branch 2021-12-26 2021-12-26 Outpatient P MIREYA, [facility] TORIE [id number] Univers 06:50:00 10:15:00 DANA yeung [facility] 2021-12-25 2021-12-25 Sameen [facility] 00:[facility]:00 00:00:00 Angelica [facility] karen ARCOS: [address] [facility] Kevin [facility], Office* [address], [place] [address] , Ph. 2021-12-17 2021-12-17 Sameen [facility] 00:00:00 00:00:00 Angelica [facility] karen ARCOS: [address] [facility], Office* [address], [place] [address] , Ph. 2021-12-07 2021-12-07 Outpatient GC_[facility]OM[facility]_ PRIV PRIV [id number] [facility] 00:00:00 00:00:00 Noorudrayna [id number] [facility] 2021-12-03 2021-12-03 Outpatient Nooruddin, PRIV PRIV [id number] 00:00:00 00:00:00 Same [id number] 2021-12-03 2021-12-03 Sameen [facility] 00:00:00 00:00:00 Angelica [facility] karen ARCOS: [address] GC_[facility]OMC_ Kevin [facility], Office* [address], [place] [address] , Ph. 2021-11-28 2021-11-28 Outpatient GC_SWHATBIC PRIV PRIV 237 [id number] [facility] 00:00:00 00:00:00 _Nooruddi [id number] [facility] 2021-11-19 2021-11-19 Outpatient Nooruddin, PRIV PRIV [id number] 00:00:00 00:00:00 Jazzy [id number] 2021-11-19 2021-11-19 Sameen [facility] 00:[facility]:00 00:00:00 Elina Dominguez MD: [address] [place], Office* [address], [place] [address] , Ph. 2021-11-07 2021-11-07 Outpatient GC_[facility]_ PRIV PRIV 237 [id number] [facility] 00:00:00 00:00:00 Nooruddin [id number] [facility] 2021-11-05 2021-11-05 Gabino [facility] 00:00:00 00:00:00 [facility] TOM Alexis MD: [address], [address], [place] [address] , Ph. 2021-11-05 2021-11-05 Outpatient Alexis, PRIV PRIV [id number] 00:00:00 00:00:00 Gabino [id number] Cody [id number] 2021-10-31 2021-10-31 Outpatient GC_[facility]_ PRIV PRIV 237 [id number] [facility] 00:00:00 00:00:00 Nooruddin [id number] [facility] 2021-10-22 2021-10-22 Outpatient GC_[facility]_ PRIV PRIV 237 [id number] [facility] 00:00:00 00:00:00 Nooruddin [id number] [facility] 2021-10-22 2021-10-22 Sameen [facility] [id number] [facility] 00:00:00 00:00:00 Elina Dominguez Me karen ARCOS: [address] [place], Office* [address], [place] [address] , Ph. 2021-10-22 2021-10-22 Outpatient Nooruddin, PRIV PRIV [id number] 00:00:00 00:00:00 Sameen [id number] 2021-09-30 2021-09-30 Outpatient GC_[facility]_ PRIV PRIV [id number] [facility] 00:00:00 00:00:00 Noorcolt [id number] [facility] 2021-09-24 2021-09-24 Outpatient GC_[facility]_ PRIV PRIV 237 [id number] [facility] 12:11:00 12:11:00 Noorudrayna [id number] [facility] 2021-09-24 2021-09-24 Sameen [facility] 06 [facility] 00:00:00 00:00:00 Angelica [facility] karen MD: [address] GC_[facility]OM[facility]_ [facility], Office* [address], [place] [address] , Ph. 2021-09-24 2021-09-24 Outpatient Nocelioudrayna, PRIV PRIV [id number] 00:00:00 00:00:00 Sameen [id number] 2021-09-18 2021-09-18 Outpatient GC_[facility]_ PRIV PRIV 237 [id number] [facility] 12:55:00 12:55:00 Noorcolt [id number] [facility] 2021-09-18 2021-09-18 Outpatient GC_[facility]OM[facility]_ PRIV PRIV 237 [id number] [facility] 12:55:00 12:55:00 Noorudrayna [id number] [facility] 2021-08-28 2021-08-28 Outpatient GC_[facility]_ PRIV PRIV [id number] [facility] 08:31:00 08:31:00 Noorudrayna [id number] [facility] 2021-08-26 2021-08-26 Outpatient GC_[facility]_ PRIV PRIV 237 [id number] [facility] 11:32:00 11:32:00 Noorcolt [id number] [facility] 2021-08-26 2021-08-26 Sameen [facility] [id number] [facility] 00:00:00 00:00:00 Angelica [facility] karen ARCOS: [address] GC_[facility]_ [address] [place], Office* [address], [place] [address] , Ph. 2021-08-26 2021-08-26 Outpatient Nooruddin, PRIV PRIV [id number] 00:00:00 00:00:00 Jazzy [id number] 2021-08-21 2021-08-21 Outpatient GC_SWHATBIC PRIV PRIV [id number] [facility] 03:23:00 03:23:00 _Nooruddi [id number] [facility] 2021-08-21 2021-08-21 Outpatient GC_[facility]OM[facility]_ PRIV PRIV [id number] [facility] 03:23:00 03:23:00 Nooruddin [id number] [facility] 2021-08-19 2021-08-19 Outpatient GC_SWHATBIC PRIV PRIV 237 [id number] [facility] 10:21:00 10:21:00 _Nooruddi [id number] [facility] 2021-07-31 2021-07-31 Outpatient GC_[facility]OM[facility]_ PRIV PRIV 237 [id number] [facility] 11:07:00 11:07:00 Nooruddin [id number] [facility] 2021-07-29 2021-07-29 Outpatient GC_[facility]OM[facility]_ PRIV PRIV [id number] [facility] 04:05:00 04:05:00 Nooruddin [id number] [facility] 2021-07-29 2021-07-29 Sameen [facility] 10 [facility] 00:00:00 00:00:00 Angelica [facility] karen ARCOS: 7[address] GC_[facility]_ Kevin [address] [place], Office* [address], [place] [address] , Ph. 2021-07-29 2021-07-29 Outpatient Nooruddin, PRIV PRIV [id number] 00:00:00 00:00:00 Jazzy [id number] 2021-07-23 2021-07-23 Outpatient GC_[facility]_ PRIV PRIV [id number] [facility] 07:00:00 07:00:00 Noorudrayna [id number] [facility] 2021-07-23 2021-07-23 Outpatient GC_[facility]AOMC_ PRIV PRIV [id number] [facility] 07:00:00 07:00:00 Nooruddin [id number] [facility] 2021-07-22 2021-07-22 Outpatient GC_[facility]OM[facility]_ PRIV PRIV 237 [id number] [facility] 02:09:00 02:09:00 Nooruddin [id number] [facility] 2021-07-15 2021-07-15 Outpatient GC_[facility]OMC_ PRIV PRIV [id number] [facility] 02:31:00 02:31:00 Noorudrayna [id number] [facility] 2021-07-15 2021-07-15 Sameen [facility] 00:00:00 00:00:00 Angelica [facility] karen MD: 7900 GC_[facility]_ [facility], Office* [address], [place] [address] , Ph. 2021-07-15 2021-07-15 Outpatient Nooruddin, PRIV PRIV [id number] 00:00:00 00:00:00 Jazzy [id number] 2021-07-14 2021-07-14 Outpatient GC_[facility]_ PRIV PRIV [id number] [facility] 01:31:00 01:31:00 Nooruddin [id number] [facility] 2021-07-10 2021-07-10 Outpatient GC_[facility]OM[facility]_ PRIV PRIV 237 [id number] [facility] 01:29:00 01:29:00 Noorudrayna [id number] [facility] 2021-07-09 2021-07-09 Outpatient GC_[facility]OM[facility]_ PRIV PRIV [id number] [facility] 07:54:00 07:54:00 Nooruddin [id number] [facility] 2021-07-01 2021-07-01 Outpatient GC_[facility]_ PRIV PRIV [id number] [facility] 02:59:00 02:59:00 Nooruddin [id number] [facility] 2021-07-01 2021-07-01 Outpatient Angelica, PRIV PRIV [id number] 00:00:00 00:00:00 Sameen [id number] 2021-07-01 2021-07-01 Sameen [facility] 12 [facility] 00:00:00 00:00:00 Elina Dominguez [facility] karen MD: 5500 GC_[facility]_ [facility], Office* [address], [place] [address] , Ph. 2021-06-30 2021-06-30 Outpatient GC_[facility]_ PRIV PRIV [id number] [facility] 04:43:00 04:43:00 Nooruddin [id number] [facility] 2021-06-27 2021-06-27 Outpatient GC_[facility]_ PRIV PRIV [id number] [facility] 04:12:00 04:12:00 Nooruddin [id number] [facility] 2021-06-20 2021-06-20 Outpatient GC_[facility]_ PRIV PRIV [id number] [facility] 12:04:00 12:04:00 Nooruddin [id number] [facility] 2021-06-03 2021-06-03 Outpatient GC_[facility]_ PRIV PRIV [id number] [facility] 10:20:00 10:20:00 Nooruddin [id number] [facility] 2012-09-20 2012-09-20 Outpatient JH VAUGHN [facility] [id number] [place] 06:13:00 06:13:00 DAVID -[id number] [facility] 2012-07-28 2012-07-28 Emergency ER RAVINDRA [facility] [id number] [place] 21:12:00 23:40:00 MARIANA [id number] [facility] Results Test Description Test Time Test Comments Results Result Comments Source SURGICAL 2022-01-27 16:46:00 Test Item Value Reference Range Interpretation Comme nts SURGICAL RUN DATE: (test 01/27/22 [facility] PAGE 1 RUN TIME: 1646 Specimen Inquiry RUN USER: INTERFACE code = PATIENT: ) HIEU LOPEZ LOC: BE U #: [id number] AGE/SX: 31/F ROOM: [facility] RE01/09/22REG DR: Sa vic Dominguez MD : 89 BED: A DIS: 01/13/22 STATUS: DIS IN TLOC: SPEC #: [id number] RECD: STATUS: VICKY ROSA #: [id number] EZIO: 01/10/22- SUBM DR: Jazzy Dominguez MD ENTERED: 01/12/22 SP TYPE: SURGICAL OTHR DR: ORDERED: ANATOMIC SPEC, SPEC TRACK, [id number] PROCEDURES: 883 07 (01/12/22) TISSUES: A. PLACENTA, [...] DESCRIPTION Vishal kelly, labeled with Patient's name, , MRN [...] beefy parenchyma; no lesionsare gr ossly identified. Double Needle Operator sections submitted as follows: A1: Membrane roll and cordA2-4: Disc cros s-sections.XZ 01/26/22 Technical component performed at [facility], [place], [place] [address] Unless gross only, the diagnosis is based upon microscopic examination.Immunohistochemi stry: This test was developed and its performance characteristicsdetermined by this laboratory. It has n ot been approved nor does it need approval by the CONTINUED ON NEXT PAGE RUN DATE: 01/27/22 Arnold Flowers PAGE 2 RUN TIME: 1645 Specimen Inquiry RUN USER: INTERFACE SPEC #: [id number] PATIENT: HIEU LOPEZ #[id number] (Continued) GROSS DESCRIPTION (Continued ) FDA. [...] 01/27/22 1646 END OF REPORT COMPREHENSIVE METABOLIC [id number] 11:21:00 Test Item Value Reference Range Interpretation [...] ADVISED SHE WILL DRAW THIS PATIENT.CBC W/AUTO [id number] 11:11:00 Test Item Value Reference Range Interpretation [...] WILL DRAW THIS PATIENT.- XR ABDOMEN 1 [id number] 00:00:00 [facility] JOHN HIEUMONICA GLOVER : 1990 Sex: F Patient Name: HIEU LOPEZ Unit No: [id number] EXAMS: CPT CODE: [id number] XR ABDOMEN 1 V 99314 PROCEDURE INFORMATION: Exam: XR Abdomen Exam date [...] cardiac silhouette is magnified in the AP projection.Lungs: Clear lung bases. Pleural spaces: No pleural fluid. Gastrointestinal tract: Diffuse bowel airdistention without pneumatosis. Low volume air is identified [...] and signed by: Rebel Fuchs MD CC: Jazyz Dominguez MD Technologist: Rod Johnson, RT Trnscrbd D/ (101) GCD.CPS Orig Print D/T: S: 01/12/2022 (1019) [facility] NAME: HIEU LOPEZ Radiology Department PHYS: MARICEL.Burton - Jazzy Dominguez [address] : 1990 AGE: 31 SEX: F [place], [place] [address] LOC: [id number] PHONE #: [phone] EXAM DATE: 01/12/2022 STATUS: ADM IN FAX #: [phone] RAD NO: Page 1 Signed ReportHGB [id number] 12:18:00 Test Item Value Reference Range Interpretation Comments HEMOGLOBIN (test code = HGB) 10.5 g/dL 10.1-13.8 N HEMATOCRIT (test code = HCT) 30.5 % 32.5-41.8 L UR PROTEIN/CREATININE [id number] 00:41:00 Test Item Value Reference Range Interpretation Comments UR PROTEIN RANDOM (test code = 246.5 mg/dL PROTU) UR CREATININE RANDOM (test code 130.3 mg/dL = CREATU) PROTEIN/CREATININE RATIO (test 1.9 mg/gcrea <200 code = P/CRATIO) COMPREHENSIVE METABOLIC [id number] 22:33:00 Test Item Value Reference Range Interpretation [...] H code = ALKP) AG HEPATITIS B [id number] 14:27:00 Test Item Value Reference Range Interpretation Comments AG HEPATITIS B SURFACE (test code NONREACTIVE NONREACTIVE = HBSAG) AB HEPATITIS C [id number] 14:27:00 Test Item Value Reference Range Interpretation Comments AB HEPATITIS C (test code = NONREACTIVE NONREACTIVE HCVAB) SIGNAL TO CUTOFF (test code = 0.03 <0.80 N CUTOFF) AB [id number] 14:27:00 Test Item Value Reference Range Interpretation Comments AB TREPONEMA (test code = TREPAB) NONREACTIVE NONREACTIVE AB HIV 1 14:27:00 Test Item Value Reference Range Interpretation Comments AB HIV 1 2 (test NONREACTIVE NONREACTIVE Done by [facility] code = [id number]) 4th Gen HIV Ag/Ab Combo Screen CBC W/AUTO [id number] 13:17:00 Test Item Value Reference Range Interpretation [...] NORMAL NORMAL code = PLTMR) RUPTURE OF [id number] 12:23:00 Test Item Value Reference Range Interpretation Comments RUPTURE OF MEMBRANES (test code = RUPTURED ROM) Urinalysis macro (dipstick) panel - [id number] 13:27:00 Test Item Value Reference Range Interpretation Comments Leukocytes (test code = Leukocytes) Negative Nitrite (test code = Nitrite) negative Protein (test code = Protein) Trace Glucose (test code = Glucose) Negative [facility]inal[facility] macro (dipstick) panel - [id number] 09:58:00 Test Item Value Reference Range Interpretation Comments Leukocytes (test code = Leukocytes) Negative Nitrite (test code = Nitrite) negative Protein (test code = Protein) Negative Glucose (test code = Glucose) Negative [facility] MedicalUrinalysis macro (dipstick) panel - [id number] 09:58:00 Test Item Value Reference Range Interpretation Comments Leukocytes (test code = Leukocytes) Negative Nitrite (test code = Nitrite) negative Protein (test code = Protein) Negative Glucose (test code = Glucose) Negative [facility] MedicalRUPTURE OF [id number] 15:32:00 Test Item Value Reference Range Interpretation Comments RUPTURE OF MEMBRANES (test code NON-RUPTURED = ROM) - US [id number] 00:00:00 [facility] : 1990 Sex: F Patient Name: HIEU LOPEZ Unit No: [id number] EXAMS: CPT CODE: [id number] [place] [address]132 PROCEDURE INFORMATION: Exam: US , Limited Exam [...] Orig Print D/T: S: 12/31/2021 (1418) [facility] NAME: HIEU LOPEZ Radiology Department PHYS: [id number].02 - Jazzy Dominguez [address] : 1990 AGE: 31 SEX: F [place], [place] [address] LOC: JacMAGALI PHONE #: [phone] EXAM DATE: 12/31/2021 STATUS: REG ER FAX #: [phone] RAD NO: Page 1 Signed Report Patient Name: HIEU LOEPZ Unit No: [id number] EXAMS: CPT CODE: [id number] [place] L[place] [address]27 (Continued) [facility] NAME: HIEU LOPEZ ADALBERTO Radiology Department PHYS: Jazzy Salvador [address] : 1990 AGE: 31 SEX: F [place], [place] [address] LOC: F.MAGALI PHONE #: [phone] EXAM DATE: 12/31/2021 STATUS: REG ER FAX #: [phone] RAD NO: Page 2 Signed Report Urinalysis macro (dipstick) panel - [id number] 16:19:00 Test Item Value Reference Range Interpretation Comments Leukocytes (test code = Leukocytes) Negative Nitrite (test code = Nitrite) negative Protein (test code = Protein) Trace Glucose (test code = Glucose) Negative [facility]inalysis macro (dipstick) panel - [id number] 16:19:00 Test Item Value Reference Range Interpretation Comments Leukocytes (test code = Leukocytes) Negative Nitrite (test code = Nitrite) negative Protein (test code = Protein) Trace Glucose (test code = Glucose) Negative [facility] MedicalUrinalysis macro (dipstick) panel - [id number] 16:19:00 Test Item Value Reference Range Interpretation Comments Leukocytes (test code = Leukocytes) Negative Nitrite (test code = Nitrite) negative Protein (test code = Protein) Trace Glucose (test code = Glucose) Negative [facility] MedicalUrinalysis macro (dipstick) panel - [id number] 16:19:00 Test Item Value Reference Range Interpretation Comments Leukocytes (test code = Leukocytes) Negative Nitrite (test code = Nitrite) negative Protein (test code = Protein) Trace Glucose (test code = Glucose) Negative [facility] MedicalStreptococcus agalactiae [Presence] in Specimen by Organism specific [id number] 00:00:00 Test Item Value Reference Range Interpretation Comments culture, genital (strep B) (test negative negative code = culture, genital (strep B)) [facility] MedicalStreptococcus agalactiae [Presence] in Specimen by Organism specific [id number] 00:00:00 Test Item Value Reference Range Interpretation Comments culture, genital (strep B) (test negative negative code = culture, genital (strep B)) [facility] MedicalStreptococcus agalactiae [Presence] in Specimen by Organism specific [id number] 00:00:00 Test Item Value Reference Range Interpretation Comments culture, genital (strep B) (test negative negative code = culture, genital (strep B)) [facility] MedicalStreptococcus agalactiae [Presence] in Specimen by Organism specific [id number] 00:00:00 Test Item Value Reference Range Interpretation Comments culture, genital (strep B) (test negative negative code = culture, genital (strep B)) [facility] MedicalUrinalysis macro (dipstick) panel - [id number] 15:55:00 Test Item Value Reference Range Interpretation Comments Leukocytes (test code = Leukocytes) Negative Nitrite (test code = Nitrite) negative Protein (test code = Protein) Trace Glucose (test code = Glucose) Negative [facility] MedicalUrinalysis macro (dipstick) panel - [id number] 15:55:00 Test Item Value Reference Range Interpretation Comments Leukocytes (test code = Leukocytes) Negative Nitrite (test code = Nitrite) negative Protein (test code = Protein) Trace Glucose (test code = Glucose) Negative [facility] MedicalUrinalysis macro (dipstick) panel - [id number] 15:55:00 Test Item Value Reference Range Interpretation Comments Leukocytes (test code = Leukocytes) Negative Nitrite (test code = Nitrite) negative Protein (test code = Protein) Trace Glucose (test code = Glucose) Negative [facility] MedicalReagin Ab [Presence] in Serum by [id number] 00:00:00 Test Item Value Reference Range Interpretation Comments RPR (test code = RPR) non-reactive non-reactive [facility] MedicalHIV 1+2 Ab+HIV1 p24 Ag [Presence] in Serum or Plasma by [id number] 00:00:00 Test Item Value Reference Range Interpretation Comments HIV Ag/Ab (test code = HIV non-reactive non-reactive Ag/Ab) [facility] MedicalReagin Ab [Presence] in Serum by [id number] 00:00:00 Test Item Value Reference Range Interpretation Comments RPR (test code = RPR) non-reactive non-reactive [facility] MedicalHIV 1+2 Ab+HIV1 p24 Ag [Presence] in Serum or Plasma by [id number] 00:00:00 Test Item Value Reference Range Interpretation Comments HIV Ag/Ab (test code = HIV non-reactive non-reactive Ag/Ab) [facility] MedicalReagin Ab [Presence] in Serum by [id number] 00:00:00 Test Item Value Reference Range Interpretation Comments RPR (test code = RPR) non-reactive non-reactive [facility]HIV 1+2 Ab+HIV1 p24 Ag [Presence] in Serum or Plasma by [id number] 00:00:00 Test Item Value Reference Range Interpretation Comments HIV Ag/Ab (test code = HIV non-reactive non-reactive Ag/Ab) [facility] MedicalChlamydia trachomatis+Neisseria gonorrhoeae rRNA [Presence] in Urine by [id number] 00:00:00 Test Item Value Reference Range Interpretation Comments aptima combo 2 urine (CT) (test code = CT neg negative aptima combo 2 urine (CT)) aptima combo 2 urine (GC) (test code = GC neg negative aptima combo 2 urine (GC)) [facility] MedicalChlamydia trachomatis+Neisseria gonorrhoeae rRNA [Presence] in Urine by [id number] 00:00:00 Test Item Value Reference Range Interpretation Comments aptima combo 2 urine (CT) (test code = CT neg negative aptima combo 2 urine (CT)) aptima combo 2 urine (GC) (test code = GC neg negative aptima combo 2 urine (GC)) [facility] MedicalChlamydia trachomatis+Neisseria gonorrhoeae rRNA [Presence] in Urine by [id number] 00:00:00 Test Item Value Reference Range Interpretation Comments aptima combo 2 urine (CT) (test code = CT neg negative aptima combo 2 urine (CT)) aptima combo 2 urine (GC) (test code = GC neg negative aptima combo 2 urine (GC)) [facility] MedicalChlamydia trachomatis+Neisseria gonorrhoeae rRNA [Presence] in Urine by [id number] 00:00:00 Test Item Value Reference Range Interpretation Comments aptima combo 2 urine (CT) (test code = CT neg negative aptima combo 2 urine (CT)) aptima combo 2 urine (GC) (test code = GC neg negative aptima combo 2 urine (GC)) [facility] panel - Blood by Automated [id number] 00:00:00 Test Item Value Reference Range Interpretation [...] code = baso #) 0.0 10 0.0-0.2 [facility] panel - Blood by Automated [id number] 00:00:00 Test Item Value Reference Range Interpretation [...] code = baso #) 0.0 10 0.0-0.2 [facility] panel - Blood by Automated [id number] 00:00:00 Test Item Value Reference Range Interpretation [...] code = baso #) 0.0 10 0.0-0.2 [facility] panel - Blood by Automated [id number] 00:00:00 Test Item Value Reference Range Interpretation [...] 0.0-0.2 [facility] MedicalUrinalysis macro (dipstick) panel - [id number] 14:51:00 Test Item Value Reference Range Interpretation Comments Leukocytes (test code = Leukocytes) Negative Nitrite (test code = Nitrite) negative Protein (test code = Protein) Negative Glucose (test code = Glucose) Negative [facility] MedicalUrinalysis macro (dipstick) panel - [id number] 14:51:00 Test Item Value Reference Range Interpretation Comments Leukocytes (test code = Leukocytes) Negative Nitrite (test code = Nitrite) negative Protein (test code = Protein) Negative Glucose (test code = Glucose) Negative [facility] MedicalUrinalysis macro (dipstick) panel - [id number] 14:51:00 Test Item Value Reference Range Interpretation Comments Leukocytes (test code = Leukocytes) Negative Nitrite (test code = Nitrite) negative Protein (test code = Protein) Negative Glucose (test code = Glucose) Negative [facility] MedicalUrinalysis macro (dipstick) panel - [id number] 10:42:38 Test Item Value Reference Range Interpretation Comments Protein (test code = Protein) Negative Glucose (test code = Glucose) Negative [facility] MedicalUrinalysis macro (dipstick) panel - [id number] 10:42:38 Test Item Value Reference Range Interpretation Comments Protein (test code = Protein) Negative Glucose (test code = Glucose) Negative [facility]Urinalysis macro (dipstick) panel - [id number] 10:42:38 Test Item Value Reference Range Interpretation Comments Protein (test code = Protein) Negative Glucose (test code = Glucose) Negative [facility]Urinalysis macro (dipstick) panel - [id number] 10:42:38 Test Item Value Reference Range Interpretation Comments Protein (test code = Protein) Negative Glucose (test code = Glucose) Negative [facility]Urinalysis macro (dipstick) panel - [id number] 14:19:00 Test Item Value Reference Range Interpretation Comments Leukocytes (test code = Leukocytes) Negative Nitrite (test code = Nitrite) negative Protein (test code = Protein) Negative Glucose (test code = Glucose) Negative [facility]Urinalysis macro (dipstick) panel - [id number] 12:33:00 Test Item Value Reference Range Interpretation Comments Leukocytes (test code = Leukocytes) Negative Nitrite (test code = Nitrite) negative Protein (test code = Protein) Negative Glucose (test code = Glucose) Negative [facility] MedicalGlucose [Mass/volume] in Serum or Plasma --1 hour post dose [id number] 00:00:00 Test Item Value Reference Range Interpretation Comments g.T.T. 1HR(50) (test code = g.T.T. 133 mg/dL <140 1HR(50)) [facility] MedicalGlucose [Mass/volume] in Serum or Plasma --1 hour post dose [id number] 00:00:00 Test Item Value Reference Range Interpretation Comments g.T.T. 1HR(50) (test code = g.T.T. 133 mg/dL <140 1HR(50)) [facility] panel - Blood by Automated [id number] 00:00:00 Test Item Value Reference Range Interpretation [...] code = baso #) 0.0 10 0.0-0.2 [facility] panel - Blood by Automated [id number] 00:00:00 Test Item Value Reference Range Interpretation [...] code = baso #) 0.0 10 0.0-0.2 [facility] - [id number] 11:12:00 Test Item Value Reference Range Interpretation Comments Leukocytes (test code = Leukocytes) Negative Nitrite (test code = Nitrite) negative Protein (test code = Protein) Negative Glucose (test code = Glucose) Negative [facility] 1- aptima [id number] 00:00:00 Test Item Value Reference Range Interpretation Comments hsv 1- aptima tube (test code = hsv detected not detected A 1- aptima tube) [facility] 2- aptima [id number] 00:00:00 Test Item Value Reference Range Interpretation Comments hsv 2- aptima tube (test code = not detected not detected hsv 2- aptima tube) [facility] 1- aptima [id number] 00:00:00 Test Item Value Reference Range Interpretation Comments hsv 1- aptima tube (test code = hsv detected not detected A 1- aptima tube) [facility] 2- aptima [id number] 00:00:00 Test Item Value Reference Range Interpretation Comments hsv 2- aptima tube (test code = not detected not detected hsv 2- aptima tube) [facility]mk[facility]Hkeva-0-Xdvohjclkye [Mass/volume] in Serum or [id number] 00:00:00 Test Item Value Reference Range Interpretation Comments maternal serum AFP screen (test code negative = maternal serum AFP screen) [facility]dipstick) panel - [id number] 09:11:00 Test Item Value Reference Range Interpretation Comments Leukocytes (test code = Leukocytes) Negative Nitrite (test code = Nitrite) negative Protein (test code = Protein) Trace Glucose (test code = Glucose) Negative [facility]Urinalysis macro (dipstick) panel - [id number] 09:11:00 Test Item Value Reference Range Interpretation Comments Leukocytes (test code = Leukocytes) Negative Nitrite (test code = Nitrite) negative Protein (test code = Protein) Trace Glucose (test code = Glucose) Negative [facility]Urinalysis macro (dipstick) panel - [id number] 10:27:00 Test Item Value Reference Range Interpretation Comments Leukocytes (test code = Leukocytes) Negative Nitrite (test code = Nitrite) negative Protein (test code = Protein) Negative Glucose (test code = Glucose) Negative [facility] Medicalpap, LB + HR [id number] 00:00:00 Test Item Value Reference Range Interpretation Comments Pap, liquid-based (test code = Pap, nilm nilm liquid-based) [facility]pap, LB + HR [id number] 00:00:00 Test Item Value Reference Range Interpretation Comments Pap, liquid-based (test code = Pap, nilm nilm liquid-based) [facility] MedicalChlamydia trachomatis and Neisseria gonorrhoeae rRNA panel - Specimen by [employer] with probe [id number] 00:00:00 Test Item Value Reference Range Interpretation Comments aptima combo 2 swab (CT) (test code = CT neg negative aptima combo 2 swab (CT)) aptima combo 2 swab (GC) (test code = GC neg negative aptima combo 2 swab (GC)) [facility] MedicalChlamydia trachomatis and Neisseria gonorrhoeae rRNA panel - Specimen by [employer] with probe [id number] 00:00:00 Test Item Value Reference Range Interpretation Comments aptima combo 2 swab (CT) (test code = CT neg negative aptima combo 2 swab (CT)) aptima combo 2 swab (GC) (test code = GC neg negative aptima combo 2 swab (GC)) [facility] MedicalHemoglobin electrophoresis panel in [id number] 00:00:00 Test Item Value Reference Range Interpretation Comments Hb A (test code = 97.3 % 96.7-97.8 Hb A) Hb A2 (test code = 2.7 % 2.2-3.2 Hb A2) Hb C (test code = not detected not detected Hb C) Hb F (test code = not detected See_Comment [Automate d message] Hb F) The system [employer] generated this result transmitted ref erence range: [...] (IgG)) [facility] MedicalBacteria identified in Urine by [id number] 00:00:00 Test Item Value Reference Range Interpretation [...] (test code = WBC, 0-4 0-4 urine) [facility] 1995 panel - Serum and [id number] 00:00:00 Test Item Value Reference Range Interpretation [...] this result as normal/abnormal . [facility] MedicalHem[facility] electrophoresis panel in [id number] 00:00:00 Test Item Value Reference Range Interpretation Comments Hb A (test code = 97.3 % 96.7-97.8 Hb A) Hb A2 (test code = 2.7 % 2.2-3.2 Hb A2) Hb C (test code = not detected not detected Hb C) Hb F (test code = not detected See_Comment [Automate d message] Hb F) The system [employer] generated this result transmitted ref erence range: <or=0.5. The reference range was not used to interpr et this result as normal/abnormal . Hb other (test not detected not detected code = Hb other) Hb S (test code = not detected not detected Hb S) [facility] Medicalimm[facility]non-imm varicella IgG Ab.2021-07-04 00:00:00 Test Item Value Reference Range Interpretation Comments varicella zos. (IgG) (test code = immune immune varicella zos. (IgG)) [facility] MedicalBacteria identified in Urine by [id number] 00:00:00 Test Item Value Reference Range Interpretation [...] (test code = WBC, 0-4 0-4 urine) [place] [address] panel - Serum and [id number] 00:00:00 Test Item Value Reference Range Interpretation [...] normal/abnormal . [facility] MedicalHemoglobin electrophoresis panel in [id number] 00:00:00 Test Item Value Reference Range Interpretation Comments Hb A (test code = 97.3 % 96.7-97.8 Hb A) Hb A2 (test code = 2.7 % 2.2-3.2 Hb A2) Hb C (test code = not detected not detected Hb C) Hb F (test code = not detected See_Comment [Automate d message] Hb F) The system [employer] generated this result transmitted ref erence range: [...] (IgG)) [facility] MedicalBacteria identified in Urine by [id number] 00:00:00 Test Item Value Reference Range Interpretation [...] (test code = WBC, 0-4 0-4 urine) [place] [address] panel - Serum and [id number] 00:00:00 Test Item Value Reference Range Interpretation [...] to interpret this result as normal/abnormal . [facility]Hemoglobin A1c/Hemoglobin.total in [id number] 00:00:00 Test Item Value Reference Range Interpretation Comments Hemoglobin A1c/Hemoglobin.total in 4.9 % 4.0-5.6 Blood (test code = 4548-4) [facility] - Serum or [id number] 00:00:00 Test Item Value Reference Range Interpretation [...] 151.823 >60.000 (test code = eGFR mL/min/1.73A? equatorial guine[place]) [facility]Hemoglobin A1c/Hemoglobin.total in [id number] 00:00:00 Test Item Value Reference Range Interpretation Comments Hemoglobin A1c/Hemoglobin.total in 4.9 % 4.0-5.6 Blood (test code = 4548-4) [facility] - Serum or [id number] 00:00:00 Test Item Value Reference Range Interpretation [...] 151.823 >60.000 (test code = eGFR mL/min/1.73A? equatorial guinean) [facility]Hemoglobin A1c/Hemoglobin.total in [id number] 00:00:00 Test Item Value Reference Range Interpretation Comments Hemoglobin A1c/Hemoglobin.total in 4.9 % 4.0-5.6 Blood (test code = 4548-4) [facility] panel - Serum or [id number] 00:00:00 Test Item Value Reference Range Interpretation [...] 151.823 >60.000 (test code = eGFR mL/min/1.73A? equatorial guinean) [facility]HIV 1+2 Ab+HIV1 p24 Ag [Presence] in Serum or Plasma by [id number] 00:00:00 Test Item Value Reference Range Interpretation [...] Ag [Presence] in Serum or Plasma by [id number] 00:00:00 Test Item Value Reference Range Interpretation [...] Ag [Presence] in Serum or Plasma by [id number] 00:00:00 Test Item Value Reference Range Interpretation Comments ethnicity: (test code = other ethnicity:) race: (test code = race:) other HIV Ag/Ab (test code = HIV non-reactive non-reactive Ag/Ab) [facility] MedicalHepatitis C virus Ab [Units/volume] in Serum by Immunoassay 2021-07-01 00:00:00 Test Item Value Reference Range Interpretation Comments ethnicity: (test code = other ethnicity:) race: (test code = race:) other hep C Ab. (S/co ratio) (test 0.09 S/co <0.80 code = hep C Ab. (S/co ratio)) hep. C Ab. (test code = hep. C non-reactive non-reactive Ab.) [facility] Medical Notes Date/Time Note Provider Source 2022-01-13 18:30:00 [id number]:30:00 [facility]OB Disch PostpartumREPORT#:[id number] REPORT STATUS: SignedDATE:01/13/22 TIME: 183 PATIENT: HIEU LOPEZ UNIT #: [id number]#: [id number] [address] [birth year] AGE : 31 SEX: F ATTEND: Jazzy Dominguez [facility] AUTHOR: Jazzy Dominguez MD * ALL edits or amendments must be made on the electronic/computer document * Subjective SubjectiveAdmission EGA: Weeks: 39 Days: 2EGA at delivery (wks/days): 39 weeks (3/7)Status/day: post (d1) Objective Physical ExamLungs: unlabored breathingNeuro: Exam: alert, oriented x3, normal speechIncision site: well approximate d edgesLower extremities: Edema: trace Discharge Summary GeneralAssessment: nml progressDate of admission:Date of admission: 01/09/22 Admission diagnosis: genital herpes, PROM-termHospital course: augmentation of labor, primary LTCS in labor, epidural anesthesia, nml postop/postpart care, Post op ileusProcedures: epidural anesthesia, primary CS deliveryDischarg e condition: stableDischarge to: Home/Self CareDischarge diagnosis: full-term uncomp delivery, post op ileusDischarge management: les s than 30 minsBaby A: status: live born Gender: male 1 minute: 3 5 minutes: 9 Anomalies:nonePlan: routine care, circumcision tomorrow, discharge tomorrow Discharge InstructionsInstructions: routine inst r sheet given, instr and warnings rev'd, specific instr as notedDiet: Regular, BlandActivity: Do not Submerge Incision, No Driving, No Intercours e for 6 Wks, No Lifting >10lbsAdditional discharge routines: Attending Follow-Up, Wound/Dressing CareWound/dressing care: Do not submerge incision, Keep wound clean and dry, OK to shower tomorrowContraception discussed: abstinence for 4-6 weeks, will discuss at PP visitDischarge meds:Continue taking these medications:PNV WITH FE FUMARATE/FA () 27 MG IRON-800 MCG TAB 1 TABLET ORAL DAILY. Start taking the following new medications:ACETAMINOPHEN (TYLENOL) 325 MG TAB 650 MILLIGRAM ORAL EVERY 6 HOURS NEEDED. as needed for PAIN SCALE 1-3 (USE 2ND) Qty = 30 No Refills IBUPROFEN (MOTRIN) 600 MG TAB 600 MILLIGRAM ORAL EVERY 6 HOURS NEEDED. as neede d for PAIN SCALE 1-3 (USE 1ST) Qty = 30 No Refills OXYCODONE HCL (OXYCODONE) 5 MG TAB 5 MILLIGRAM ORAL EVERY 4 HOURS NEEDED. as needed for MODERATE PAIN (SCALE 4-6) Qty = 15 No Refills DOCUSATE SODIUM (COLACE) 100 MG CAP 200 MILLIGRA M ORAL BEDTIME. Qty = 60 No Refills Prescriptions: e-prescribe Add'l Follow-up AppointmentsAttendin g Physician: Attending Physician: Jazzy Dominguez MD Attending physician eliseo correa timeframe: In 6 days Special instructions:No lifting >10lbs Call if fever, soaking 1 pad per hour, or elevated BP. Call if persistent nausea or emesis. No intercourse. at 1643 RPT #:[id number] OF REPORT CLClinical tipp0195-15-55R39:30:00F.[id number] l able for patient aueiCDYLYRHWPXIKWM5390-37-37M65:45:18 2022-01-13 08:57:00 [id number]:57:00 [facility]OB Postpart Progr NoteREPORT#:[id number] REPORT STATUS: SignedDATE:01/13/22 TIME: 856 PATIENT: HIEU LOPEZ UNIT #: [id number]#: [id number] [address] [birth year] AGE : 31 SEX: F ATTEND: Jazzy Dominguez [facility] AUTHOR: Jazzy Dominguez MD * ALL edits or amendments must be made on the electronic/computer document * See AddendumSubjective SubjectiveAdmission EGA: Weeks: 39 Days: 2EGA at delivery (wks/days): 39 weeks (05/26)Status/Day: post operative (POD4)Patient reports: Comments:One small episode of emesis overnight. Large BM yesterday. Ambulating. Pain/bleeding controlled. Was NPO yesterday. Objective GeneralVS:Vital Signs: Date Time Temp Pulse Resp B/P B/P Pulse O2 O2 Flow FiO2 Mean Ox Delivery Rate 01/13 0100 99.0 85 18 119/78 PATIENT WEIGHT: Weight (lb): Weight (oz): Weight (kg): 84.542921 Physical ExamBreasts: Feeding: breast or formulaLungs: No increased WOBNeuro: Exam: alert, oriented x3, normal speechAbdomen: soft, no abnormal tenderness, no guarding, Abdomen less distendedIncision site: well approximated edges, dry, no drainage, no inflammationUterus: non-tenderFundus: below the umbilicusLochia: normalLower extremities: Edema: trace ResultFindings/Data:Laboratory Tests: 12/21 4 1048 Chemistry Sodium (135 - 145 mEq/L) 138 Potassium (3.5 - 5.0 mEq/L) 3.4 L Chloride (100 - 115 mEq/L) 105 Carbon Dioxide (22 - 31 mEq/L) 28 Anion Gap (10 - 20) 8.80 L BUN (7 - 18 mg/dL) 11 Creatinine (0.5 - 1.0 mg/dL) 0.7 Glomerular Filt r Rate (>60 ml/min) 99 Glucose (65 - 110 mg/dL) 91 Calcium (8.4 - 10.2 mg/dL) 8.0 L Total Bilirubin (0.2 - 1.0 mg/dL) 0.4 AST (15 - 37 units/L) 16 ALT (12 - 78 units/L) 14 Total Alk Phosphatase (46 - 116 units/L) 74 Total Protein (6.3 - 8.2 gm/dL) 4.8 L Albumin (3.4 - 4.8 gm/dL) 1.9 L Hematology WBC (6.5 - 12.3 K/mm3) 17.0 H RBC (3.51 - 4.69 M/mm3) 3.35 L Hgb (10.1 - 13.8 g/dL) 10.1 Hct (32.5 - 41.8 %) 29.9 L MCV (84.6 - 96.6 fL) 89.3 MCH (27.3 - 33.9 pg) 30.1 MCHC (32.0 - 34.2 gm/dL) 33.8 RDW (12.2 - 16.3 %) 13.1 Plt Count (134 - 363 K/mm3) 319 MPV (9.2 - 12.7 fL) 9.4 Neut % (Auto) (57.9 - 77.3 %) 85.3 H Lymph % (Auto) (14.5 - 29.7 %) 8.9 L [place] % (Auto) (3.6 - 10.2 %) 4.1 Eos % (Auto) (0.0 - 3. 0 %) 0.6 Baso % (Auto) (0.1 - 0.9 %) 0.2 Neut # (Auto) (K/mm3) 14.5 Lymph # (Auto) (K/mm3) 1.5 [place] # (Auto) (K/mm3) 0.7 Eos # (Auto) (K/mm3) 0.11 Baso # (Auto) (K/mm3) 0.0 Recent Impressions:RADIOLOGY - XR ABDOMEN 1 V 01/12 1005 Report Impression - Status: SIGNED Entered: 01/12/2022 1019 IMPRESSION: 1. Findings favoring postoperative adynamic ileus. 2. No pneumatosis or portal venous air. 3. Clear lung bases. 4. Prior cholecystectomy. Impression By: Hannah.[email or web address] - Rebel Fuchs MD Diagnosis , Assessment Plan Diagnosis, Assessment PlanFree text A P:POD 4 s/p pLTCS d/t arrest of descent1. Post operative ileus-Currently on CLD -KUB c/w ileus-Patient passing flatus/BM 2. H H stable3. S/p circ Dispo: Advance to CLD today Assessment: nml progressPlan: routine care, circumcision tomorrow, discharge tomorrow at 0906 Addendum 1: 01/13/22 1714 by Jazzy Dominguez MD Patient tolerated CLD with n o nausea. Advanced to bland/low fiber. Pt able to tolerate small amounts of chicken/crackers/fruit/yogurt. Denies further episodesof nausea/emesis. Overall feeling much better. Ambulating. Took a shower. Strongly desires discharge home. at 1716 RPT #:[id number] OF REPORT PRProgress nsnp6220-00-50X49:57:00F.[id number] l able for patient obdtHHUFNGYFOPHEKF8065-94-77C01:06:49 2022-01-12 16:57:00 [id number]:57:00 [facility] ([facility])OB Postpart Progr NoteREPORT#:[id number] REPORT STATUS: SignedDATE:01/12/22 TIME: 1656 PATIENT: HIEU LOPEZ UNIT #: [id number]#: [id number] ROOM[facility]BED: [facility]-ADOB: [birth year] AGE : 31 SEX: F ATTEND: Jazzy Dominguez [facility] AUTHOR: Jazzy Dominguez MD * ALL edits or amendments must be made on the electronic/computer document * Subjective SubjectiveAdmission EGA: Weeks: 39 Days: 2EGA at delivery (wks/days): 39 weeks (05/26)Status/Day: post operative (POD3)Patient reports: Patient reports: Yes normal lochia, Yes pain management effective, Yes voiding well, Yes tolerating ambulation, Yes flatus, Yes bowel movement, Yes nausea, Yes vomiting,No tolerating po well, No excessive bleeding, No abdominal pain Comments:Reports persistent nausea/emesis since yesterday. States she was able to keep bland enrike e down last night however prior to this had multiple episodes of emesis. Episode of emesis this AM after drinking ensure. Objective GeneralVS:Vital Signs: Date Time Temp Pulse Resp B/P B/P Pulse O2 O2 Flow FiO2 Mean Ox Delivery Rate 01/12 0215 98.1 79 18 107/68 01/11 1720 98. 4 74 19 138/80 99 PATIENT WEIGHT: Weight (lb): Weight (oz): Weight (kg): 84.812221 Physical ExamBreasts: Feeding: breast or formulaLungs: No increased WOBNeuro: Exam: alert, oriented x3, normal speechAbdomen: soft, no abnormal tenderness, Distended, tympanicIncision site: well approximated edges, dry, no drainage, no inflammationUterus: tenderFundus: below the umbilicusLochia: normalLower extremities: Edema: trace ResultFindings/Data:Laboratory Tests: 12/21 4 1048 Chemistry Sodium (135 - 145 mEq/L) 138 Potassium (3.5 - 5.0 mEq/L) 3.4 L Chloride (100 - 115 mEq/L) 105 Carbon Dioxide (22 - 31 mEq/L) 28 Anion Gap (10 - 20) 8.80 L BUN (7 - 18 mg/dL) 11 Creatinine (0.5 - 1.0 mg/dL) 0.7 Glomerular Filtr Rate (>60 ml/min) 99 Glucose (65 - 110 mg/dL) 91 Calcium (8.4 - 10.2 mg/dL) 8.0 L Total Bilirubin (0.2 - 1.0 mg/dL) 0.4 AST (15 - 37 units/L) 16 ALT (12 - 78 units/L) 14 Total Alk Phosphatase (46 - 116 units/L) 74 Total Protein (6.3 - 8.2 gm/dL) 4.8 L Albumin (3.4 - 4.8 gm/dL ) 1.9 L Hematology WBC (6.5 - 12.3 K/mm3) 17.0 H RBC (3.51 - 4.69 M/mm3) 3.35 L Hgb (10.1 - 13.8 g/dL) 10.1 Hct (32.5 - 41.8 %) 29.9 L MCV (84.6 - 96.6 fL) 89.3 MCH (27.3 - 33.9 pg) 30.1 MCHC (32.0 - 34.2 gm/dL) 33.8 RDW (12.2 - 16.3 %) 13.1 Plt Count (134 - 363 K/mm3) 319 MPV (9.2 - 12.7 fL) 9.4 Neut % (Auto) (57.9 - 77.3 %) 85.3 H Lymph % (Auto) (14.5 - 29.7 %) 8.9 L [place] % (Auto) (3.6 - 10.2 %) 4.1 Eos % (Auto) (0.0 - 3.0 %) 0.6 Baso % (Auto) (0.1 - 0.9 %) 0.2 Neut # (Auto) (K/mm3) 14.5 Lymph # (Auto) (K/mm3) 1.5 [place] # (Auto) (K/mm3) 0.7 Eos # (Auto) (K/mm3) 0.11 Baso # (Auto) (K/mm3) 0.0 Recent Impressions:RADIOLOGY - XR ABDOMEN 1 V 01/12 1005 Report Impression - Status: SIGNED Entered: 01/12/2022 1019 IMPRESSION: 1. Findings favoring postoperative adynamic ileus. 2. No pneumatosis or portal venous air. 3. Clear lung bases. 4. Prior cholecystectomy. Impression By: Hannah.ERR2 - Rebel Fuhcs MD Diagnosis , Assessment Plan Diagnosis, Assessment PlanFree text A P:POD 3 s/p pLTCS d/t arrest of descent1. Post operative ileus-Currently NPO with IVF -KUB c/w ileus-Patient passing flatus/BM however abdomen distended2. H H stable3. S/p circ today Dispo: Advance diet to CLD tomorrow if no furthe r emesis tonight at 1703 RPT #:[id number] OF REPORT PRProgress [id number]:57:00F.[id number] l able for patient aqfjWIYUGFPDFCNZDM5179-48-34Q52:04:10 2022-01-11 13:24:00 [id number]:24:00 [facility])OB Postpart Progr NoteREPORT#:[id number] REPORT STATUS: SignedDATE:01/11/22 TIME: 1324 PATIENT: HIEU LOPEZ UNIT #: [id number]#: [id number] [address] [birth year] AGE : 31 SEX: F ATTEND: Jazzy Dominguez [facility] AUTHOR: Elizabeth Thompson MD * ALL edits or amendments must be made on the electronic/computer document * Subjective SubjectiveAdmission EGA: Weeks: 39 Days: 2EGA at delivery (wks/days): 39 weeks (3/7)Status/day: post (d1)Patient reports: Patient reports : No: complaints. Objective Nursing Documentation ReviewNursing data:The data set between the alexa omar lines has been imported from nursing documentation. Any exceptions have been noted below under Provider comments. _ Feeding preference: Post hemorrhage risk score: Low Risk for Hemorrhage _ Provider comments on imported nursing data: [] GeneralVS:Vital Signs Date Temp Pulse Resp B/P B/P Mean Pulse Ox FiO2 01/10-01/11 97.7-98.7 76-84 18 110-129/69-85 97 Last Documented: Resul t Date Time Pulse Ox 97 01/11 911 B/P 129/85 10 0911 Temp 98.7 01/11 09 Pulse 76 01/11 09 Resp 18 01/11 911 B/P Mean 75.0 01/10 0345 PATIENT WEIGHT: Weight (lb): Weight (oz): Weight (kg): 84.400932 Medications:Active Meds + DC'd Last 24 HrsAcetaminophen (ACETAMINOPHEN 325 MG TAB) 650 MG Q6H PRN PRN PO Ibuprofen (IBUPROFEN 600 MG TAB) 600 MG Q6H PRN PRN PO Docusate Sodiu m (DOCUSATE SODIUM 100 MG CAP) 200 MG BEDTIME PO Tobramycin Sulfate (NEBCIN) 100 ML Q24H IV Oxycodone HCl (OXYIR 5MG TAB) 5 MG Q4H PRN PRN P O Oxycodone HCl (Oxycodone HCl 10 MG IR) 10 MG Q4 H PRN PRN PO Multivit/Folic Acid/Iron ( Vitamin Tablet) 1 TAB DAILY PO Ondansetron Base (ZOFRAN ODT 4MG) 4 MG Q6H PRN PRN PO Ondansetron HCl (ZOFRAN 2 MG/ML 4 MG SYR) 4 MG Q6H PRN PRN IV Ibuprofen (IBUPROFEN 600 MG TAB) 600 MG Q6H PO Acetaminophen (ACETAMINOPHEN 325 MG TAB) 650 MG Q6H PO Al Hydrox/Mg Hydrox/Simethicone (MYLANTA 30 ML SUSP) 30 ML ASDIR PRN PO Dextrose/Lactated Ringer's (DEXTROS E 5% IN LACTATED RINGERS 1000 ML) 1,000 ML ASDIR I V (DC) Diphtheria/Pertussis/Tetanus Vacc (ADACEL VACCINE) 0.5 ML ASDIR IM Hydrocortisone (HYDROCORTISONE 1% TOP CREAM 30 GM) 1 APPL ASDIR PRN TOPICAL Hydrocortisone/Pramoxine (ANALPRAM H C 2.5% CRM SINGLES) 1 GM ASDIR PRN RECTAL (CKD) Magnesium Hydroxide (MILK OF MAGNESIA 30 ML UD) 30 ML BID PRN PRN PO Methylergonovine Maleate (METHERGINE 0.2 MG/ML 1 ML AMP) 0.2 MG ASDIR PRN IM Naloxone HCl (NALOXONE HCL 0.4 MG/ML 1 ML VIAL) 0.4 MG ANES ASDIR PRN IV Naloxone HCl (NALOXONE HCL 0.4 MG/ML 1 ML VIAL) 0.04 MG Q4H PRN PRN IV Naloxone HCl (NALOXONE HCL 0.4 MG/ML 1 ML VIAL) 0.08 MG Q4H PRN PRN IV Polyethylene Glycol (POLYETHYLENE GLYCOL PKT) 17 GM DAILY PRN PRN PO Simethicone (SIMETHICONE 80 MG TAB) 80 MG PC HS PRN PRN PO Tranexamic Acid (Tranexamic Acid) 1,000 MG ASDIR PRN IV Sodium Chloride (SODIUM CHLORIDE 0.9% 100 mL MBP) 100 MLAmpicillin Sodium (POLYCILLIN-N 2 GM VIAL) 2 G M Q6H IV (DC) Sodium Chloride (SODIUM CHLORIDE 0.9 % 100 mL MBP) 100 MLClindamycin Phosphate (CLEOCIN 300 MG/NS 50 ML) 50 ML Q8H IV (DC) Neomycin/Polymyxin/Bacitracin (TRIPLE ANTIBIOTIC 0.94 GM) 1 APPLIC BID PRN TOPICAL Physical ExamLungs: unlabored breathingNeuro: Exam: alert , oriented x3, normal speechIncision site: well approximated edgesUterus: involution appropriateLochia: normalLower extremities: Edema: trace ResultsFindings/data:Laboratory Tests: 01/11 1153 Hematology Hgb (10.1 - 13.8 g/dL) 10.5 Hct (32.5 - 41.8 %) 30.5 L Diagnosis, Assessment Plan Diagnosis, Assessment PlanAssessment: nml progressPlan: routine care, circumcision tomorrow, discharge tomorrow at 1326 RPT #:[id number] OF REPORT PRProgress [id number]:24:00F.[id number] l able for patient fyxzUCEEVNJFJMEHEV0887-85-56N81:26:13 2022-01-10 09:48:00 [id number]:48:00 [facility])OB Postpart Progr NoteREPORT#:[id number] REPORT STATUS: SignedDATE:01/10/22 TIME: 0948 PATIENT: HIEU LOPEZ UNIT #: [id number]#: [id number] [address] [birth year] AGE : 31 SEX: F ATTEND: Jazzy Dominguez [facility] AUTHOR: Jessica Dixon MD * ALL edits o r amendments must be made on the electronic/computer document * Subjective SubjectiveEGA at delivery (wks/days): 39 weeks (3)Status/day: post (d0-1)Patient reports: Patient reports: Yes: normal lochia, pain management effective, tolerating po well. Objective Nursing Documentation ReviewNursing data:The data set between the solid lines has been imported from nursing documentation. Any exceptions have been noted below under Provider comments. _ Feeding preference: Post hemorrhage risk score: Low Risk for Hemorrhage _ Provider comments on imported nursing data: [] GeneralVS:Vital SignsDate Temp Pulse Resp B/P B/P Mean Pulse Ox MlK478/-01/10 98.0-100.1 70-115 18-37 89-191/46-10 66.0-124.0 92-97 3 Las t Documented: Result Date Time Pulse Ox 96 01/10 0400 Pulse 101 01/10 0400 B/P Mean 75.0 01/10 0345 B/P 102/56 01/10 0345 Resp 20 01/10 034 Temp 99.8 01/10 0330 PATIENT WEIGHT: Weight (lb) : Weight (oz): Weight (kg): 84.758581 Physical ExamLungs: unlabored breathingNeuro: Exam: alert , oriented x3, normal speechIncision site: dressin g clean dryUterus: involution appropriateLower extremities: Edema: trace Diagnosis, Assessment Plan Diagnosis, Assessment PlanAssessment: nml progressPlan: routine carePlan discussed with: patient, spouse/partner at 0950 RPT #:[id number] OF REPORT PRProgress [id number]:48:00F.[id number] l able for patient kdesWMERPRWLATAMYS8421-12-76H32:50:17 2022-01-10 08:01:00 [id number]:01:[id number] [facility] [address] [place] [id number] PATIENT NAME: HIEU LOPEZ ADMIT DATE: 01/09/22ACCOUNT NO: [id number] SADIA Oquendo NO: [id number] AGE: 31 SEX: F ADMITTING PHYSICIAN: Jazzy Dominguez MD ATTENDING PHYSICIAN: Jazzy Dominguez MD OPERATION DATE: 01/10/2022 PREOPERATIVE DIAGNOSES:1. Intrauterine at 39 and 3/ 7 weeks' gestational age.2. Arrest of descent.3. Chorioamnionitis. POSTOPERATIVE DIAGNOSES:1. Intrauterine at 39 and 3/7 weeks' gestational age.2. Arrest of descent.3. Chorioamnionitis. PROCEDURE: Primary low transverse section via Pfannenstiel incision. SURGEON: Pierre Benitez M.D. SUPERVISOR WHEEL SHOP: Rui Kebede. ANESTHESIA: Epidural. COMPLICATIONS: None. ESTIMATED BLOOD LOSS: 800 mL. INTRAVENOUS FLUIDS: 1000 mL. URINE OUTPUT: 150 mL. OPERATIVE FINDINGS: Viable male i n the vertex position, weighing 7 pounds 13 ounces with Apgars of 3 at 1 minute and 9 at 5 minutes. Normal uterus, tubes, and ovaries were noted bilaterally. PROCEDURE IN DETAIL: The patient wa s taken from her labor and delivery suite, where she had already had an epidural in place, to the operating suite. There, she was placed in dorsal supine position with a leftward tilt. She had already had a Juan catheter in place. The patient was then sterilely prepped and draped. Adequate anesthesia was proven with a negative Allis test. A timeout procedure was then performed. Next, a Pfannenstiel skin incision wa s made with the scalpel. The incision was carried down through the underlying layer of tissue to the fascia. The fascia was incised in transverse fashion with the scalpel. Fascial incision was then extended bilaterally in a curvilinear fashion with the Johnson scissors. The superior aspect of the fascia was then grasped with 2 Ochsners, elevated and dissected off the underlying rectus PATIENT NAME: HIEU LOPEZ muscles both superiorly and inferiorly. The rectus muscles were then divided inthe midline. The peritoneum was then entered bluntly. Peritoneal incision wa s then extended superiorly and inferiorly with traction. Bladder blade was then placed. Next, a transverse lower uterine segment incision was made with a scalpel above the level of the bladder reflection. Upon entering the uterine cavity, clear amniotic fluid was noted. The 's vertex was then delivered atraumatically. The rest of the was then delivered. Delayed cord clamping for a minute wa s performed. Infant was then handed off to the awaitingnurse. Cord blood was then obtained. The placenta was then delivered manually. The placenta was passed off the field to MD Banda for cord blood collection. The placenta was then sent to pathology. Uterus was then exteriorized and cleared of all clots and debris with moist laparotomy sponge. The uterine incision was then closed in a single layer using running interlocking #1 chromic. Once this was completed , excellent hemostasis was noted. The uterus, tubes, and ovaries were inspected with findings as noted above. Posterior cul-de-sac was then cleared of all clots and debris with moist laparotomy sponge. The uterus was then replaced in the patient's abdomen. Both gutters were cleared of all clots and debris with a moist laparotomy sponge and were then copiously irrigated with warm normal saline. Incision agai n was inspected and noted to be hemostatic. Peritoneum was then closed with a running continuous suture of 3-0 Vicryl. The rectus muscles were then irrigated and found to be hemostatic. The rectus muscles were then reapproximated in the midline with 3 hwqeih-of-tviep sutures of 0 chromic. The fascia l incision was then closed with a running continuous suture of 0 Vicryl. Subcutaneous tissues were then irrigated and noted to be hemostatic. The subcutaneous tissue was then reapproximated with a running continuous suture of 2-0 plain gut. Skin incision was then closed with a running subcuticular suture of 3-0 Monocryl on aKeith needle. Dermabond was then applied. Sponge, lap, needle and instrument counts were correct x2 per the operating room staff. The patient had been givenampicillin and gentamicin prior to arrival in the OR. She was then taken to recovery room awake and in stable condition. Dictated By: Pierre Benitez MD Date Dictated: 01/10/2022 08:01:15Date Transcribed: 01/10/2022 09:12:07JAYDE/KIKO/Candis #: [id number] ID: [id number] by Pierre Benitez MD On 01/15/2022 11:58:59 AM at 1158 PATIENT NAME: HIEU LOPEZ frjjrg1898-84-29E09:12:00F.[id number] i lable for patient lmmdZICBLAZEHAJEIM2481-85-84H57:59:35 2022-01-10 02:36:00 [id number]:36:00 [facility])OB Delivery NoteREPORT#:[id number] REPORT STATUS: SignedDATE:01/10/22 TIME: 023 PATIENT: HIEU LOPEZ UNIT #: [id number]#: [id number] [facility] AGE: 31 SEX: F ATTEND: Jazzy Dominguez [facility] AUTHOR: Pierre Benitez MD * ALL edits or amendments must be made on the electronic/computer document * OB Delivery Nursing Documentation ReviewNursing data:The data set between the solid lines has been imported from nursing documentation. Any exceptions have been noted below under Provider comments. _ ROM date: 01/09/22 ROM time: 1120Membranes rupture method: SROMAmniotic fluid color: ClearAmniotic fluid amount: Steroids prior to arrival: Antibiotic prophylaxis given: Post hemorrhage risk score: Low Risk for Hemorrhage. Delivery date infant A: Delivery time infant A: Birthweight (gm) infant A: Weight (lb) A: Weight (oz) infant A: Gender infant A: 1 minute A: 5 minutes A: 10 minutes A: Cord pH obtained infant A: Vacuum time infant A: Vacuum # pulls infant A: Vacuum # popoffs A: QBL at delivery: _ Provider comments on imported nursing data: [] Infant B (add'l data):The data set between the solid lines has been imported from nursing documentation. Any exceptions have been noted below under Provider comments. _ Delivery date infant B: Delivery time infant B: Birthweight (gm) infant B: Weight (lb) B: Weight (oz) infant B: Gender infant B: 1 minute infant B: 5 minutes B: 10 minutes infant B: Cord pH obtained infant B: Vacuum time infant B: Vacuum # pulls infant B: Vacuum # popoffs B: _ Provider comments on imported nursing data: [] Pre-deliveryGBS status: GBS status: negative Prophylaxis administered: noneNewborn evaluation at delivery: NRP certified personnelAdmission EGA: Weeks: 39 Days: 2EGA at delivery (wks/days) : 39 weeks (3) Steroids Prior to DeliverySteroid s prior to delivery: no, delivery on arrival Blood Loss/DetailsBlood loss at delivery: no more than expectedEBL at delivery (ml's): 800 Baby A InformationBaby A information Delivery date: 01/10/22 Delivery time: 0055 status: live born Wt of baby (lbs/oz): 7 lbs 13 oz Gender: male 1 minute: 3 5 minutes: 9 Presentation: vertex Anomalies:noneABG details Baby A Cord blood gases: not collectedNuchal cor d Baby A Nuchal cord: no Anomalies:none Operative Note-FullNursing Data:The data set between the solid lines has been imported from nursing documentation. Any exceptions have been noted below under Provider comments. _ ROM date: 01/09/22 ROM time: 1120Membranes rupture method: SROMAmniotic fluid color: ClearAmniotic fluid amount: Steroids prior to arrival: Antibiotic prophylaxis given: Post hemorrhage risk score: Low Risk for Hemorrhage. Delivery date A: Delivery time infant A: Birthweight (gm) A: Weight (lb) infant A: Weight (oz) infant A: Gender A: 1 minute A: 5 minutes infant A: 10 minutes infant A: Cord pH obtained infant A: Vacuum time infant A: Vacuum # pulls A: Vacuum # popoffs infant A: QBL at delivery: _ Provider comments on imported nursing data: [] )(Start date: 01/10/22)(Start time: 52)(Pre-procedure diagnosis:IUIP at 39 3/7 wgaArrest of DescentChorioamnionitis)(Post-procedure diagnosis: same as pre-procedure dx)(Procedures performed:Primary LTCS)(Technique/Procedure:See Dictation)(Primary Surgeon: Pierre Benitez)(Plant Packer(s): Rui Longoria)(Anesthesia: epidural anesthetic)(Operative findings:Normal uterus, tubes and ovaries bilaterally)(Complications: none)( Estimated blood loss (ml): 800)(Specimens removed/altered: noneCultures sent: Placenta sent to pathDrain(s)/tube(s): Juan)(Implant(s): noneFluids:1000 ccUrine output:150 ccDisposition : PACUCounts: Sponge count: correct Instrument count: correct Needle count: correct Cottonoid count: correct Delivery DeliveryCesarean section indication: 2n d stage arrest of labor Priority: indicated (add on) Decision to incision time: greater than 30 mins Antibiotic prior to incision: 1 dose )(SCDs applied activated: Yes Uterine incision: low transverse Consent: indication discussed, questions answered, pt consent to op delivery Mother's condition: mother stable Infant's condition: infant stable in room at 0244 RPT #:[id number] OF REPORT CLClinical lium5554-60-99Z10:36:00F.[id number] l able for patient smuiVFDXBTAMKQWCJX4113-80-08Z46:44:24 2022-01-10 02:29:00 [id number]:29:00 [facility])Clinical NoteREPORT#:[id number] REPORT STATUS: SignedDATE:01/10/22 TIME: 228 PATIENT: HIEU LOPEZ UNIT #: [id number]#: [id number] [facility] [birth year] AGE: 31 SEX: F ATTEND: Jazzy Dominguez [facility] AUTHOR: Pierre Benitez MD * ALL edits or amendments must be made on the electronic/computer document * Clinical NoteNote:(written after procedure)Patient pushing for 2 1/2 hours. No descent of vertex noted. Still 0-+1 station. Large amount of caput noted. Patient complaining of exhaustion and no longer wanting to push. Discussed proceeding with C/S due to arrest of descent. Risks of procedure reviewed. All questions answered. Patient and partner desire to proceed with C/S. Electronically Licha d by Pierre Benitez MD on 01/10/22 at 0232 RPT #:[id number] OF REPORT CLClinical ezzq6557-18-80S64:29:00F.[id number] dagoberto able for patient jzwhJNEITBXJOCRGZO1388-93-14Z62:32:13 2022-01-09 22:18:00 [id number]:18:00 [facility])Clinical NoteREPORT#:[id number] REPORT STATUS: SignedDATE:01/09/22 TIME: 2217 PATIENT: HIEU LOPEZ UNIT #: [id number]#: [id number] [facility] [birth year] AGE: 31 SEX: F ATTEND: Jazzy Dominguez [facility] AUTHOR: Pierre Benitez MD * ALL edits or amendments must be made on the electronic/computer document * Clinical NoteNote:Patient noted to have temp of of 100.1 at 2000. Then noted to develop mild tachycardia and tachycardia in 200's. Give n fluid bolus and tylenol. Amp/Tobramycin started. Last temp 101.9. Cervix c/c/+1. Has been pushing for one hour with little descent. Small amount o f caput noted. Adequate pelvis noted. Will continu e pushing. Good fhr variability noted, at 2222 RPT #:[id number] OF REPORT CLClinical dhhq6901-94-36D72:18:00F.[id number] dagoberto able for patient ajyzRNOQSOVVBDKZFS6618-10-09Y95:22:47 2022-01-09 15:30:00 [id number]:30:00 [facility])OB Admission / H PREPORT#:[id number] REPORT STATUS: SignedDATE:01/09/22 TIME: 1530 PATIENT: HIEU LOPEZ UNIT #: [id number]#: [id number] [facility] [birth year] AGE: 31 SEX: F ATTEND: Jazzy Dominguez [facility] AUTHOR: Jazzy Dominguez MD * ALL edits or amendments must be made on the electronic/computer document * OB HistoryHPI:Patient presents for CTX and LOF. ROM + noted to be positive. ROM noted to be at 1130. history: : 2 Term: 0 : 0 Abortus: 1 Living children: 0Current : Admission EGA (weeks) 39 Admission EGA (days) 2Conditions of : HSV- on suppression therapy, COVID in pregnancyLabs: Blood type: O Rh: positive Rubella: immune Hepatitis B: negative HIV: negative STD: negative Syphilis: currently negative GBS: negativeProcedures: feta l ultrasound, genetic testing (NIPT low risk XY) Past HistoryAdditional Medical History:HSVAdditional Surgical History:Cholecystectomy with complication-had bile leak and needed second surgery. Smoking status for patients 13 years old or older: Never SmokerAllergies:Coded Allergies:No Known Allergies (01/09/22) Review of SystemsAll system s rev neg: except as marked Objective GeneralVS:Last Documented: Result Date Time B/P Mean 110.0 01/09 1455 B/P 148/83 01/09 1455 Pulse 93 01/09 1455 Temp 98.0 01/09 1048 Resp 18 01/09 1048 Vital Signs Date Temp Pulse Resp B/P B/P Mean Pulse Ox FiO2 10/21 98.0 70-93 18 131-148/77-83 101.0-110.0 PATIENT WEIGHT: Weight (lb): Weight (oz): Weight (kg): 84.072316 Physical ExamLungs: unlabored breathingNeuro: Exam: alert, oriented x3, normal speechAbdomen: gravid, soft, no abnormal tendernessUterine activity: Monitor: toco Frequency (description): regularPelvic exam: Pelvis clinically adequate: yesCervical/ exam: Dilatation (cm): 4 Effacement (%): 80 Est wt (gms): 3400 Suspected macrosomia: No Suspected > 5000 grams: No station: - 2 presentation: cephalicMembranes: Membranes: SROM ROM date: 01/09/22 ROM time: 1130Lower extremities: Edema: traceBaby A: Baby A baseline: 130 bpm Baby A variability: moderate 6-25 bpm Baby A accelerations: 15 X 15 Baby A decelerations: non e Baby A FHR category: category 1 ResultsFindings/Data:Laboratory Tests: 01/09 01/09 1203 1120 Hematology WBC (6.5 - 12.3 K/mm3 ) 9.3 RBC (3.51 - 4.69 M/mm3) 4.10 Hgb (10.1 - 13.8 g/dL) 12.4 Hct (32.5 - 41.8 %) 36.5 MCV (84.6 - 96.6 fL) 89.0 MCH (27.3 - 33.9 pg) 30.2 MCHC (32.0 - 34.2 gm/dL) 34.0 RDW (12.2 - 16.3 %) 12.8 Plt Count (134 - 363 K/mm3) 279 MPV (9.2 - 12.7 fL) 10.0 Neut % (Auto) (57.9 - 77.3 %) 71.4 Lymph % (Auto) (14.5 - 29.7 %) 19.3 [place] % (Auto) (3.6 - 10.2 %) 7.1 Eos % (Auto) (0.0 - 3. 0 %) 1.2 Baso % (Auto) (0.1 - 0.9 %) 0.4 Neut # (Auto) (K/mm3) 6.6 Lymph # (Auto) (K/mm3) 1.8 [place] # (Auto) (K/mm3) 0.7 Eos # (Auto) (K/mm3) 0.11 Baso # (Auto) (K/mm3) 0.0 Other Body Source Membranes Rupture RUPTURED Serology Treponema pallidum Ab (NONREACTIVE) NONREACTIVE Hep Bs Antigen (NONREACTIVE) NONREACTIVE Hepatitis C Antibody (NONREACTIVE) NONREACTIVE Hep C Ab Signal/Cutoff (<0.80) 0.03 HIV 1 2 Antibody (NONREACTIVE) NONREACTIVE Diagnosis, Assessment Plan Diagnosis, Assessment PlanAssessment/Impression: spont.active labor>39 wks, PROM 39 plus weeks, reassuringfetal statusPlan: [facility], Pitocin ordered for augmentation of labor at 1537 RPT #:[id number] OF REPORT HPHistory and physical [id number] 1 AVAvailable for patient [id number]
[2023-02-14 09:50] LABS: SARS-COV-2 RT PCR NEGATIVE (NEGATIVE)
--- NOTE | 2023-02-14 09:52 | ER ---
Nurse's Notes [facility] Name: Deyanira Valencia Age: 32 yrs Sex: Female : 1990 Arrival Date: 02/14/2023 Time: 08:35 Bed 13 Private MD: Diagnosis: Acute bronchitis, unspecified Presentation: 02/14 08:47 Chief complaint: Patient states: Cough, congestion since Wednesday. No fever. ll1 Coronavirus screen: Client denies travel out of the [place] in the last 14 days. chills, congestion, cough unrelated to allergies, fatigue. Ebola Screen: Patient denies travel to an Ebola-affected area in the 21 days before illness onset. Initial Sepsis Screen: Does the patient meet any 2 criteria? No. Patient's initial sepsis screen is negative. Does the patient have a suspected source of infection? Yes: Productive cough/pneumonia. Risk Assessment: Do you want to hurt yourself or someone else? Patient reports no desire to harm self or others. Onset of symptoms was February 10, 2023. 08:47 Method Of Arrival: Ambulatory ll1 08:47 Acuity: TONEY 4 ll1 Triage Assessment: 08:47 General: Appears in no apparent distress. Behavior is calm, cooperative, appropriate ll1 for age, Reports chills for feeling ill for fatigue for. Pain: Denies pain. EENT: Reports nasal congestion. Respiratory: Reports cough that is. Historical: - Allergies: 08:46 No Known Allergies; ll1 - PMHx: 08:46 None; ll1 - PSHx: 08:46 Cholecystectomy; Bile duct repair; ll1 - Immunization history:: Adult Immunizations up to date. - Social history:: Smoking status: Reported history of juuling and/or vaping. Screenin:59 [facility] ED Fall Risk Assessment (Adult) Score/Fall Risk Level 0 - 2 = Low Risk ll1 Oriented to surroundings, Maintained a safe environment, Educated pt \T\ family on fall prevention, incl call for assistance when getting out of bed, Hourly rounding (assess needs \T\ fall precautionary measures) done. Abuse screen: Denies threats or abuse. Nutritional screening: No deficits noted. Tuberculosis screening: No symptoms or risk factors identified. Assessment: 09:01 Reassessment: No changes from previously documented assessment. Patient and/or family ll1 updated on plan of care and expected duration. Pain level reassessed. 10:00 Reassessment: Patient appears in no apparent distress at this time. Patient and/or eh3 family updated on plan of care and expected duration. Pain level reassessed. Patient is alert, oriented x 3, equal unlabored respirations, skin warm/dry/pink. Vital Signs: 08:47 BP 156 / 104; Pulse 88; Resp 18; Temp 98.6; Pulse Ox 99% on R/A; Weight 75.75 kg; ll1 Height 5 ft. 0 in. ; Pain 2/10; 10:00 BP 131 / 94; Pulse 83; Resp 18; Pulse Ox 100% on R/A; eh3 08:47 Body Mass Index 32.61 (75.75 kg, 152.4 cm) ll1 08:47 Pain Scale: Adult ll1 ED Course: 08:38 Patient arrived in ED. mg5 08:40 Mary Anne Almeida FNP-C is PHCP. snw 08:40 Prasanna Banda MD is Attending Physician. snw 08:45 Arm band placed on Patient placed in an exam room, on a stretcher. ll1 08:49 Triage completed. ll1 08:58 Raquel Regan, RN is Primary Nurse. ll1 08:58 COVID-19/FLU A+B/RSV Sent. ll1 09:00 Patient has correct armband on for positive identification. Bed in low position. Call eh3 light in reach. Side rails up X2. Provided Education on: use of call paulson. Pulse ox on. NIBP on. 10:10 No provider procedures requiring assistance completed. Patient did not have IV access eh3 during this emergency room visit. Administered Medications: 09:55 Drug: predniSONE PO 40 mg PO once Route: PO; eh3 10:11 Follow up: Response: No adverse reaction eh3 09:55 Drug: Famotidine PO 20 mg PO once Route: PO; eh3 10:10 Follow up: Response: No adverse reaction eh3 09:55 Drug: Tessalon Perle PO 200 mg PO once Route: PO; eh3 10:10 Follow up: Response: No adverse reaction eh3 Medication: 09:01 VIS not applicable for this client. ll1 Outcome: 09:51 Discharge ordered by . snw 10:10 Discharged to home ambulatory, eh3 10:10 Condition: stable 10:10 Discharge instructions given to patient, Instructed on discharge instructions, follow up and referral plans. medication usage, Demonstrated understanding of instructions, follow-up care, medications, Prescriptions given X 3, 10:11 Patient left the ED. 3 Signatures: Mary Anne Almeida, PERSONAL BANKER-C PERSONAL BANKER-Csnw Raquel Regan RN RN ll1 Josseline Sharp RN RN eh3 Concepción Swann mg5
--- NOTE | 2023-02-14 09:52 | EDPHYS ---
Physician Documentation [facility] Name: Deyanira Valencia Age: 32 yrs Sex: Female : 1990 Arrival Date: 02/14/2023 Time: 08:35 Bed 13 Private MD: ED Physician Prasanna Banda HPI: 02/14 09:19 This 32 yrs old Female presents to ER via Ambulatory with complaints of Cold snw Symptoms, Flu Symptoms. 09:19 Onset: The symptoms/episode began/occurred acutely, 4 day(s) ago, and became snw persistent. Associated signs and symptoms: Pertinent positives: congestion, cough, sore throat. It is unknown whether or not the patient has had similar symptoms in the past. The patient has not recently seen a physician. Historical: - Allergies: 08:46 No Known Allergies; ll1 - PMHx: 08:46 None; ll1 - PSHx: 08:46 Cholecystectomy; Bile duct repair; ll1 - Immunization history:: Adult Immunizations up to date. - Social history:: Smoking status: Reported history of juuling and/or vaping. ROS: 09:18 Eyes: Negative for injury, pain, redness, and discharge, snw 09:18 Neck: Negative for injury, pain, and swelling, Cardiovascular: Negative for chest pain, palpitations, and edema, 09:18 Abdomen/GI: Negative for abdominal pain, nausea, vomiting, diarrhea, and constipation, Back: Negative for injury and pain, : Negative for injury, bleeding, discharge, and swelling, MS/Extremity: Negative for injury and deformity, Skin: Negative for injury, rash, and discoloration, Neuro: Negative for headache, weakness, numbness, tingling, and seizure, Psych: Negative for depression, anxiety, suicide ideation, homicidal ideation, and hallucinations, 09:18 Constitutional: Positive for body aches, fatigue, malaise, 09:18 ENT: Positive for nasal discharge, sinus congestion, sore throat, 09:18 Respiratory: Positive for cough, with rust-colored sputum, Exam: :18 Constitutional: This is a well developed, well nourished patient who is awake, alert, snw and in no acute distress. Head/Face: Normocephalic, atraumatic. Eyes: Pupils equal round and reactive to light, extra-ocular motions intact. Lids and lashes normal. Conjunctiva and sclera are non-icteric and not injected. Cornea within normal limits. Periorbital areas with no swelling, redness, or edema. ENT: Nares patent. No nasal discharge, no septal abnormalities noted. Tympanic membranes are normal and external auditory canals are clear. Oropharynx with no redness, swelling, or masses, exudates, or evidence of obstruction, uvula midline. Mucous membranes moist. Neck: Trachea midline, no thyromegaly or masses palpated, and no cervical lymphadenopathy. Supple, full range of motion without nuchal rigidity, or vertebral point tenderness. No Meningismus. Chest/axilla: Normal chest wall appearance and motion. Nontender with no deformity. No lesions are appreciated. Cardiovascular: Regular rate and rhythm with a normal S1 and S2. No gallops, murmurs, or rubs. Normal PMI, no JVD. No pulse deficits. Respiratory: Lungs have equal breath sounds bilaterally, clear to auscultation and percussion. No rales, rhonchi or wheezes noted. No increased work of breathing, no retractions or nasal flaring. Abdomen/GI: Soft, non-tender, with normal bowel sounds. No distension or tympany. No guarding or rebound. No evidence of tenderness throughout. Back: No spinal tenderness. No costovertebral tenderness. Full range of motion. Skin: Warm, dry with normal turgor. Normal color with no rashes, no lesions, and no evidence of cellulitis. MS/ Extremity: Pulses equal, no cyanosis. Neurovascular intact. Full, normal range of motion. Neuro: Awake and alert, GCS 15, oriented to person, place, time, and situation. Cranial nerves II-XII grossly intact. Motor strength 5/5 in all extremities. Sensory grossly intact. Cerebellar exam normal. Normal gait. Psych: Awake, alert, with orientation to person, place and time. Behavior, mood, and affect are within normal limits. Vital Signs: 08:47 BP 156 / 104; Pulse 88; Resp 18; Temp 98.6; Pulse Ox 99% on R/A; Weight 75.75 kg; ll1 Height 5 ft. 0 in. ; Pain 2/10; 10:00 BP 131 / 94; Pulse 83; Resp 18; Pulse Ox 100% on R/A; eh3 08:47 Body Mass Index 32.61 (75.75 kg, 152.4 cm) ll1 08:47 Pain Scale: Adult ll1 MDM: 08:52 Patient medically screened. snw 09:53 Differential diagnosis: viral Infection, bacterial infection. Data reviewed: vital snw signs, nurses notes, lab test result(s). Counseling: I had a detailed discussion with the patient and/or guardian regarding the historical points, exam findings, and any diagnostic results supporting the discharge/admit diagnosis, lab results, the need for outpatient follow up, for definitive care, to return to the emergency department if symptoms worsen or persist or if there are any questions or concerns that arise at home. Special discussion: Based on the history and exam findings, there is no indication for further emergent testing or inpatient evaluation. I discussed with the patient/guardian the need to see the primary care provider for further evaluation of the symptoms. 02/14 08:51 Order name: COVID-19/FLU A+B/RSV; Complete Time: 09:51 snw Administered Medications: 09:55 Drug: predniSONE PO 40 mg PO once Route: PO; eh3 10:11 Follow up: Response: No adverse reaction eh3 09:55 Drug: Famotidine PO 20 mg PO once Route: PO; eh3 10:10 Follow up: Response: No adverse reaction eh3 09:55 Drug: Tessalon Perle PO 200 mg PO once Route: PO; eh3 10:10 Follow up: Response: No adverse reaction eh3 Disposition Summary: 02/14/23 09:51 Discharge Ordered Notes: Location: Home snw Condition: Stable snw Diagnosis - Acute bronchitis, unspecified snw Followup: snw - With: Emergency Department - When: As needed - Reason: Worsening of condition Followup: snw - With: Private Physician - When: 2 - 3 days - Reason: Recheck today's complaints, Continuance of care, Re-evaluation by your physician Discharge Instructions: - Discharge Summary Sheet snw - Acute Bronchitis, Adult snw - Rehydration, Adult snw Forms: - Work release form snw - Medication Reconciliation Form snw - Thank You Letter snw - Antibiotic Education snw - Prescription Opioid Use snw - Patient Portal Instructions snw - Leadership Thank You Letter snw Prescriptions: - Zyrtec 10 mg Oral Tablet - take 1 tablet ORAL route once daily As needed; 20 tablet; Refills: 0, Product snw Selection Permitted - Prednisone 20 mg Oral Tablet - take 2 tablets ORAL route once daily for 5 days; 10 tablet; Refills: 0, Product snw Selection Permitted - Pepcid 20 mg Oral Tablet - take 1 tablet ORAL route once daily; 20 tablet; Refills: 0, Product Selection snw Permitted Signatures: Dispatcher [employer] Mary Anne Sheridan FNP-C CHANNEL MARKETING MANAGER-Johnw Raquel Regan, RN RN ll1 Josseline Sharp RN RN eh3
[2023-02-14] MEDS ORDERED: predniSONE 20 MG TAB ONE (10:12)
[2023-02-14] MEDS ORDERED: BENZONATATE 100 MG CAP PO ONE (10:12)
[2023-02-14] MEDS ORDERED: FAMOTIDINE 20 MG TAB ONE (10:13)
[2023-02-14 10:15] VITALS: TEMP 98.6
[2023-02-14 10:17] VITALS: BP 131/94; O2SAT 100
== END 2023-02-14 10:11 | disposition home or self-care (01) ==
LOC: ER 08:35
DX: J20.9 Acute bronchitis, unspecified (principal); Z11.52 Encounter for screening for COVID-19
CPT/HCPCS: 0241U; 99284; J7512